=== PATIENT | male | born 1945 | race Caucasian/White ===

== ENCOUNTER → 2020-02-21 08:21 | Outpatient (BNVA) | payer OTHER, SELFPAY | PROVIDERS: Family Provider Internal Medicine; PCP Internal Medicine; Visit Provider Urology | DX: N48.6 Induration penis plastica (principal) | CPT/HCPCS: 81001 ==

== ENCOUNTER → 2021-02-20 08:42 | Outpatient (BNVA) | payer OTHER, SELFPAY | PROVIDERS: Family Provider Internal Medicine; PCP Internal Medicine; Visit Provider Urology | DX: N39.9 Disorder of urinary system, unspecified (principal); N48.6 Induration penis plastica; N52.1 Erectile dysfunction due to diseases classified elsewhere; I25.10 Atherosclerotic heart disease of native coronary artery without angina pectoris | CPT/HCPCS: 81003 ==

== ENCOUNTER → 2022-02-25 12:13 | Outpatient (BNVA) | payer OTHER, SELFPAY | PROVIDERS: Family Provider Internal Medicine; PCP Internal Medicine; Visit Provider Urology | DX: N48.6 Induration penis plastica (principal); N52.1 Erectile dysfunction due to diseases classified elsewhere | CPT/HCPCS: 99213 ==

== ENCOUNTER → 2022-09-24 10:49 | Outpatient (BNVA) | payer OTHER, SELFPAY | PROVIDERS: Family Provider Internal Medicine; PCP Internal Medicine; Referring Provider Family Medicine; Visit Provider Orthopaedic Surgery | DX: M75.102 Unspecified rotator cuff tear or rupture of left shoulder, not specified as traumatic (principal) | CPT/HCPCS: 99204 ==

== ENCOUNTER 2024-07-15 10:16 | Outpatient (CLI) | payer OTHER, SELFPAY ==
--- NOTE | 2024-07-15 10:19 | MR_ITS ---
WS: [id number] MRI BRAIN WITH HIGH-RESOLUTION IMAGING THROUGH THE INTERNAL AUDITORY CANALS WITHOUT AND WITH CONTRAST HISTORY: MIXED CONDUCTIVE AND SENSORINEURAL HEARING LOSS, TINITUS LEDY COMPARISON: None available. TECHNIQUE: Multiplanar, multisequence imaging is performed through the brain. Additional 3 mm imaging performed in multiple planes through the internal auditory canal. Postcontrast imaging with 14 ml's of MultiHance. No acute intracranial hemorrhage, midline shift, edema or mass effect. Mild atrophy with moderate periventricular and subcortical small vessel ischemic changes. Small lacun ar infarct LEFT centrum semiovale. Ventricles and extra-axial spaces are normal. No inferior displacement of cerebellar tonsils. Clivus and pituitary gland are normal. Internal and external auditory canals: Unremarkable. Cranial nerves VII and VIII complexes: Unremarkable. No enhancement or mass. Cerebellopontine angles: Normal. Paranasal sinuses: Normal. Mastoid air cells: Normal. Calvarium and scalp: Normal. Visualized solomon of Pérez and dural venous sinuses demonstrate no abnormality. MR/MR iac's wo/w con* [id number] IMPRESSION: 1. No mass or abnormal enhancement along the internal auditory canals or cereb ellopontine angles. 2. Mild cerebral atrophy with moderate small vessel ischemic disease. 3. Normal sized ventricles.
[2024-07-15] MEDS: gadobenate dimeglumine 20 mL vial 14 ML IV (11:09)
== END 2024-07-15 10:17 | disposition home or self-care (01) ==
LOC: RAD 10:17
PROVIDERS: Family Provider Internal Medicine; PCP Internal Medicine; Visit Provider Specialist
DX: I67.82 Cerebral ischemia (principal); H90.8 Mixed conductive and sensorineural hearing loss, unspecified; H93.13 Tinnitus, bilateral
CPT/HCPCS: 70553

== ENCOUNTER 2024-12-15 08:10 | Outpatient (CLI) | payer OTHER, SELFPAY ==
--- NOTE | 2024-12-15 08:17 | MM_ITS ---
WS: [id number] BILATERAL 3D TOMOSYNTHESIS DIGITAL DIAGNOSTIC MAMMOGRAPHY WITH CAD CLINICAL INFORMATION: LT ENLARGED BREAST HISTORY: LEFT breast heaviness TECHNIQUE: Bilateral CC, MLO, and ML views. FINDINGS: Scattered fibroglandular densities bilaterally. No suspicious abnormalities visualized in the LEFT breast. Ultrasound is pending in the area of concern. ULTRASOUND BREAST LEFT TECHNIQUE: Ultrasound left breast focused area of concern. CLINICAL INFORMATION: LT ENLARGED BREAST FINDINGS: Ultrasound LEFT breast. No suspicious abnormalities in the area of concern LEFT breast. Normal retroareolar tissue. No suspicious cystic or solid lesions. No lesions to target for biopsy. MM/MM diag BI tomosynthesis [id number] IMPRESSION: DENSITY: There are scattered areas of fibroglandular density. BI-RADS: 1 - Negative. FOLLOW UP: 1 Year Follow-up
== END 2024-12-15 08:11 | disposition home or self-care (01) ==
PROVIDERS: PCP Internal Medicine; Visit Provider Family Medicine
DX: D48.62 Neoplasm of uncertain behavior of left breast (principal); R92.323 Mammographic fibroglandular density, bilateral breasts
CPT/HCPCS: 76642; 77062; G0279

== ENCOUNTER 2024-12-19 14:17 | Outpatient (CLI) | payer OTHER, SELFPAY ==
--- NOTE | 2024-12-19 14:26 | MR_ITS ---
WS: [id number] MRI HEAD WITH CONTRAST TECHNIQUE: Sagittal T1, T2 axial, T2 axial FLAIR, axial susceptibility weighted imaging, axial diffusion weighted images, and coronal T2 images were obtained. Pre and post-T1 axial and post T1 coronal images. ADC and FSPGR images. CLINICAL INFORMATION: R EYE DECREASED VISION/HX PITUITARY ADENOMA COMPARISON: 2023 FINDINGS: No evidence of restricted diffusion to suggest acute ischemia. Ventricular system and basilar cisterns are patent. Moderate small vessel changes. Moderate parenchymal volume loss. This appears stable compared to previous. Stable tiny chronic lacunar infarct in the LEFT shukla radiata. Normal posterior fossa. Normal vascular flow voids at the skull base. No extra-axial fluid collections. No evidence of mass or mass effect. Paranasal sinuses and mastoid air cells are well aerated. No hemosiderin on susceptibly weighted images. Normal optic chiasm and pituitary infundibulum. No abnormal gadolinium enhancement. Normal visualized dural venous sinuses. MR/MR head wo/w con [id number] IMPRESSION: 1. No evidence of restricted diffusion to suggest acute ischemia. 2. Moderate small vessel changes with moderate parenchymal volume loss appears stable. 3. No hemosiderin on the susceptibility weighted images. 4. Normal optic chiasm and pituitary infundibulum. 5. No abnormal intracranial enhancement.
[2024-12-19] MEDS: gadobenate dimeglumine 20 mL vial IV (15:47)
== END 2024-12-19 14:18 | disposition home or self-care (01) ==
PROVIDERS: PCP Internal Medicine; Visit Provider Family Medicine
DX: Z01.89 Encounter for other specified special examinations (principal); R93.0 Abnormal findings on diagnostic imaging of skull and head, not elsewhere classified; G31.89 Other specified degenerative diseases of nervous system
CPT/HCPCS: 70553

== ENCOUNTER → 2025-01-16 07:55 | Outpatient (BNVA) | payer OTHER, SELFPAY | PROVIDERS: Family Provider Internal Medicine; PCP Internal Medicine; Referring Provider Family Medicine; Visit Provider Internal Medicine | DX: Z86.018 Personal history of other benign neoplasm (principal); H54.7 Unspecified visual loss | CPT/HCPCS: 99204 ==

== ENCOUNTER → 2025-01-30 12:50 | Outpatient (BNVA) | payer OTHER, SELFPAY | PROVIDERS: Family Provider Internal Medicine; PCP Internal Medicine; Visit Provider Nurse Practitioner Family | DX: L57.8 Other skin changes due to chronic exposure to nonionizing radiation (principal); L81.4 Other melanin hyperpigmentation; D18.01 Hemangioma of skin and subcutaneous tissue; L82.1 Other seborrheic keratosis; L57.0 Actinic keratosis | CPT/HCPCS: 17004; 99203 ==

== ENCOUNTER 2025-03-21 15:05 | Emergency (ER) | payer OTHER, MEDICARE, SELFPAY ==
--- OUTSIDE RECORDS SUMMARY | 2024-04-21 04:45 | XMS_ITS ---
Author Name [facility] [place] Organization [facility] [place] [facility] [place] Address [address] [place] [id number] Care Team Providers Care Sole Polisher Name Role Phone NAJMA HANNAH Primary Care Provider Unavailabl e Insurance Providers: All historical and current Section Date Range: From patient's date of to the date document was created. This section includes the names of all active insurance providers for the patient. Insurance Provider Type of Coverage Plan Name Start of Policy Coverage End of Policy Coverage Group Number Member ID Insurance Provider's Telephone Number Policy Walters's Name Patient's Relationship to Policy Walters MEDICARE (WNR) MEDICARE (M) PART A Jun 21, 2011 PART A [id number] RENEGAR,W AYNE PATIENT MEDICARE (WNR) MEDICARE (M) PART B Jun 21, 2011 PART B [id number] [phone] RENEGAR,W AYNE PATIENT MEDICARE (WNR) MEDICARE (M) PART A Jun 21, 2011 PART A [id number] RENEGAR,W AYNE PATIENT MEDICARE (WNR) MEDICARE (M) PART B Jun 21, 2011 PART B [id number] RENEGAR,W AYNE PATIENT Selected Encounter This section includes the information on record at [place] for the Encounter. Date/Time Encounter Type Encounter Description Reason Provider Source Apr 21, 2024 09:45 AM OFF/OP EST JANUARY X REQ PHY/QHP PRIMARY CARE/MEDICINE ICD-10-CM H61.23 Impacted cerumen, bilateral CUSTRED,MIRYAM J IHE Encounter Template Text not used by [facility] Assessments - Encounter Diagnoses This section includes the primary and secondary diagnoses documented for the Encounter. Date/Time Primary/Secondary Diagnosis Diagnosis Name Provider Source Apr 21, 2024 12:37 PM PRIMARY Impacted cerumen, bilateral CUSTRED,MIRYAM J [facility] Plan of Treatment: Future Appointments (+ 6 months) and Future Tests (+/- 45 days) The Plan of Treatment section includes future care activities for the patient [facility] [place] [facility] This section includes future appointments and future orders which are active, pending or scheduled. Future Appointments This section includes appointments that were scheduled to occur 6 months from the date of the Encounter, up to a maximum of 20 appointments. The data comes from all [place] treatment facilities. Appointment Date/Time Appointment Type Appointme nt Facility Name Apr 25, 2024 12:15 PM AMBULATORY - [facility] [facility] Apr 28, 2024 09:30 AM AMBULATORY - MEDICINE [facility] Apr 28, 2024 09:31 AM AMBULATORY - MEDICINE [facility] Jun 10, 2024 08:30 AM AMBULATORY - MEDICINE [place] [facility] Jun 27, 2024 02:45 PM AMBULATORY - MEDICINE [place] [facility] Jul 21, 2024 11:00 AM AMBULATORY - MEDICINE [place] [facility] Jul 25, 2024 01:45 PM AMBULATORY - MEDICINE [facility] Aug 11, 2024 10:30 AM AMBULATORY - MEDICINE [place] [facility] Sep 01, 2024 01:00 PM AMBULATORY - MEDICINE [facility] Sep 01, 2024 01:01 PM AMBULATORY - MEDICINE [place] Sep 08, 2024 03:00 PM AMBULATORY - MEDICINE [place] [facility] Vital Signs: All taken on the encounter date This section contains inpatient and outpatient Vital Signs collected on the date of the Encounter. Date/Time Temperature Pulse Blood Pressure Respiratory Rate SP02 Pain Height Weight Body Mass Index Source Apr 21, 2024 12:28 PM 98 52 104/65 18 [facility] Social History: Smoking Status (Most current) and Tobacco Use (All prior to encounter date) This section includes the most current, and the historical, smoking and tobacco- related health factors from the [place] facility where the Encounter took place. Current Smoking Status This section includes the most current smoking, or tobacco-related health factor, from the [place] facility where the Encounter took place. Date/Time Current Smoking Status Comment John soliman Nov 30, 2023 10:01 AM VA-TOBACCO NEVER USED [facility] Tobacco Use History This section includes a history of the smoking, or tobacco-related health factors, that were collected on or before the date of the Encounter. The data comes from the [place] facility where the Encounter took place. Date/Time Smoking Status/Tobacco Use Comment F acility Sep 02, 2022 08:30 AM VA-TOBACCO NEVER USED [facility] Jun 28, 2020 08:30 AM VA-TOBACCO NEVER USED [facility] Nov 15, 2019 02:52 PM CURRENT NON-TOBACCO USER-HX OF [facility] January 26, 2019 11:03 AM CURRENT NON-TOBACCO USER-HX OF U [facility] January 26, 2019 11:03 AM VA-TOBACCO NEVER USED [facility] Jul 07, 2008 02:31 PM QUIT TOBACCO >7 YEARS AGO [facility] Mar 27, 2005 10:05 AM LIFETIME NON-TOBACCO USER [facility] Mar 28, 2004 09:44 AM LIFETIME NON-TOBACCO USER [facility] January 19, 2003 03:09 PM LIFETIME NON-TOBACCO USER [facility] Advance Directives: All historical and current Section Date Range: From patient's date of to the date document was created. This section includes ALL of a patient's completed or amended [place] Advance and Rescinded Directives. The entries below indicate that a directive exists for the patient, but an actual copy is not included with this document. The data comes from all [facility]. Date Advance Directives Provider Source May 26, 2013 ADVANCE DIRECTIVE GERARDO FLORES [facility] May 26, 2013 ADVANCE DIRECTIVE DISCUSSION REESE DICKINSON [facility] Jun 06, 2011 ADVANCE DIRECTIVE DISCUSSION REESE DICKINSON [facility] Aug 06, 2010 ADVANCE DIRECTIVE REESE DICKINSON [facility] Encounter Notes: All associated encounter notes This section contains the clinical notes associated to the Encounter. Date/Time Encounter Note(s) Provider Source Apr 21, 2024 12:27 PM NURSING PROGRESS N OTE: LOCAL TITLE: NURSING NOTE PB STANDARD TITLE: NURSING PROGRESS NOTE DATE OF NOTE: APR 21, 2024@12:27 ENTRY DATE: APR 21, 2024@12:27:56 AUTHOR: MIRYAM GOLDSTEIN COSIGNER: URGENCY: STATUS: COMPLETED Blood Pressure: 104/65 Pulse: 52 Respiratory Rate: 18 Temperature: 98 F (36.7 C) Pulse Oximetry: 99% Active Outpatient Medications: Active Outpatient Medications (including Supplies): Active Outpatient Medications Status 1) ASPIRIN 81MG EC TAB TAKE ONE TABLET BY MOUTH ONCE A ACTIVE DAY FOR HEART 2) CHOLECALCIF 50MCG (D3-2,000UNIT) TAB TAKE TWO TABLETS ACTIVE BY MOUTH ONCE A DAY FOR VITAMIN D SUPPLEMENT 3) CLOPIDOGREL BISULFATE 75MG TAB TAKE ONE TABLET BY ACTIVE MOUTH ONCE A DAY FOR ACUTE CORONARY SYNDROME 4) FUROSEMIDE 20MG TAB TAKE ONE TABLET BY MOUTH EVERY ACTIVE DAY NEEDED FOR SWELLING OR WEIGHT GAIN 5) ISOSORBIDE MONONITRATE 60MG SA TAB TAKE ONE AND ACTIVE ONE-HALF TABLETS BY MOUTH ONCE A DAY FOR HEART AND TO PREVENT CHEST PAIN 6) PANTOPRAZOLE NA 20MG EC TAB TAKE ONE TABLET BY MOUTH ACTIVE ONCE A DAY TAKE 30 MINUTES BEFORE MEAL(S) 7) PEG 400 0.4%/PROP GLYCOL 0.3% OPH SOLN INSTILL 2 ACTIVE DROPS IN AFFECTED EYE(S) ONCE A DAY NEEDED FOR DRY EYE(S) 8) RANOLAZINE 1000MG SA TAB TAKE ONE TABLET BY MOUTH ACTIVE EVERY 12 HOURS *SWALLOW WHOLE- DO NOT CRUSH,BREAK OR CHEW* CC: Sledge presents for scheduled nurse visit for ear lavage. Subjective: states he has upcoming audiology appointment and was scheduled to come in for ear lavage. O/A: Otoscope used to visualize both ears. Ear canals clear bilaterally with no impacted cerumen. Tympanic membranes intact with no perforations, pearly white with no redness however bilateral tympanic membranes slightly bulged with fluid appreciated. Sledge denies pain, pressure, or changes in hearing. Some dizziness at times reported especially if turns head quickly. No redness or drainage. Denies nasal congestion, tickling of throat, or cough. No other signs of illness. Plan/ Intervention: Ear lavage not needed. Sledge reports he does suffer at times from allergies. Suspect fluid in ears allergy related. Educated to use OTC allergy remedy of choice either zyrtec or claritin, take 1 tablet daily. Also recommended use flonase nasal spray daily as he has some at home. If symptoms do not improve, or he develops increased pain, fever, or symptoms of illness follow up in clinic. Reports understanding. RTC: As scheduled and as needed. Per [facility] Directive 1605.06, wristband documentation: Patient wristband was removed and destroyed by (staff name) Miryam Goldstein RN and placed in the designated [employer] bin. /es/ MIRYAM TORIBIO RN [facility] Signed: 04/21/2024 12:35 MIRYAM GOLDSTEIN [facility]
--- OUTSIDE RECORDS SUMMARY | 2024-04-28 04:30 | XMS_ITS | Encounter Summary ---
Author Name [facility] [place] [facility] [place] [facility] [place] Address [address] [place] [id number] Care Team Providers Care Dedenter Name Role Phone NAJMA HANNAH Primary Care [...] PART A Jun 21, 2011 PART A [id number] RENEGAR,W AYNE PATIENT MEDICARE (WNR) MEDICARE (M) PART B Jun 21, 2011 PART B [id number] RENEGAR,W AYNE PATIENT MEDICARE (WNR) MEDICARE (M) PART B Jun 21, 2011 PART B [id number] RENEGAR,W AYNE PATIENT MEDICARE (WNR) MEDICARE (M) PART A Jun 21, 2011 PART A [id number] RENEGAR,W AYNE PATIENT Selected Encounter This section includes the information on record at [place] for the Encounter. Date/Time Encounter Type Encounter Description Reason Provider Source Apr 28, 2024 09:30 AM TELEHEALTH FACILITY FEE AUDIOLOGY ICD-10-CM H93.13 Tinnitus, bilateral GRAVES,ALEXAND RA A [facility] Encounter Template Text not used by [place] Assessments - Encounter Diagnoses This section includes the primary and secondary diagnoses documented for the Encounter. Date/Time Primary/Secondary Diagnosis Diagnosis Name Provider Source Apr 28, 2024 10:47 AM PRIMARY Tinnitus, bilateral LIUDMILA,WILLIAM [facility] Apr 28, 2024 10:47 AM SECONDARY Unspecified hearing loss, bilateral LIUDMILA,WILLIAM Kami [facility] Plan of Treatment: Future Appointments (+ 6 months) and Future Tests (+/- 45 days) The Plan of Treatment section includes future care activities for the patient [facility] [place] [facility]. This section includes future appointments and future orders which are active, pending or scheduled. Future Appointments This section includes appointments that were scheduled to occur 6 months from the date of the Encounter, up to a maximum of 20 appointments. The data comes from all [place] treatment facilities. Appointment Date/Time Appointment Type Appointme nt Facility Name Jun 10, 2024 08:30 AM AMBULATORY - [facility]ICINE [facility] Jun 27, 2024 02:45 PM AMBULATORY - MEDICINE [facility] [facility] Jul 21, 2024 11:00 AM AMBULATORY - MEDICINE [facility] [facility] Jul 25, 2024 01:45 PM AMBULATORY - MEDICINE [facility] Aug 11, 2024 10:30 AM AMBULATORY - MEDICINE [facility] [facility] Sep 01, 2024 01:00 PM AMBULATORY - MEDICINE [facility] Sep 01, 2024 01:01 PM AMBULATORY - MEDICINE [facility] Sep 08, 2024 03:00 PM AMBULATORY - MEDICINE [facility] Social History: Smoking Status (Most current) and Tobacco Use (All prior to encounter date) This section includes the most current, and the historical, smoking and tobacco- related health factors from the [place] facility where the Encounter took place. Current Smoking Status This section includes the most current smoking, or tobacco-related health factor, from the [place] facility where the Encounter took place. Date/Time Current Smoking Status Karen soliman Nov 30, 2023 10:01 AM VA-TOBACCO NEVER USED [facility] Tobacco Use History This section includes a history of the smoking, or tobacco-related health factors, that were collected on or before the date of the Encounter. The data comes from the [place] facility where the Encounter took place. Date/Time Smoking Status/Tobacco Use Comment F acility Sep 02, 2022 08:30 AM VA-TOBACCO NEVER USED [facility] Jun 28, 2020 08:30 AM VA-TOBACCO NEVER USED [facility] Nov 15, 2019 02:52 PM CURRENT NON-TOBACCO USER-HX OF U [facility] January 26, 2019 11:03 AM CURRENT NON-TOBACCO USER-HX OF U SE [facility] January 26, 2019 11:03 AM VA-TOBACCO NEVER USED [facility] Jul 07, 2008 02:31 PM QUIT TOBACCO >7 YEARS AGO [facility] Mar 27, 2005 10:05 AM LIFETIME NON-TOBACCO USER [facility] Mar 28, 2004 09:44 AM LIFETIME NON-TOBACCO USER [facility] January 19, 2003 03:09 PM LIFETIME NON-TOBACCO USER [facility] CB Advance Directives: All historical and current Section Date Range: From patient's date of to the date document was created. This section includes ALL of a patient's completed or amended [place] Advance and Rescinded Directives. The entries below indicate that a directive exists for the patient, but an actual copy is not included with this document. The data comes from all [place] facilities. Date Advance Directives Provider Source May 26, 2013 ADVANCE DIRECTIVE GERARDO FLORES [facility] May 26, 2013 ADVANCE DIRECTIVE DISCUSSION REESE DICKINSON [facility] Jun 06, 2011 ADVANCE DIRECTIVE DISCUSSION REESE DICKINSON [facility] Aug 06, 2010 ADVANCE DIRECTIVE REESE DICKINSON [facility] Encounter Notes: All associated encounter notes This section contains the clinical notes associated to the Encounter. Date/Time Encounter Note(s) Provider Source Apr 28, 2024 10:46 AM AUDIOLOGY NOTE: LOCAL TITLE: HEARING CLINIC PB STANDARD TITLE: AUDIOLOGY NOTE DATE OF NOTE: APR 28, 2024@10:46 ENTRY DATE: APR 28, 2024@10:46:06 AUTHOR: WILLIAM NUR COSIGNER: URGENCY: STATUS: COMPLETED [place] is presenting to the clinic today for his/her Telehealth appointment as scheduled. [place] was assured that the Telehealth visit is a private, confidential clinical encounter and will not be recorded. The Telehealth process, procedures and expectations were explained to the patient, allowing [place] time to voice any concerns. voiced understanding and consented to the Clinic visit. The visit proceeded without difficulty. Reported complaints: Patient seen today for an updated hearing evaluation and issue of right hearing aid replaced through loss/damage warranty. Patient reported loss of both 2020 hearing aids but time loss/damage replacement was pursued on the left hearing aid 10/22/2021. - Ear surgery: no - Aural Pain/Pressure/Drainage: intermittent bilateral pressure and long- standing - Tinnitus: bilateral/intermittent - Noise Exposure: yes Otoscopic: Used Total ENT (otoscope) to present inner ears over Tele-Med to Imaging Scheduler. Placed devices per Imaging Scheduler direction /linda/ KARTHIK REYNOSO [facility] Signed: 04/28/2024 10:47 WILLIAM NUR [facility] Apr 28, 2024 09:45 AM GENERAL MEDICINE N OTE: LOCAL TITLE: General Note PB STANDARD TITLE: GENERAL MEDICINE NOTE DATE OF NOTE: APR 28, 2024@09:45 ENTRY DATE: APR 28, 2024@09:45:12 AUTHOR: ARIADNA ROMERO EXP COSIGNER: URGENCY: STATUS: COMPLETED Eye Care At-Risk Screen : Patient identified to be at risk for the following eye condition(s): MACULAR DEGENERATION: Macular Degeneration Risk Factors Information: Reminder Term: VA-AMD RISK FACTORS Encounter Diagnosis: 11/30/2023@10:00 I25.119 (ICD-10-CM) 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 Narr. - Coronary heart disease ([facility] [id number]) Action: No Referral Ordered: Eye exam completed elsewhere by an Glass Cylinder Flanger or Kiln Transfer Operator Exam Information: Date: April 21, 2024 Findings/Comment Normal-per [place] Location: [facility] /linda/ ARIADNA ROMERO Telehealth Clinical Gimp Tacker Signed: 04/28/2024 09:46 ARIADNA ROMERO [facility]
--- OUTSIDE RECORDS SUMMARY | 2024-04-28 04:31 | XMS_ITS ---
Author Name [facility] [place] Address [address] [place] [address] Care Team Providers Care Contracts Specialist Name Role Phone NAJMA HANNAH Primary Care [...] PART A Jun 21, 2011 PART A [id number] RENEGAR,W AYNE PATIENT MEDICARE (WNR) MEDICARE (M) PART B Jun 21, 2011 PART B [id number] RENEGAR,W AYNE PATIENT MEDICARE (WNR) MEDICARE (M) PART A Jun 21, 2011 PART A [id number] RENEGAR,W AYNE PATIENT MEDICARE (WNR) MEDICARE (M) PART B Jun 21, 2011 PART B [id number] RENEGAR,W AYNE PATIENT Selected Encounter This section includes the information on [place] at [place] for the Encounter. Date/Time Encounter Type Encounter Description Reason Provider Source Apr 28, 2024 09:31 AM HEARING AID FITTING/CHECKING AUDIOLOGY ICD-10-CM H93.13 Tinnitus, bilateral GRAVES,ALEXAND RA A IHE Encounter Template Text not used by [place] Assessments - Encounter Diagnoses This section includes the primary and secondary diagnoses documented for the Encounter. Date/Time Primary/Secondary Diagnosis Diagnosis Name Provider Source Apr 28, 2024 10:18 AM PRIMARY Tinnitus, bilateral GRAVES,DARIUS A A [place] [facility] Apr 28, 2024 10:18 AM SECONDARY Unspecified hearing loss, bilateral GRAVES,DARIUS A A [place] [facility] Plan of Treatment: Future Appointments (+ 6 months) and Future Tests (+/- 45 days) The Plan of Treatment section includes future care activities for the [facility] [place] [facility] This section includes future appointments and future orders which are active, pending or scheduled. Future Appointments This section includes appointments that were scheduled to occur 6 months from the date of the Encounter, up to a maximum of 20 appointments. The data comes from all [place] treatment facilities. Appointment Date/Time Appointment Type Appointme nt Facility Name Jun 10, 2024 08:30 AM AMBULATORY - MEDICINE [place] [facility] Jun 27, 2024 02:45 PM AMBULATORY - MEDICINE [place] [facility] Jul 21, 2024 11:00 AM AMBULATORY - MEDICINE [place] [facility] Jul 25, 2024 01:45 PM AMBULATORY - MEDICINE [facility] Aug 11, 2024 10:30 AM AMBULATORY - MEDICINE [place] [facility] Sep 01, 2024 01:00 PM AMBULATORY - MEDICINE [facility] Sep 01, 2024 01:01 PM AMBULATORY - MEDICINE [place] [facility] Sep 08, 2024 03:00 PM AMBULATORY - MEDICINE [place] [facility] Advance Directives: All historical and current Section Date Range: From patient's date of to the date document was created. This section includes ALL of a patient's completed or amended [place] Advance and Rescinded Directives. The entries below indicate that a directive exists for the patient, but an actual copy is not included with this document. The data comes from all [facility]. Date Advance Directives Provider Source May 26, 2013 ADVANCE DIRECTIVE GERARDO FLORES [facility] May 26, 2013 ADVANCE DIRECTIVE DISCUSSION REESE DICKINSON [facility] Jun 06, 2011 ADVANCE DIRECTIVE DISCUSSION REESE DICKINSON [facility] Aug 06, 2010 ADVANCE DIRECTIVE ALOKREESE PHAN FF [facility] Encounter Notes: All associated encounter notes This section contains the clinical notes associated to the Encounter. Date/Time Encounter Note(s) Provider Source Jun 22, 2024 12:26 PM ADDENDUM: LOCAL TITLE: Addendum STANDARD TITLE: ADDENDUM DATE OF NOTE: JUN 22, 2024@12:26:09 ENTRY DATE: JUN 22, 2024@12:26:10 AUTHOR: GASPER HERNANDEZ COSIGNER: URGENCY: STATUS: COMPLETED Patient seen by [facility] and referred for MRI. MRI results pending. Patient may proceed with hearing aid selection as desired. Return to clinic placed for 30 minute visit to select hearing aids. This appointment may be completed via phone or check clinic. /linda/ Rocio Levine [facility] Signed: 06/22/2024 12:28 Receipt Acknowledged By: 06/22/2024 14:33 /linda/ CIERRA Taylor [facility] --- Original Document --- 04/28/24 HEARING CLINIC PB: Diagnosis: Unspecified Hearing Loss, Bilateral and Tinnitus, Bilateral Treatment: Hearing Evaluation Time spent with : 60 minutes Bartlett seen for an audiogram via Audio Telehealth and verbally consented to the Telehealth modality. Multi-factor personally identifiable information of the was obtained verbally (full name and date of ). accompanied by: none Patient site: [facility] AUDIOLOGY HEARING EVALUATION: Patient seen today for an updated hearing evaluation and issue of right hearing aid replaced through loss/damage warranty. Patient reported loss of both 2020 hearing aids but time loss/damage replacement was pursued on the left hearing aid 10/22/2021. - Ear surgery: no - Aural Pain/Pressure/Drainage: intermittent bilateral pressure and long- standing - Tinnitus: bilateral/intermittent - Noise Exposure: yes HEARING DEVICES: 05/21/21 PHONAK AUDEO P90-R AUBRIE R [id number]* 05/21/21 PHONAK AUDEO P90-R AUBRIE L [id number]* (LOST) - P RENTAL CLERK TOOL AND EQUIPMENT 4.0 - SIZE 2 - SMALL VENTED DOME 4.0 - CERUSHIELD DISK AUDIOMETRIC EXAM: Otoscopy was performed by collaboration of telehealth clinical non destructive evaluation technician and provider via telehealth technology/video otoscope which revealed: Right: unremarkable Left: minimal cerumen Tympanograms: Right: could not maintain seal Left: normal ear canal volume and no static acoustic admittance Acoustic Reflex Thresholds: could not test due to lack of hermetic seal Pure-Tone Air and Bone-Conduction Audiometric Testing revealed: Right: moderately-severe to profound hearing loss Left: moderate to profound hearing loss * Could not plateau for right or left masked bone conduction. Speech Fashion Consultant Sales Threshold testing yielded: Right: 70 dBHL Left: 70 dBHL Word Recognition testing could not be completed. TCT and bond underwriter could not adequately score due to poor audibility of patient voice despite requests for repeat. Test Reliability: Good Connected replacement right hearing aid to software to import user settings. PROVIDER COMMENTS/RECOMMENDATIONS: Hearing test results were reviewed with patient. Hearing has declined when compared to 2022 testing and new conductive component identified. Spoke with patient about ear, nose, and throat evaluation prior to hearing aid selection. PLAN: ENT consult for mixed hearing loss. Patient is seeking medical clearance for amplification. Pending medical clearance, patient will be contacted for a hearing aid selection. expressed understanding and is in agreement with the plan. /linda/ Rocio Levine [facility] Signed: 04/28/2024 10:25 GASPER HERNANDEZ [facility] Apr 28, 2024 08:08 AM AUDIOLOGY NOTE: LOCAL TITLE: HEARING CLINIC PB STANDARD TITLE: AUDIOLOGY NOTE DATE OF NOTE: APR 28, 2024@08:08 ENTRY DATE: APR 28, 2024@08:08:23 AUTHOR: GASPER HERNANDEZ EXP COSIGNER: URGENCY: STATUS: COMPLETED HEARING CLINIC PB Has ADDENDA Diagnosis: Unspecified Hearing Loss, Bilateral and Tinnitus, Bilateral Treatment: Hearing Evaluation Time spent with Bartlett: 60 minutes seen for an audiogram via Audio Telehealth and verbally consented to the Telehealth modality. Multi-factor personally identifiable information of the was obtained verbally (full name and date of ). Bartlett accompanied by: none Patient site: [facility] AUDIOLOGY HEARING EVALUATION: Patient seen today for an updated hearing evaluation and issue of right hearing aid replaced through loss/damage warranty. Patient reported loss of both 2020 hearing aids but time loss/damage replacement was pursued on the left hearing aid 10/22/2021. - Ear surgery: no - Aural Pain/Pressure/Drainage: intermittent bilateral pressure and long- standing - Tinnitus: bilateral/intermittent - Noise Exposure: yes HEARING DEVICES: 05/21/21 PHONAK AUDEO P90-R AUBRIE R [id number]* 05/21/21 PHONAK AUDEO P90-R AUBRIE L [id number]* (LOST) - P RENTAL CLERK TOOL AND EQUIPMENT 4.0 - SIZE 2 - SMALL VENTED DOME 4.0 - CERUSHIELD DISK AUDIOMETRIC EXAM: Otoscopy was performed by collaboration of telehealth clinical non destructive evaluation technician and provider via telehealth technology/video otoscope which revealed: Right: unremarkable Left: minimal cerumen Tympanograms: Right: could not maintain seal Left: normal ear canal volume and no static acoustic admittance Acoustic Reflex Thresholds: could not test due to lack of hermetic seal Pure-Tone Air and Bone-Conduction Audiometric Testing revealed: Right: moderately-severe to profound hearing loss Left: moderate to profound hearing loss * Could not plateau for right or left masked bone conduction. Speech Fashion Consultant Sales Threshold testing yielded: Right: 70 dBHL Left: 70 dBHL Word Recognition testing could not be completed. TCT and bond underwriter could not adequately score due to poor audibility of patient voice despite requests for repeat. Test Reliability: Good Connected replacement right hearing aid to software to import user settings. PROVIDER COMMENTS/RECOMMENDATIONS: Hearing test results were reviewed with patient. Hearing has declined when compared to 2022 testing and new conductive component identified. Spoke with patient about ear, nose, and throat evaluation prior to hearing aid selection. PLAN: ENT consult for mixed hearing loss. Patient is seeking medical clearance for amplification. Pending medical clearance, patient will be contacted for a hearing aid selection. expressed understanding and is in agreement with the plan. /Rocio Gleasonhing [facility] Signed: 04/28/2024 10:25 06/22/2024 ADDENDUM STATUS: COMPLETED Patient seen by [facility] and referred for MRI. MRI results pending. Patient may proceed with hearing aid selection as desired. Return to clinic placed for 30 minute visit to select hearing aids. This appointment may be completed via phone or check clinic. /Rocio Gleasonhing [facility] Signed: 06/22/2024 12:28 Receipt Acknowledged By: * AWAITING SIGNATURE * STEFFEN CISNEROS ALEXANDRA A [place] [facility]
--- OUTSIDE RECORDS SUMMARY | 2024-07-25 08:45 | XMS_ITS | Encounter Summary ---
Author Name [facility] [place] [facility] [place] Address [address] [place] [id number] Care Team Providers Care Tea Room Manager Name Role Phone NAJMA HANNAH Primary Care [...] PART A Jun 21, 2011 PART A [id number] RENEGAR,W AYNE PATIENT MEDICARE (WNR) MEDICARE (M) PART B Jun 21, 2011 PART B [id number] RENEGAR,W AYNE PATIENT MEDICARE (WNR) MEDICARE (M) PART A Jun 21, 2011 PART A [id number] RENEGAR,W AYNE PATIENT MEDICARE (WNR) MEDICARE (M) PART B Jun 21, 2011 PART B [id number] RENEGAR,W AYNE PATIENT Selected Encounter This section includes the information on record at [place] for the Encounter. Date/Time Encounter Type Encounter Description Reason Provider Source Jul 25, 2024 01:45 PM OFF/OP EST MAY X REQ PHY/QHP PRIMARY CARE/MEDICINE ICD-10-CM R07.9 Chest pain, unspecified CUSTRED,MIRYAM J IHE Encounter Template Text not used by [place] Assessments - Encounter Diagnoses This section includes the primary and secondary diagnoses documented for the Encounter. Date/Time Primary/Secondary Diagnosis Diagnosis Name Provider Source Jul 25, 2024 03:02 PM PRIMARY Chest pain, unspecified CUSTRED,MIRYAM J [facility] Plan of Treatment: Future Appointments (+ 6 months) and Future Tests (+/- 45 days) The Plan of Treatment section includes future care activities for the patient from all [place] treatmentfacilities. This section includes future appointments and future orders which are active, pending or scheduled. Future Appointments This section includes appointments that were scheduled to occur 6 months from the date of the Encounter, up to a maximum of 20 appointments. The data comes from all [place] treatment facilities. Appointment Date/Time Appointment Type Appointme nt Facility Name Aug 11, 2024 10:30 AM AMBULATORY - MEDICINE [place] [facility] Sep 01, 2024 01:00 PM AMBULATORY - MEDICINE [facility] Sep 01, 2024 01:01 PM AMBULATORY - MEDICINE [place] [facility] Sep 08, 2024 03:00 PM AMBULATORY - MEDICINE [place] [facility] Nov 23, 2024 09:20 AM AMBULATORY - MEDICINE [facility] Nov 29, 2024 09:15 AM AMBULATORY - MEDICINE [facility] Nov 29, 2024 09:16 AM AMBULATORY - MEDICINE [facility] Dec 15, 2024 09:45 AM AMBULATORY - NONE [place] [facility] Dec 19, 2024 02:30 PM AMBULATORY - MEDICINE [place] [facility] Jan 03, 2025 09:30 AM AMBULATORY - MEDICINE [place] [facility] Jan 05, 2025 12:15 PM [facility] [place] [facility] Jan 11, 2025 03:20 PM AMBULATORY - MEDICINE [place] [facility] Jan 16, 2025 08:15 AM AMBULATORY - MEDICINE [place] [facility] Lab Results: +/- 30 days of the encounter This section includes the Chemistry and Hematology Lab Results on record with [place] for the patient. Radiology Reports and Pathology Reports are provided separately, in subsequent sections. Lab Results This section contains the Chemistry/Hematology Results that were resulted 30 days before or 30 daysafter the date of the Encounter. Date/Time Source Result Type Result - Unit Interpretation Reference Range Specimen Type Comment 2024 08:00 AM [facility] OCCULT BLOOD FIT X1 SCREEN FECES Specimen Typ e: FECES No comment entered. Ordering Provider: NAJMA HANNAH Report Released Date/Time: Jun 03, 2024 08:57 AM Reporting Lab: [place] [facility] [address] [place] [address] Performing Lab: [place] [facility] [address] [place] [address] OCCULT BLOOD (FIT) #1 OF 1 Negative Vital Signs: All taken on the encounter date This section contains inpatient and outpatient Vital Signs collected on the date of the Encounter. Date/Time Temperature Pulse Blood Pressure Respiratory Rate SP02 Pain Height Weight Body Mass Index Source Jul 25, 2024 02:48 PM 97.8 56 134/70 [facility] Social History: Smoking Status (Most current) and Tobacco Use (All prior to encounter date) This section includes the most current, and the historical, smoking and tobacco- related health factors from the [place] facility where the Encounter took place. Current Smoking Status This section includes the most current smoking, or tobacco-related health factor, from the [place] facility where the Encounter took place. Date/Time Current Smoking Status Comment John ity Nov 30, 2023 10:01 AM VA-TOBACCO NEVER USED [facility] Tobacco Use History This section includes a history of the smoking, or tobacco-related health factors, that were collected on or before the date of the Encounter. The data comes from the [place] facility where the Encounter took place. Date/Time Smoking Status/Tobacco Use Comment F acility Sep 02, 2022 08:30 AM VA-TOBACCO NEVER USED [facility] Jun 28, 2020 08:30 AM VA-TOBACCO NEVER USED [facility] Nov 15, 2019 02:52 PM CURRENT NON-TOBACCO USER-HX OF U [facility] January 26, 2019 11:03 AM CURRENT NON-TOBACCO USER-HX OF [facility] January 26, 2019 11:03 AM VA-TOBACCO NEVER USED [facility] Jul 07, 2008 02:31 PM QUIT TOBACCO >7 YEARS AGO [facility] Mar 27, 2005 10:05 AM LIFETIME NON-TOBACCO USER [facility] Mar 28, 2004 09:44 AM LIFETIME NON-TOBACCO USER [facility] January 19, 2003 03:09 PM LIFETIME NON-TOBACCO USER [facility] Advance Directives: All historical and current Section Date Range: From patient's date of to the date document was created. This section includes ALL of a patient's completed or amended [place] Advance and Rescinded Directives. The entries below indicate that a directive exists for the patient, but an actual copy is not included with this document. The data comes from all [facility]. Date Advance Directives Provider Source May 26, 2013 ADVANCE DIRECTIVE GERARDO FLORES [facility] May 26, 2013 ADVANCE DIRECTIVE DISCUSSION REESE DICKINSON [facility] Jun 06, 2011 ADVANCE DIRECTIVE DISCUSSION REESE DICKINSON [facility] Aug 06, 2010 ADVANCE DIRECTIVE REESE DICKINSON [facility] Radiology Reports: +/- 30 days of the encounter Radiology Reports For cases when an order for radiology services may have been completed prior to the date of the Encounter, the report list includes the Radiology Reports that were completed up to 30 days before dateof the Encounter. For cases when an order for radiology services may have been completed after the date of the Encounter, the report list also includes the Radiology Reports that were completed up to30 days after date of the Encounter. The data comes from all [place] treatment facilities. Date/Time Radiology Report Provider Source Jul 25, 2024 02:15 PM CHEST X-RAY, 2 VIE WS: LOUANN GERBER [id number] M Ex Date: JUL 25, 2024@14:15 Req Phys: NAJMA HANNAH Pat Loc: PB-[facility] PACT [facility] (Req'g L Img Loc: PB-XRAY [facility] Service: [place] [address] (Case [id number] COMPLETE) CHEST X-RAY, 2 VIEWS (RAD Detailed) CPT:95880 Reason for Study: chest discomfort Clinical History: r/o pneumonia Report Status: Verified Date Reported: JUL 25, 2024 Date Verified: JUL 25, 2024 Automatic Seamer E-Sig: Report: Chest 2 views. No infiltrates or effusions seen. Heart normal size. Mild scarring left lung base similar previous studies name back to 06/26/2020. Plaque thoracic aorta. Postop changes. Degenerative changes thoracic spine. Impression: No acute cardiopulmonary change since previous studies Primary Interpreting Staff: DERRICK REDMOND, RADIOLOGIST (Automatic Seamer, no e-sig) /DERRICK Michael [facility] Encounter Notes: All associated encounter notes This section contains the clinical notes associated to the Encounter. Date/Time Encounter Note(s) Provider Source Jul 25, 2024 02:47 PM NURSING PROGRESS N OTE: LOCAL TITLE: NURSING NOTE PB STANDARD TITLE: NURSING PROGRESS NOTE DATE OF NOTE: JUL 25, 2024@14:47 ENTRY DATE: JUL 25, 2024@14:47:21 AUTHOR: MIRYAM GOLDSTEIN COSIGNER: URGENCY: STATUS: COMPLETED NURSING NOTE PB Has ADDENDA Blood Pressure: 134/70 Pulse: 56 Temperature: 97.8 F (36.6 C) Pulse Oximetry: 96% Active Outpatient Medications: Active Outpatient Medications (including Supplies): Active Outpatient Medications Status 1) ASPIRIN 81MG EC TAB TAKE ONE TABLET BY MOUTH ONCE A ACTIVE DAY FOR HEART 2) CHOLECALCIF 50MCG (D3-2,000UNIT) TAB TAKE TWO TABLETS ACTIVE BY MOUTH ONCE A DAY FOR VITAMIN D SUPPLEMENT 3) ISOSORBIDE MONONITRATE 60MG SA TAB TAKE ONE AND ACTIVE ONE-HALF TABLETS BY MOUTH ONCE A DAY FOR HEART AND TO PREVENT CHEST PAIN 4) PEG 400 0.4%/PROP GLYCOL 0.3% OPH SOLN INSTILL 2 ACTIVE DROPS IN AFFECTED EYE(S) ONCE A DAY NEEDED FOR DRY EYE(S) 5) RANOLAZINE 1000MG SA TAB TAKE ONE TABLET BY MOUTH ACTIVE EVERY 12 HOURS *SWALLOW WHOLE- DO NOT CRUSH,BREAK OR CHEW* 6) SACUBITRIL 49MG/VALSARTAN 51MG TAB TAKE ONE-HALF ACTIVE TABLET BY MOUTH TWICE A DAY CC: [place] presents to clinic with stated possible pneumonia. Subjective: [place] reports he has had chest congestion and cough for a couple of weeks. Now he is having pain that comes and goes under left breast. States when he moves breast tissue or presses on chest he notices soreness. Denies fever, chills, dizziness, palpitations, or difficulty breathing. O/A: [place] is alert and oriented. Respirations easy with no dypsnea noted. Lung sounds auscultated and are mostly clear with some decreased breath sounds over left lung field. Heart rate regular apically with no peripheral edema. Plan/ Intervention: Discussed with PACT PCP. Chest xray ordered and obtained with results pending. educated that if he develops chest pains, shortness of breath, fevers, chills, or any other symptoms report to ER for evaluation. will be called when CXR read and Dr. Hannah has reviewed. Telephone number confirmed. RTC: As scheduled and as needed. Per [facility] Directive 1605.06, wristband documentation: Patient wristband was removed and destroyed by (staff name) Miryam Goldstein RN and placed in the designated [employer] bin. CHEST X-RAY, 2 VIEWS Exm Date: JUL 25, 2024@14:15 Req Phys: NAJMA HANNAH Pat Loc: [facility] [place] (Req'g L Img Loc: PB-XRAY [facility] Service: [place] [address] (Case [id number] COMPLETE) CHEST X-RAY, 2 VIEWS (RAD Detailed) CPT:97173 Reason for Study: chest discomfort Clinical History: r/o pneumonia Report Status: Verified Date Reported: JUL 25, 2024 Date Verified: JUL 25, 2024 Automatic Seamer E-Sig: Report: Chest 2 views. No infiltrates or effusions seen. Heart normal size. Mild scarring left lung base similar previous studies name back to 06/26/2020. Plaque thoracic aorta. Postop changes. Degenerative changes thoracic spine. Impression: No acute cardiopulmonary change since previous studies Primary Interpreting Staff: DERRICK REDMOND, RADIOLOGIST (Automatic Seamer, no e-sig) /kbm Select an imaging exam... /es/ MIRYAM TORIBIO, RN [facility] Signed: 07/25/2024 14:59 Receipt Acknowledged By: 07/25/2024 16:06 /linda/ NAJMA HANNAH MD 07/25/2024 ADDENDUM STATUS: COMPLETED Exam Date/Time 07/25/2024 14:15 Procedure Name CHEST X-RAY, 2 VIEWS Reason for Study chest discomfort Clinical History r/o pneumonia Impression No acute cardiopulmonary change since previous studies Report Chest 2 views. No infiltrates or effusions seen. Heart normal size. Mild scarring left lung base similar previous studies name back to 06/26/2020. Plaque thoracic aorta. Postop changes. Degenerative changes thoracic spine. Primary Diagnostic Code: NO ALERT REQUIRED Secondary Diagnostic Codes: NONE Facility: [facility] = Team: Please call the patient and let him know that his cough sounds like it is not secondary to pneumonia. Which is excellent x-ray did not reveal any pneumonia this is great. I would like to treat him with conservative treatment for his cough. I will mail him some medication for it. /linda/ NAJMA HANNAH MD Signed: 07/25/2024 16:07 MIRYAM GOLDSTEIN [facility]
--- OUTSIDE RECORDS SUMMARY | 2024-07-28 08:32 | XMS_ITS ---
Author Name [facility] [place] Organization [facility] [place] Address [address] [place] [address] Care Team Providers Care Electric Dolly Operator Name Role Phone NAJMA HANNAH Primary Care [...] Policy [place] MEDICARE (WNR) MEDICARE (M) PART B Jun 21, 2011 PART B [id number] RENEGAR,W AYNE PATIENT MEDICARE (WNR) MEDICARE (M) PART A Jun 21, 2011 PART A [id number] [phone] RENEGAR,W AYNE PATIENT MEDICARE (WNR) MEDICARE (M) PART A Jun 21, 2011 PART A [id number] RENEGAR,W AYNE PATIENT MEDICARE (WNR) MEDICARE (M) PART B Jun 21, 2011 PART B [id number] RENEGAR,W AYNE PATIENT Selected Encounter This section includes the information on record at [place] for the Encounter. Date/Time Encounter Type Encounter Description Reason Pro vider Source Jul 28, 2024 01:32 PM Outpatient Encounter ADMIN PAT ACTIVTIES (MASNONCT) IHE Encounter Template Text not used by PA Plan of Treatment: Future Appointments (+ 6 months) and Future Tests (+/- 45 days) The Plan of Treatment section includes future care activities for the patient from all [place] [facility] This section includes future appointments and future orders which are active, pending or scheduled. Future Appointments This section includes appointments that were scheduled to occur 6 months from the date of the Encounter, up to a maximum of 20 appointments. The data comes from all [place] treatment facilities. Appointment Date/Time Appointment Type Appointme nt Facility Name Aug 11, 2024 10:30 AM AMBULATORY [place] [facility] Sep 01, 2024 01:00 PM AMBULATORY - MEDICINE [facility] Sep 01, 2024 01:01 PM [place] [facility] Sep 08, 2024 03:00 PM AMBULATORY [place]IC[place] [facility] Nov 23, 2024 09:20 AM AMBULATORY - MEDICINE [facility] Nov 29, 2024 09:15 AM AMBULATORY - MEDICINE [facility] Nov 29, 2024 09:16 AM AMBULATORY - MEDICINE [facility] Dec 15, 2024 09:45 AM AMBULATORY - NONE [place] [facility] Dec 19, 2024 02:30 PM AM[place]ORY [place] [facility] Jan 03, 2025 09:30 AM AM[place]ORY [place] [facility] Jan 05, 2025 12:15 PM AM[place]ORY [place]IC[place] [facility] Jan 11, 2025 03:20 PM AM[place]ORY - [place]IC[place] [facility] Jan 16, 2025 08:15 AM AM[place]ORY - [place] [facility] Lab Results: +/- 30 days of the encounter This section includes the Chemistry and Hematology Lab Results on record with PA for the patient. Radiology Reports and Pathology Reports are provided separately, in subsequent sections. Lab Results This section contains the Chemistry/Hematology Results that were resulted 30 days before or 30 daysafter the date of the Encounter. Date/Time Source Result Type Result - Unit Interpretation Reference Range Specimen Type Comment 2024 08:00 AM [facility] OCCULT BLOOD FIT X1 SCREEN FECES Specimen Typ e: FECES No comment entered. Ordering Provider: NAJMA HANNAH Report Released Date/Time: Jun 03, 2024 08:57 AM Reporting Lab: [place] [facility] [address] [place] [address] Performing Lab: [place] [facility] [address] [place] [address] OCCULT BLOOD (FIT) #1 OF 1 Negative Social History: Smoking Status (Most current) and Tobacco Use (All prior to encounter date) This section includes the most current, and the historical, smoking and tobacco- related health factors from the PA facility where the Encounter took place. Current Smoking Status This section includes the most current smoking, or tobacco-related health factor, from the [place] facility where the Encounter took place. Date/Time Current Smoking Status Comment Facil ity Nov 30, 2023 10:01 AM VA-TOBACCO NEVER USED [facility] [place] [facility] Tobacco Use History This section includes a history of the smoking, or tobacco-related health factors, that were collected on or before the date of the Encounter. The data comes from the [place] facility where the Encounter took place. Date/Time Smoking Status/Tobacco Use Comment F acility Sep 02, 2022 08:30 AM VA-TOBACCO NEVER USED [facility] Jun 28, 2020 08:30 AM VA-TOBACCO NEVER USED [facility] Nov 15, 2019 02:52 PM CURRENT NON-TOBACCO [facility] January 26, 2019 11:03 AM CURRENT NON-TOBACCO USER-HX OF [facility] January 26, 2019 11:03 AM VA-TOBACCO NEVER USED [facility] Jul 07, 2008 02:31 PM QUIT TOBACCO >7 YEARS AGO [facility] Mar 27, 2005 10:05 AM LIFETIME NON-TOBACCO USER [facility] Mar 28, 2004 09:44 AM LIFETIME NON-TOBACCO USER [facility] January 19, 2003 03:09 PM LIFETIME NON-TOBACCO USER [facility] Advance Directives: All historical and current Section Date Range: From patient's date of to the date document was created. This section includes ALL of a patient's completed or amended VA Advance and Rescinded Directives. The entries below indicate that a directive exists for the patient, but an actual copy is not included with this document. The data comes from all [place] facilities. Date Advance Directives Provider Source May 26, 2013 ADVANCE DIRECTIVE GERARDO FLORES [place] [facility] May 26, 2013 ADVANCE DIRECTIVE DISCUSSION REESE DICKINSON [facility] Jun 06, 2011 ADVANCE DIRECTIVE DISCUSSION REESE DICKINSON [facility] Aug 06, 2010 ADVANCE DIRECTIVE REESE DICKINSON EMILIE YE [facility] Radiology Reports: +/- 30 days [...] the Encounter. The data comes from all [place] treatment facilities. Date/Time Radiology Report Provider Source Jul 25, 2024 02:15 PM CHEST X-RAY, 2 VIE WS: LOUANN GERBER [id number] -[id number] M Ex Date: JUL 25, 2024@14:15 Req Phys: NAJMA HANNAH Pat Loc: [facility] PACT [place] [facility] (Req'g L Img Loc: PB-XRAY [place] Service: [place] [address] (Case [id number] COMPLETE) CHEST X-RAY, 2 VIEWS (RAD Detailed) CPT:34728 Reason for Study: chest discomfort Clinical History: r/o pneumonia Report Status: Verified Date Reported: JUL 25, 2024 Date Verified: JUL 25, 2024 Central Office Repairer E-Sig: Report: Chest 2 views. No infiltrates or effusions seen. Heart normal size. Mild scarring left lung base similar previous studies name back to 06/26/2020. Plaque thoracic aorta. Postop changes. Degenerative changes thoracic spine. Impression: No acute cardiopulmonary change since previous studies Primary Interpreting Staff: DERRICK REDMOND, RADIOLOGIST (Central Office Repairer, no e-sig) /DERRICK Michael [facility] Encounter Notes: All associated encounter notes This section contains the clinical notes associated to the Encounter. Date/Time Encounter Note(s) Provider Source Jul 28, 2024 01:32 PM GENERAL MEDICINE N OTE: LOCAL TITLE: General Note PB STANDARD TITLE: GENERAL MEDICINE NOTE DATE OF NOTE: JUL 28, 2024@13:32 ENTRY DATE: JUL 28, 2024@13:32:49 AUTHOR: ARIADNA ROMERO EXP COSIGNER: URGENCY: STATUS: COMPLETED Received hearing aid devices, certified in [place]. has pending appt for fitting /es/ ARIADNA ROMERO [facility] Licensed Practical Nurse Signed: 07/28/2024 13:33 [facility]
--- OUTSIDE RECORDS SUMMARY | 2024-09-01 08:01 | XMS_ITS | Encounter Summary ---
Author Name [facility] [place] [place] Organization [place] Address [address] [place] [address] Care Team Providers Care Fiction And Nonfiction Writer Prose Name Role Phone NAJMA HANNAH Primary Care [...] PART A Jun 21, 2011 PART A [id number] RENEGAR,W AYNE PATIENT MEDICARE (WNR) MEDICARE (M) PART B Jun 21, 2011 PART B [id number] RENEGAR,W AYNE PATIENT MEDICARE (WNR) MEDICARE (M) PART A Jun 21, 2011 PART A [id number] [phone] RENEGAR,W AYNE PATIENT MEDICARE (WNR) MEDICARE (M) PART B Jun 21, 2011 PART B [id number] RENEGAR,W AYNE PATIENT Selected Encounter This section includes the information on record at OR for the Encounter. Date/Time Encounter Type Encounter Description Reason Provider Source Sep 01, 2024 01:01 PM CONFORMITY EVALUATION AUDIOLOGY ICD-10-CM Z46.1 Encounter for fitting and adjustment of hearing aid FÉLIX HERNANDEZ RA [facility] Encounter Template Text not used by OR Assessments - Encounter Diagnoses This section includes the primary and secondary diagnoses documented for the Encounter. Date/Time Primary/Secondary Diagnosis Diagnosis Name Provider Source Sep 01, 2024 12:48 PM PRIMARY Encounter for fitting and adjustment of hearing aid DARIUS HERNANDEZ [place] [facility] Sep 01, 2024 12:48 PM SECONDARY Tinnitus, bilateral DARIUS HERNANDEZ [place] [facility] Sep 01, 2024 12:48 PM SECONDARY Unspecified hearing loss, bilateral FÉLIX HERNANDEZR A A [place] [facility] Plan of Treatment: Future Appointments (+ 6 months) and Future Tests (+/- 45 days) The Plan of Treatment section includes future care activities for the patient from all [place] [facility]. This section includes future appointments and future orders which are active, pending or scheduled. Future Appointments This section includes appointments that were scheduled to occur 6 months from the date of the Encounter, up to a maximum of 20 appointments. The data comes from all [place] treatment facilities. Appointment Date/Time Appointment Type Appointme nt Facility Name Sep 08, 2024 03:00 PM AMBULATORY - MEDICINE [place] [facility] Nov 23, 2024 09:20 AM AMBULATORY - MEDICINE [facility] Nov 29, 2024 09:15 AM AMBULATORY - MEDICINE [facility] Nov 29, 2024 09:16 AM AMBULATORY - MEDICINE [facility] Dec 15, 2024 09:45 AM AMBULATORY - NONE [place] [facility] Dec 19, 2024 02:30 PM AMBULATORY - [place]ICINE [place] [facility] Jan 03, 2025 09:30 AM AMBULATORY - MEDICINE [place] [facility] Jan 05, 2025 12:15 PM AMBULATORY - MEDICINE [place] [facility] Jan 11, 2025 03:20 PM AMBULATORY - [place]ICINE [place] [facility] Jan 16, 2025 08:15 AM AMBULATORY - MEDICINE [place] [facility] January 30, 2025 01:00 PM AMBULATORY - MEDICINE [place] [facility] Advance Directives: All historical and current Section Date Range: From patient's date of to the date document was created. This section includes ALL of a patient's completed or amended [place] Advance and Rescinded Directives. The entries below indicate that a directive exists for the patient, but an actual copy is not included with this document. The data comes from all [place] facilities. Date Advance Directives Provider Source May 26, 2013 ADVANCE DIRECTIVE GERARDO FLORES [facility] May 26, 2013 ADVANCE DIRECTIVE DISCUSSION REESE DICKINSON [facility] Jun 06, 2011 ADVANCE DIRECTIVE DISCUSSION REESE DICKINSON [facility] Aug 06, 2010 ADVANCE DIRECTIVE REESE DICKINSON [facility] Encounter Notes: All associated encounter notes This section contains the clinical notes associated to the Encounter. Date/Time Encounter Note(s) Provider Source Sep 01, 2024 08:02 AM AUDIOLOGY NOTE: LOCAL TITLE: HEARING CLINIC PB STANDARD TITLE: AUDIOLOGY NOTE DATE OF NOTE: SEP 01, 2024@08:02 ENTRY DATE: SEP 01, 2024@08:02:13 AUTHOR: GASPER HERNANDEZ COSIGNER: URGENCY: STATUS: COMPLETED Diagnosis: Unspecified Hearing Loss, Bilateral and Tinnitus, Bilateral Treatment: Hearing Aid Fitting Time spent with : 60 minutes [place] seen for a hearing aid fitting via Audio Telehealth and verbally consented to the Telehealth modality. Multi-factor personally identifiable information of the was obtained verbally (full name and date of ). accompanied by: none Patient site: [facility] SUBJECTIVE: Patient is here for the issue of new hearing aids. HEARING DEVICES: was fit with the following hearing devices and accessories today: 08/2024 PHONAK AUDEO L90-R AUBRIE R [id number] 08/21/27 01/18/2508/2024 PHONAK AUDEO L90-R AUBRIE L [id number] 08/21/27 01/18/25 - P VENEER STAPLER 5.0 - SIZE 2 - VENTED DOME 4.0 - SMALL - CERUSTOP - NO RETENTION TAILS Accessories: REMOTECONTROL Phone Connectivity: streaming BACK-UP HEARING DEVICES: 05/21/21 PHONAK AUDEO P90-R AUBRIE R [id number] 05/21/21 PHONAK AUDEO P90-R AUBRIE L [id number]* (LOST) - P VENEER STAPLER 4.0 - SIZE 2 - SMALL VENTED DOME 4.0 - CERUSHIELD DISK OBJECTIVE/ASSESSMENT: Otoscopy was performed by collaboration of telehealth clinical it service technician and provider via telehealth technology/video otoscope which revealed: Right: unremarkable Left: minimal cerumen Probe-Microphone Measures: Conformity evaluation was performed using real ear measures with NAL-NL2 ([employer]) targets. Maximum output was within the predicted upper limit of comfort. Hearing aids set to 95% target gain per patient subjective listening preference. Feedback warehouse delivery manager completed. Familiarized patient with sound indicators (low battery signal, volume control, etc.). Device(s) issued in Remote Inventory Control Manager System. Physical Fit/Comfort: Good per patient. Sound Quality: Good per patient. Settings: - Programs: Automatic - Push button: enabled - Volume control: short press - Program change: medium press - On/Off device: long press Phone Connectivity: - streaming. A test call confirmed proper connectivity. DIRECT PATIENT EDUCATION-30 minutes [place] educated on: - Use of batteries/councilor - Hearing aid care and maintenance - Adjustment period/ importance of daily consistent use (8- 12hrs/day) - Realistic expectations - Effective communication strategies - Pet/child warning - Patient instructed not to wear devices in excessive noise - Installation and use of additional accessories - Ordering supplies through [facility] - Repair process - Trial period [place] demonstrated how to: - Insert/remove hearing aid(s) - Adjust volume control/program switch - Change batteries/charge hearing aid(s) was provided: - Hearing aid manual - [place] form 2477b [place] was counseled/educated on services provided today and is in agreement with the plan. Patient was given clinic phone number and encouraged to contact the clinic as needs arise. PLAN: Patient is an experienced hearing aid user and did not wish to schedule a follow-up appointment at this time. IOI-OREILLY provided to patient for completion in one month. /linda/ Rocio Levine [facility] Signed: 09/01/2024 13:10 GASPER HERNANDEZ [facility]
--- OUTSIDE RECORDS SUMMARY | 2024-11-29 04:15 | XMS_ITS | Encounter Summary ---
Author Name [facility] Organization [facility] Address [address] [place] [id number] Care Team Providers Care Manager Audit Name Role Phone NAJMA HANNAH Primary Care [...] PART A Jun 21, 2011 PART A [id number] RENEGAR,W AYNE PATIENT MEDICARE (WNR) MEDICARE (M) PART B Jun 21, 2011 PART B [id number] RENEGAR,W AYNE PATIENT MEDICARE (WNR) MEDICARE (M) PART A Jun 21, 2011 PART A [id number] RENEGAR,W AYNE PATIENT MEDICARE (WNR) MEDICARE (M) PART B Jun 21, 2011 PART B [id number] [phone] RENEGAR,W AYNE PATIENT Selected Encounter This section includes the information on record at NH for the Encounter. Date/Time Encounter Type Encounter Description Reason Provider Source Nov 29, 2024 09:15 AM TELEHEALTH FACILITY FEE PRIMARY CARE/MEDICINE ICD-10-CM Z00.01 Encounter for general adult medical exam w abnormal findings NAJMA HANNAH [place] Encounter Template Text not used by NH Assessments - Encounter Diagnoses This section includes the primary and secondary diagnoses documented for the Encounter. Date/Time Primary/Secondary Diagnosis Diagnosis Name Provider Source Nov 30, 2024 03:36 PM PRIMARY Encounter for general adult medical exam w abnormal findings LELE HERNADEZ [facility] Plan of Treatment: Future Appointments (+ 6 months) and Future Tests (+/- 45 days) The Plan of Treatment section includes future care activities for the patient [facility] This section includes future appointments and future orders which are active, pending or scheduled. Future Appointments This section includes appointments that were scheduled to occur 6 months from the date of the Encounter, up to a maximum of 20 appointments. The data comes from all [facility]. Appointment Date/Time Appointment Type Appointme nt Facility Name Dec 15, 2024 09:45 AM AMBULATORY - NONE [facility] Dec 19, 2024 02:30 PM AMBULATORY - MEDICINE [facility] Jan 03, 2025 09:30 AM AMBULATORY - MEDICINE [facility] Jan 05, 2025 12:15 PM AMBULATORY - MEDICINE [facility] Jan 11, 2025 03:20 PM AMBULATORY - MEDICINE [facility] Jan 16, 2025 08:15 AM AMBULATORY - MEDICINE [facility] January 30, 2025 01:00 PM AMBULATORY - MEDICINE [facility] Mar 21, 2025 02:00 PM AMBULATORY - MEDICINE [facility] Mar 28, 2025 10:00 AM AMBULATORY - MEDICINE [facility] Active, Pending, and Scheduled Orders This section includes a listing of several types of active, pending, and scheduled orders, including clinic medications orders, diagnostic test orders, procedure orders and consult orders; where the start date of the order is 45 days before the date of the Encounter or 45 days after the date of theEncounter. The data comes from all [facility]. Test Date/Time Test Type Test Details Facility Name Nov 29, 2024 12:00 AM Laboratory - Chemi stry Order CORTISOL (PB-MA) GOLD/RED SST SERUM SP [facility] Nov 29, 2024 12:00 AM Laboratory - Chemi stry Order ACTH LAVENDER BLOOD PLASMA [facility] Nov 29, 2024 12:00 AM Laboratory - Chemi stry Order TSH (MA-PB) GOLD/RED SST SERUM [facility] Nov 29, 2024 12:00 AM Laboratory - Chemi stry Order FREE T4 (MA-PB) GOLD/RED SST SERUM [facility] Nov 29, 2024 12:00 AM Laboratory - Chemi stry Order TOTAL T3 (STL-PB) GREEN LI-HEP PLASMA [facility] Nov 29, 2024 12:00 AM Laboratory - Chemi stry Order LUTEINIZING HORMONE GOLD/RED SST SERUM [facility] Nov 29, 2024 12:00 AM Laboratory - Chemi stry Order FSH (PB) GOLD/RED SST SERUM [facility] Nov 29, 2024 12:00 AM Laboratory - Chemi stry Order TESTOSTERONE, TOTAL (PB-MA) GOLD/RED SST SERUM [facility] Nov 29, 2024 12:00 AM Laboratory - Chemi stry Order UREA NITROGEN GREEN LI/HEP BLD/PLAS PL[facility] Nov 29, 2024 12:00 AM Laboratory - Chemi stry Order CREATININE(EGFR) GREEN LI/HEP BLD/PLAS PLAS[facility] Nov 29, 2024 12:00 AM Laboratory - Chemi stry Order PROLACTIN (MA-PB-EV) GOLD/RED SST SERUM [facility] Nov 29, 2024 12:49 PM Consult Order [facility]-ENDOCRINOLOGY [id number] Cons Manager [employer]'s Choice [facility] Dec 09, 2024 05:31 PM Consult Order [facility]-DERMATOLOGY [id number] Cons Manager Market [employer]'s Choice [facility] Lab Results: +/- 30 days of the encounter This section includes the Chemistry and Hematology Lab Results on record with NH for the patient. Radiology Reports and Pathology Reports are provided separately, in subsequent sections. Lab Results This section contains the Chemistry/Hematology Results that were resulted 30 days before or 30 daysafter the date of the Encounter. Date/Time Source Result Type Result - Unit Interpretation Reference Range Specimen Type Comment Nov 23, 2024 09:47 AM [facility] B12 SERUM Specimen Type: SERUM No comment entered. Ordering Provider: NAJMA HANNAH Report Released Date/Time: Nov 23, 2024 09:47 AM Reporting Lab: [place] [facility] [address] [place] [address] Performing Lab: [place] [facility] [address] [place] [address] B12 297 pg/mL 213-816 Nov 23, 2024 09:47 AM [place] [facility] FOLATE (PB) SERUM Specimen Ty pe: SERUM No comment entered. Ordering Provider: NAJMA HANNAH Report Released Date/Time: Nov 23, 2024 09:47 AM Reporting Lab: [place] [facility] [address] [place] [address] Performing Lab: [place] [facility] [address] [place] [address] FOLATE (PB) 6.8 ng/mL L 7-20 Nov 23, 2024 09:47 AM [place] [facility] HGA1C BLOO D Specimen Type: BLOOD No comment entered. Ordering Provider: NAJMA HANNAH Report Released Date/Time: Nov 23, 2024 09:47 AM Reporting Lab: [place] [facility] [address] [place] [address] Performing Lab: [place] [facility] [address] [place] [address] HGA1C 5.4 4.0-6.0 Nov 23, 2024 09:47 AM [facility] [facility] CHOLESTEROL PANEL (PB) PLASMA Specimen Type: P LASMA No comment entered. Ordering Provider: NAJMA HANNAH Report Released Date/Time: Nov 23, 2024 09:47 AM Reporting Lab: [place] [facility] [address] [place] [address] Performing Lab: [place] [facility] [address] [place] [address] CHOLESTEROL 185 mg/dL 0-200 TRIGLYCERIDE 76 mg/dL 0-150 CALCULATED LDL 108.4 mg/dL HDL(New) 61.4 mg/dL H >40 HDL % OF TOTAL CHOLESTEROL (PB) 33.2 >25 Nov 23, 2024 09:47 AM [place] [facility] TSH (MA-PB) SERUM Specimen Ty pe: SERUM No comment entered. Ordering Provider: NAJMA HANNAH Report Released Date/Time: Nov 23, 2024 09:47 AM Reporting Lab: [place] [facility] [address] [place] [address] Performing Lab: [place] [facility] [address] [place] [address] TSH 1.592 u[IU]/mL Nov 23, 2024 09:47 AM [facility] VITAMIN D, 25-HYDROXY SERUM Specimen Type: SE RUM No comment entered. Ordering Provider: NAJMA HANNAH Report Released Date/Time: Nov 23, 2024 09:47 AM Reporting Lab: [place] [facility] [address] [place] [address] Performing Lab: [place] [facility] [address] [place] [address] VITAMIN D, 25-HYDROXY 44.7 ng/mL 30-96 Nov 23, 2024 09:47 AM [facility] COMPREHENSIVE METABOLIC PANEL PLASMA Specimen Type: PLASMA No comment entered. Ordering Provider: NAJMA HANNAH Report Released Date/Time: Nov 23, 2024 09:47 AM Reporting Lab: [place] [facility] [address] [place] [address] Performing Lab: [place] [facility] [address] [place] [address] CREATININE 1.08 mg/dL 0.7-1.3 UREA NITROGEN 17 mg/dL 9-25 GLUCOSE 90 mg/dL 72-99 SODIUM 140 meq/L 136-145 POTASSIUM 4.8 meq/L 3.5-5 CHLORIDE 108 meq/L H 98-107 CARBON DIOXIDE 27 meq/L 22-31 CALCIUM 9.2 mg/dL 8.4-10.4 PROTEIN 6.8 g/dL 6-8.6 ALBUMIN 4.1 g/dL 3.4-5 TOTAL BILIRUBIN 0.9 mg/dL 0.2-1.2 ALKALINE PHOSPHATASE 47 U/L 40-150 AST/SGOT 17 U/L 5-34 ALT/SGPT 12 U/L 8-40 EGFR (CKD-EPI 2020) 70 Nov 23, 2024 09:47 AM [place] [facility] CBC BLOO D Specimen Type: BLOOD No comment entered. Ordering Provider: NAJMA HANNAH Report Released Date/Time: Nov 23, 2024 09:47 AM Reporting Lab: [facility] [address] [place] [place] [address] Performing Lab: [facility] [place] [facility] [address] [place] [place] [address] WBC 6.8 10*3/uL 3.6-11.2 RBC 5.13 10*6/uL 4.10-5.70 HGB 15.4 g/dL 13.1-16.8 HCT 46.1 38.2-48.4 MCV 89.9 fL 80.0-100.0 MCH 30.0 pg 27.0-34.0 MCHC 33.4 g/dL 33.0-36.0 PLT 203 10*3/uL 150-400 MPV 10.3 fL 7.5-11.2 RDW 13.5 11.8-15.1 LYMPHOCYTES, AUTO % 26.8 MONOCYTES, AUTO % 9.6 NEUTROPHILS, AUTO % 61.3 EOSINOPHILS, AUTO % 1.6 BASOPHILS, AUTO % 0.4 LYMPHOCYTES, ABSOLUTE 1.81 10*3/uL 0.77- 4.50 MONOCYTES, ABSOLUTE 0.65 10*3/uL 0.19-0. 8 NEUTROPHILS, ABSOLUTE 4.14 10*3/uL 2.10- 8.00 EOSINOPHILS, ABSOLUTE 0.11 10*3/uL 0.00- 0.60 BASOPHILS, ABSOLUTE 0.03 10*3/uL 0.00-0. 20 IMMATURE GRANS, AUTO % 0.3 IMMATURE GRANS, AUTO ABS 0.02 10*3/uL 0. 00-0.05 Vital Signs: All taken on the encounter date This section contains inpatient and outpatient Vital Signs collected on the date of the Encounter. Date/Time Temperature Pulse Blood Pressure Respiratory Rate SP02 Pain Height Weight Body Mass Index Source Nov 29, 2024 09:38 AM 97.8 64 110/62 20 95 0 144 24 [facility] Social History: Smoking Status (Most current) and Tobacco Use (All prior to encounter date) This section includes the most current, and the historical, smoking and tobacco- related health factors from the NH facility where the Encounter took place. Current Smoking Status This section includes the most current smoking, or tobacco-related health factor, from the NH facility where the Encounter took place. Date/Time Current Smoking Status Comment John ity Nov 30, 2023 10:01 AM VA-TOBACCO NEVER USED [facility] [place] [facility] Tobacco Use History This section includes a history of the smoking, or tobacco-related health factors, that were collected on or before the date of the Encounter. The data comes from the NH facility where the Encounter took place. Date/Time Smoking Status/Tobacco Use Comment F acility Sep 02, 2022 08:30 AM VA-TOBACCO NEVER USED [facility] Jun 28, 2020 08:30 AM VA-TOBACCO NEVER USED [facility] Nov 15, 2019 02:52 PM CURRENT NON-TOBACCO USER-HX OF [facility] January 26, 2019 11:03 AM CURRENT NON-TOBACCO USER-HX OF [facility] January 26, 2019 11:03 AM VA-TOBACCO NEVER USED [facility] Jul 07, 2008 02:31 PM QUIT TOBACCO >7 YEARS AGO [facility] Mar 27, 2005 10:05 AM LIFETIME NON-TOBACCO USER [facility] Mar 28, 2004 09:44 AM LIFETIME NON-TOBACCO USER [facility] January 19, 2003 03:09 PM LIFETIME NON-TOBACCO USER [facility] Advance Directives: All historical and current Section Date Range: From patient's date of to the date document was created. This section includes ALL of a patient's completed or amended NH Advance and Rescinded Directives. The entries below indicate that a directive exists for the patient, but an actual copy is not included with this document. The data comes from all [facility]. Date Advance Directives Provider Source May 26, 2013 ADVANCE DIRECTIVE [facility] May 26, 2013 ADVANCE DIRECTIVE DISCUSSION [facility] Jun 06, 2011 ADVANCE DIRECTIVE DISCUSSION [facility] Aug 06, 2010 ADVANCE DIRECTIVE [facility] Radiology Reports: +/- 30 days of the [...] the Encounter. The data comes from all [place] treatment facilities. Date/Time Radiology Report Provider Source Dec 15, 2024 08:00 AM FEE BASE OUTSIDE S CREENING MAMMOGRAM: LOUANN GERBER S [id number] -[id number] M Exm Date: DEC 15, 2024@08:00 Req Phys: NAJMA HANNAH Loc: PB-MILADYS CVT PACT DELTA(PRO) (Re Img Loc: PB-MAMMOGRAM Service: Unknown (Case [id number] COMPLETE) FEE BASE OUTSIDE SCREENING MAMMOG(MINO Detailed) CPT:42792 Reason for Study: Mammogram Clinical History: Report Status: Electronically Filed Date Reported: DEC 23, 2024 Report: see impression text Impression: Impression: Exam was performed at an outside facility. Images and report have not been reviewed or read by NH staff. To review report, you will need to log into [facility] and select the correct patient to see the canned in document. Consult dated:[id number] BIRADS:1 [facility] VERIFIED BY: / *ELECTRONICALLY FILED* [facility] [place] Encounter Notes: All associated encounter notes This section contains the clinical notes associated to the Encounter. Date/Time Encounter Note(s) Provider Source Nov 29, 2024 09:42 AM PRIMARY CARE NURSI NG NOTE: LOCAL TITLE: PRIMARY CARE NURSING PROGRESS NOTE (TEXT) NURSING P STANDARD TITLE: PRIMARY CARE NURSING NOTE DATE OF NOTE: NOV 29, 2024@09:42 ENTRY DATE: NOV 29, 2024@09:42:23 AUTHOR: LELE HERNADEZ COSIGNER: URGENCY: STATUS: COMPLETED PRIMARY CARE NURSING PROGRESS NOTE (TEXT) NURSING PB Has ADDENDA Established Patient LOUANN GERBER SR IS A 79 YEAR OLD MALE BEING SEEN IN CLINIC NOV 29, 2024. = = REASON FOR VISIT: Here for annual follow up on chronic health conditions and to review lab. reports that for about the past year he has had intermittent swelling to his left breast. States it looks like a young woman . It may last days then go away for days to weeks then come back. He also would like to see an opthamologist in [place] for his eyes. Had cataract surgery about 3yrs ago and has not been able to see well since, states right eye miranda every time the wind blows and it feels like something in his eye. Surgeon that did cataracts told him nothing wrong and vision good. Are you receiving care any where other than the [facility]? Yes, Dr Diamond. [facility] HEALTH AND SURGICAL HISTORY: Does patient report using home oxygen? CURRENT ACTIVE MEDICATIONS FOR REVIEW: Allergies/ADRs (Tool #5) FACILITY ALLERGY/ADR -------- No Remote Allergy/ADR Data available for this patient [facility] RANOLAZINE Med. Reconciliation (Tool #1) INCLUDED IN THIS LIST: Alphabetical list of active outpatient prescriptions dispensed from this VA (local) and dispensed from another VA or DoD facility (remote) as well as inpatient orders (local pending and active), local clinic medications, locally documented non-VA medications, and local prescriptions that have or been discontinued in the past 90 days. Non-VA Meds Last Documented On: Data not found NOTE The display of VA prescriptions dispensed from another VA or DoD facility (remote) is limited to active outpatient prescription entries matched to National Drug File at the originating site and may not include some items such as investigational drugs, compounds, etc. NOT INCLUDED IN THIS LIST: Medications self-entered by the patient into personal health records (i.e. [facility] [employer]) are NOT included in this list. Non-VA medications documented outside this NH, remote inpatient orders (regardless of status) and remote clinic medications are NOT included in this list. The patient and provider must always discuss medications the patient is taking, regardless of where the medication was dispensed or obtained. OUTPT ASPIRIN 81MG EC TAB (Status = ) TAKE ONE TABLET BY MOUTH ONCE A DAY FOR HEART Rx# [id number] Last Released: 02/01/24 Qty/Days Supply: 120/90 Rx Expiration Date: 09/25/24 Refills Remainin OUTPT CHOLECALCIF 50MCG (D3-2,000UNIT) TAB (Status = Active) TAKE TWO TABLETS BY MOUTH ONCE A DAY FOR VITAMIN D SUPPLEMENT Rx# [id number] Last Released: 09/09/24 Qty/Days Supply: 200/90 Rx Expiration Date: 11/30/24 Refills Remainin Indication: FOR VITAMIN D DEFICIENCY OUTPT CLOPIDOGREL BISULFATE 75MG TAB (Status = Active) TAKE ONE TABLET BY MOUTH ONCE A DAY FOR ACUTE CORONARY SYNDROME Rx# [id number] Last Released: 10/10/24 Qty/Days Supply: 90/90 Rx Expiration Date: 08/03/25 Refills Remainin Indication: FOR ACUTE CORONARY SYNDROME OUTPT DM 10/GUAIFENESIN 100MG/5ML (ALC-F) LIQ (Status = ) TAKE 10 ML BY MOUTH THREE TIMES A DAY NEEDED FOR COUGH/CONGESTION (TAKE WITH 8 OUNCE GLASS OF WATER) Rx# [id number] Last Released: 08/02/24 Qty/Days Supply: 480/15 Rx Expiration Date: 09/01/24 Refills Remainin Indication: FOR COUGH/CONGESTION OUTPT ERYTHROMYCIN 0.5% OPH OINT (Status = Active) APPLY ONE-FOURTH INCH RIBBON TO AFFECTED EYE(S) EVERY EVENING FOR BACTERIAL INFECTION Rx# [id number] Last Released: 09/16/24 Qty/Days Supply: 10/20 Rx Expiration Date: 09/09/25 Refills Remainin Indication: FOR BACTERIAL INFECTION OUTPT ISOSORBIDE MONONITRATE 60MG SA TAB (Status = Active) TAKE ONE AND ONE-HALF TABLETS BY MOUTH ONCE A DAY FOR HEART AND TO PREVENT CHEST PAIN Rx# [id number] Last Released: 09/10/24 Qty/Days Supply: 135/90 Rx Expiration Date: 01/21/25 Refills Remainin OUTPT PANTOPRAZOLE NA 20MG EC TAB (Status = Discontinued) TAKE ONE TABLET BY MOUTH ONCE A DAY TAKE 30 MINUTES BEFORE MEAL(S) Rx# [id number] Last Released: 08/05/24 Qty/Days Supply: 6060 Rx Expiration Date: 10/01/24 Refills Remainin OUTPT PANTOPRAZOLE NA 20MG EC TAB (Status = ) TAKE ONE TABLET BY MOUTH ONCE A DAY TAKE 30 MINUTES BEFORE MEAL(S) Rx# [id number] Last Released: 09/15/24 Qty/Days Supply: 60/60 Rx Expiration Date: 11/06/24 Refills Remainin OUTPT PEG 400 0.4%/PROP GLYCOL 0.3% OPH SOLN (Status = Active) INSTILL 2 DROPS IN AFFECTED EYE(S) ONCE A DAY NEEDED FOR DRY EYE(S) Rx# [id number] Last Released: 12/25/23 Qty/Days Supply: 90 Rx Expiration Date: 12/21/24 Refills Remainin Indication: FOR DRY EYE(S) OUTPT PREDNISOLONE ACETATE 1% OPH SUSP (Status = Active) INSTILL 1 DROP IN RIGHT EYE TWICE A DAY FOR EYE INFLAMMATION Rx# [id number] Last Released: 09/16/24 Qty/Days Supply: 02/17 Rx Expiration Date: 09/09/25 Refills Remainin Indication: FOR EYE INFLAMMATION OUTPT RANOLAZINE 1000MG SA TAB (Status = Discontinued) TAKE ONE TABLET BY MOUTH EVERY 12 HOURS *SWALLOW WHOLE- DO NOT CRUSH,BREAK OR CHEW* Rx# [id number] Last Released: 09/10/24 Qty/Days Supply: 30 Rx Expiration Date: 04/12/25 Refills Remainin OUTPT RANOLAZINE 1000MG SA TAB (Status = Active) TAKE ONE TABLET BY MOUTH EVERY 12 HOURS . *SWALLOW WHOLE- DO NOT CRUSH,BREAK OR CHEW* Rx# [id number] Last Released: 09/22/24 Qty/Days Supply: 180/ Rx Expiration Date: 09/16/25 Refills Remainin OUTPT SACUBITRIL 49MG/VALSARTAN 51MG TAB (Status = Active) TAKE ONE-HALF TABLET BY MOUTH TWICE A DAY Rx# [id number] Last Released: 09/16/24 Qty/Days Supply: 90 Rx Expiration Date: 12/08/24 Refills Remainin OUTPT TRETINOIN 0.025% CREAM (Status = Active) APPLY A PEA SIZE AMOUNT TO FACE TO AFFECTED AREA(S) AT BEDTIME NEEDED FOR FLARES. CLEANSE SKIN IN THE MORNING FOLLOWING TREATMENT. Rx# [id number] Last Released: 08/19/24 Qty/Days Supply: 45/30 Rx Expiration Date: 08/12/25 Refills Remainin SUPPLIES PHARMACY TERMS AND POSSIBLE PATIENT ACTIONS INPT = NH inpatient order IV = NH intravenous medication OUTPT = NH outpatient prescription PHARMACY POSSIBLE PATIENT TERMS EXPLANATION ACTIONS -------- ---- ACTIVE A prescription that can be If you have refills, filled at the local NH pharmacy. you may request a refill of this prescription from your NH pharmacy. CLINIC A medication you received during If you have questions a visit to a VA clinic or about this medication emergency department. contact your VA healthcare team. DISCONTINUED A prescription your provider has Contact your VA stopped. It is no longer healthcare team if you available to be sent to you or need more of this picked up at the NH pharmacy medication. window. A prescription which is too old Contact your VA to fill. This does not refer to healthcare team if you the expiration date of the need more of this medication in the container. medication. NON-VA A medication that came from If this medication someplace other than a VA information is pharmacy. This may be a incorrect or out of prescription from either the VA date, please tell your or non VA providers that was VA healthcare team. filled outside the VA. Or, it may be an ohsc-wzv-mzhmgya (OTC), herbal, dietary supplements or sample medication. ON HOLD An active prescription that will Contact your VA not be filled until pharmacy pharmacy when you need resolves the issue. more of this medication. PARKED An active prescription that will Contact your VA not be filled until the patient pharmacy when you need requests it. this medication. PENDING This prescription order has been If you have been sent to the pharmacy for review instructed to start and is not ready yet. this medication now, contact your VA pharmacy. SUSPENDED An active prescription that is Contact your VA not scheduled to be filled yet. pharmacy if you need You should receive it before this medication now. you run out. Medication list reviewed with Patient IS PATIENT TAKING ANY OVER THE COUNTER MEDICATIONS, SUCH VITAMINS OR HERBAL SUPPLEMENTS, INCLUDING ANY MEDICATIONS PRESCRIBED BY ANOTHER PHYSICIAN? Yes Valium daily Does patient have any new allergies to report since last visit? VITALS: TEMPERATURE: 97.8 F [36.6 C] (11/29/2024 09:38) BP: 110/62 (11/29/2024 09:38) RESP: 20 (11/29/2024 09:38) PULSE: 64 (11/29/2024 09:38) HT: 65 in [165.1 cm] (11/30/2023 10:23) WT: 144 lb [65.32 kg] (11/29/2024 09:38) BMI: 24.0 PAIN ASSESSMENT: (Most Recent Pain Score in Vitals Package: 0 (11/29/2024 09:38) ) The patient indicated that they and their close contacts have not traveled outside of the [place] in the past 21 days. The patient reports the following symptoms: No symptoms present The patient is not immunocompromised. The patient does not report having a history of Multi Drug Resistant Organism (MDRO) within the last five years. The patient does not report having been exposed to measles, chickenpox, or zoster in last 30 days. STRESS: Thank you for your service. Now let us serve you. At the [facility], we strive to provide you with exceptional health care that improves your health and well-being. Are you feeling sad, empty, or depressed? No Do you need to talk about things in your life that worry you or cause you stress? No Do you need to talk about personal problems, family problems, alcohol use, drug use, or mental or emotional illness? No SUICIDE SCREENING: The patient was asked, Over the past two weeks, how often have you been bothered by thoughts that you would be better off or of hurting yourself in some way? Not At All SPIRITUAL ASSESSMENT: Are there congregation practices or spiritual concerns you want the community association manager, your physician, and other health care team members to immediately know about? Patient advised to call the clinic for any concerns, questions, or symptoms. Patient and/or caregiver verbalized understanding of plan of care. /linda/ LELE HERNADEZ LPN Signed: 11/29/2024 09:57 11/29/2024 ADDENDUM STATUS: COMPLETED Frail/Elderly Screen: ADL Screen - Guy Index of [place] in Activities of Daily Living Bathing: (3 Points) Receives no assistance (gets in and out of tub by self, if tub is usual means of bathing) Dressing: (3 Points) Gets clothes and gets completely dressed without assistance. Toileting: (3 Points) Goes to toilet room , cleans self, and arranges clothes without assistance (may use object for support such as cane, walker, or wheelchair, and may manage own night bedpan or commode, emptying same next morning) Transferring: (3 Points) Moves in and out of bed and in and out of chair without assistance (may be using object for support, such as cane or walker) Continence: (3 Points) Controls urination and bowel movement completely by self Feeding: (3 Points) Feeds self without assistance Total Score: 18 Points 18 = High (patient independent) 6 = Low (patient very dependent) IADL Screen - [place] Instrumental Activities of Daily Living Scale Ability to use telephone: (1 point) Operates Telephone on own initiative; looks up and dials numbers. Shopping: (1 point) Takes care of all shopping needs independently. Food preparation: (1 point) Plans, prepares, and serves adequate meals independently. Housekeeping: (1 point) Maintains house alone with occasional assistance (heavy work). Laundry: (1 point) Does personal laundry completely. Mode of transportation: (1 point) Travels independently on public transportation or drives own car. Responsibility for own medications: (1 point) Is responsible for taking medications in correct dosages at correct times. Ability to handle finances: (1 point) Manages financial matters independently (budgets, writes checks, pays rent and bills, goes to bank); collects and keeps track of income. Total score: 8 points 8 = High function, independent 0 = Low function, dependent Falls Screen: No falls within the past 12 months. Incontinence Screen: No incontinence. Suicide Screen - V: C-SSRS Screening [place] Suicide Severity Rating Scale (C-SSRS) screener 1. Over the past month, have you wished you were or wished you could go to sleep and not wake up? No 2. Over the past month, have you had any actual thoughts of killing yourself? No 3. Over the past month, have you been thinking about how you might do this? Response not required due to responses to other questions. 4. Over the past month, have you had these thoughts and had some intention of acting on them? Response not required due to responses to other questions. 5. Over the past month, have you started to work out or worked out the details of how to kill yourself? Response not required due to responses to other questions. 6. If yes, at any time in the past month did you intend to carry out this plan? Response not required due to responses to other questions. 7. In your lifetime, have you ever done anything, started to do anything, or prepared to do anything to end your life (for example, collected pills, obtained a gun, gave away valuables, went to the roof but didn't jump)? No 8. If YES, was this within the past 3 months? Response not required due to responses to other questions. FALL RISK OP PB: MECHE FALL RISK ASSESSMENT Have you experienced any falls within the last 12 months: 0 = No Secondary Dx: 0 = No Ambulatory Aid: 0 = No Gait/Transferrin = Normal/Bedrest/Immobile Mental status: 0 = Oriented to own ability Medications: 5 = High risk meds TOTAL SCORE: 5 Score <30 - patient IS NOT at risk for falls. No action at this time. Reassess annually or if needed. Fall Documentation No - Patient did not experience a fall within the last year Sexual Orientation - CP,L,N,P,PH,PS,S,U: The patient thinks of their sexual orientation as: Straight or Heterosexual COVID-19 Immunization - L,N,P,PH,U: Refused Moderna Monovalent COVID-19 vaccine Immunization: COVID-19 (MODERNA), MRNA, LNP-S, PF, 50 MCG/0.5 ML (AGES 12+ YEARS) Refusal Reason: PATIENT DECISION Patient refuses all immunization(s) in the COVID-19 group Date Documented: 11/29/24 09:59 Alcohol Use Screen (AUDIT-C) - V: Alcohol Screen: SCREEN FOR ALCOHOL (AUDIT-C) An alcohol screening test (AUDIT-C) was negative (score=0). 1. How often did you have a drink containing alcohol in the past year? Consider a drink to be a 12 ounce can or bottle of regular beer, 8 ounces of malt liquor, a 5 ounce glass of table wine, or a 1.5 ounce shot of liquor (like scotch, gin, or vodka). Never 2. How many drinks containing alcohol did you have on a typical day when you were drinking in the past year? Response not required due to responses to other questions. 3. How often did you have six or more drinks on one occasion in the past year? Response not required due to responses to other questions. Depression Screening - V: Perform PHQ-2 A PHQ-2 screen was performed. The score was 0 which is a negative screen for depression. Over the past two weeks, how often have you been bothered by the following problems? 1. Little interest or pleasure in doing things Not at all 2. Feeling down, depressed, or hopeless Not at all Influenza Immunization - L,N,P,PH,U: Deferral / Refusal The patient declines to receive the recommended dose of seasonal influenza vaccine. Immunization: INFLUENZA, UNSPECIFIED FORMULATION Refusal Reason: PATIENT DECISION Patient refuses all immunization(s) in the FLU group Date Documented: 11/29/24 10:00 Pain Assessment: - PAIN ASSESSMENT: .. Patient reports no pain at this visit. Pain Score = 0. Patient's self identified pain goal: 0 Weight Control/Nutrition Counseling: * The patient received the following counseling at this encounter: Patient was encouraged to restrict fat, especially saturated fats, in a normal diet. Benefit of a diet high in fiber was discussed. Patient was advised to include 5 or more servings of fruit and vegetables and six or more servings of grains as a well balanced diet. Herpes Zoster (Shingles) Vaccine - L,N,P,PH,U: The patient declines to receive the recommended dose of zoster (shingles) vaccine. Immunization: ZOSTER RECOMBINANT Refusal Reason: PATIENT DECISION Patient refuses all immunization(s) in the ZOSTER group Date Documented: 11/29/24 10:00 Patient/Nurse Interview: * * Patient states that questions were answered in a way that was easily understood. /linda/ LELE HERNADEZ LPN Signed: 11/29/2024 10:01 LELE HERNADEZ [facility]
--- OUTSIDE RECORDS SUMMARY | 2024-11-29 04:16 | XMS_ITS | Encounter Summary ---
Author Name [facility] [place] Organization [facility] [place] Address [address] [place] [address] Care Team Providers Care Nursing Home Admissions Director Name Role Phone NAJMA HANNAH Primary Care [...] PART B Jun 21, 2011 PART B [id number] RENEGAR,W AYNE PATIENT MEDICARE (WNR) MEDICARE (M) PART A Jun 21, 2011 PART A [id number] RENEGAR,W AYNE PATIENT MEDICARE (WNR) MEDICARE (M) PART A Jun 21, 2011 PART A [id number] RENEGAR,W AYNE PATIENT MEDICARE (WNR) MEDICARE (M) PART B Jun 21, 2011 PART B [id number] RENEGAR,W AYNE PATIENT Selected Encounter This section includes the information on record at [place] for the Encounter. Date/Time Encounter Type Encounter Description Reason Provider Source Nov 29, 2024 09:16 AM SYNCH AUDIO-VIDEO EST HI 40 PRIMARY CARE/MEDICINE ICD-10-CM Z00.01 Encounter for general adult medical exam w abnormal findings NAJMA HANNAH Encounter Template Text not used by [place] Assessments - Encounter Diagnoses This section includes the primary and secondary diagnoses documented for the Encounter. 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 This section includes future appointments and future orders which are active, pending or scheduled. Future Appointments This section includes appointments that were scheduled to occur 6 months from the date of the Encounter, up to a maximum of 20 appointments. The data comes from all [place] treatment facilities. Appointment Date/Time Appointment Type Appointme nt Facility Name Dec 15, 2024 09:45 AM AMBULATORY - NONE [place] [facility] Dec 19, 2024 02:30 PM AMBULATORY - MEDICINE [place] [facility] Jan 03, 2025 09:30 AM AMBULATORY - MEDICINE [place] [facility] Jan 05, 2025 12:15 PM AMBULATORY - MEDICINE [place] [facility] Jan 11, 2025 03:20 PM AMBULATORY - MEDICINE [place] [facility] Jan 16, 2025 08:15 AM AMBULATORY - MEDICINE [place] [facility] January 30, 2025 01:00 PM AMBULATORY - MEDICINE [place] [facility] Mar 21, 2025 02:00 PM AMBULATORY - MEDICINE [facility] Mar 28, 2025 10:00 AM AMBULATORY - MEDICINE [place] [facility] Active, Pending, and Scheduled Orders This section includes a listing of several types of active, pending, and scheduled orders, including clinic medications orders, diagnostic test orders, procedure orders and consult orders; where the start date of the order is 45 days before the date of the Encounter or 45 days after the date of theEncounter. The data comes from all [facility] facilities. Test Date/Time Test Type Test Details Facility Name Nov 29, 2024 12:00 AM Laboratory - Chemi stry Order CORTISOL (PB-MA) GOLD/RED SST SERUM [facility] Nov 29, 2024 12:00 AM Laboratory - Chemi stry Order ACTH LAVENDER BLOOD PLASMA [facility] Nov 29, 2024 12:00 AM Laboratory - Chemi stry Order TSH (MA-PB) GOLD/RED SST SERUM [facility] Nov 29, 2024 12:00 AM Laboratory - Chemi stry Order FREE T4 (MA-PB) GOLD/RED SST SERUM [facility] Nov 29, 2024 12:00 AM Laboratory - Chemi stry Order TOTAL T3 (STL-PB) GREEN LI-HEP PLASMA [facility] Nov 29, 2024 12:00 AM Laboratory - Chemi stry Order FSH (PB) GOLD/RED SST SERUM [facility] Nov 29, 2024 12:00 AM Laboratory - Chemi stry Order LUTEINIZING HORMONE GOLD/RED SST SERUM [facility] Nov 29, 2024 12:00 AM Laboratory - Chemi stry Order TESTOSTERONE, TOTAL (PB-MA) GOLD/RED SST SERUM [facility] Nov 29, 2024 12:00 AM Laboratory - Chemi stry Order PROLACTIN (MA-PB-EV) GOLD/RED SST SERUM [facility] Nov 29, 2024 12:00 AM Laboratory - Chemi stry Order UREA NITROGEN GREEN LI/HEP BLD/PLAS PLASMA [facility] Nov 29, 2024 12:00 AM Laboratory - Chemi stry Order CREATININE(EGFR) GREEN LI/HEP BLD/PLAS PLASMA [facility] Nov 29, 2024 12:49 PM Consult Order COMMUNITY CARE-ENDOCRINOLOGY 657A4 Cons [employer] [facility] Dec 09, 2024 05:31 PM Consult Order COMMUNITY CARE-DERMATOLOGY 657A4 Cons [employer] [place] [facility] Lab Results: +/- 30 days of the encounter This section includes the Chemistry and Hematology Lab Results on record with [facility] for the patient. Radiology Reports and Pathology Reports are provided separately, in subsequent sections. Lab Results This section contains the Chemistry/Hematology Results that were resulted 30 days before or 30 daysafter the date of the Encounter. Date/Time Source Result Type Result - Unit Interpretation Reference Range Specimen Type Comment Nov 23, 2024 09:47 AM [place] [facility] B12 SERUM Specimen Type: SERUM No comment entered. Ordering Provider: NAJMA HANNAH Report Released Date/Time: Nov 23, 2024 09:47 AM Reporting Lab: [place] [facility] [address] [place] [address] Performing Lab: [place] [facility] [address] [place] [address] B12 297 pg/mL [id number] Nov 23, 2024 09:47 AM [place] [facility] HGA1C BLOO D Specimen Type: BLOOD No comment entered. Ordering Provider: NAJMA HANNAH Report Released Date/Time: Nov 23, 2024 09:47 AM Reporting Lab: [place] [facility] [address] [place] [address] Performing Lab: [place] [facility] [address] [place] [address] HGA1C 5.4 4.0-6.0 Nov 23, 2024 09:47 AM [place] [facility] FOLATE (PB) SERUM Specimen Ty pe: SERUM No comment entered. Ordering Provider: NAJMA HANNAH Report Released Date/Time: Nov 23, 2024 09:47 AM Reporting Lab: [place] [facility] [address] [place] [address] Performing Lab: [place] [facility] [address] [place] [address] FOLATE (PB) 6.8 ng/mL L 7-20 Nov 23, 2024 09:47 AM [place] [facility] CHOLESTEROL PANEL (PB) PLASMA Specimen Type: P LASMA No comment entered. Ordering Provider: NAJMA HANNAH Report Released Date/Time: Nov 23, 2024 09:47 AM Reporting Lab: [place] [facility] [address] [place] [address] Performing Lab: [place] [facility] [address] [place] [facility] CHOLESTEROL 185 mg/dL 0-200 TRIGLYCERIDE 76 mg/dL 0-150 CALCULATED LDL 108.4 mg/dL HDL(New) 61.4 mg/dL H >40 HDL % OF TOTAL CHOLESTEROL (PB) 33.2 >25 Nov 23, 2024 09:47 AM [place] [facility] VITAMIN D, 25-HYDROXY SERUM Specimen Type: SE RUM No comment entered. Ordering Provider: NAJMA HANNAH Report Released Date/Time: Nov 23, 2024 09:47 AM Reporting Lab: [place] [facility] [address] [place] [facility] Performing Lab: [place] [facility] [address] [place] [address] VITAMIN D, 25-HYDROXY 44.7 ng/mL 30-96 Nov 23, 2024 09:47 AM [facility] TSH (MA-PB) SERUM Specimen Ty pe: SERUM No comment entered. Ordering Provider: NAJMA HANNAH Report Released Date/Time: Nov 23, 2024 09:47 AM Reporting Lab: [place] [facility] [address] [place] [facility] Performing Lab: [place] [facility] [address] [place] [facility] TSH 1.592 u[IU]/mL Nov 23, 2024 09:47 AM [facility] COMPREHENSIVE METABOLIC PANEL PLASMA Specimen Type: PLASMA No comment entered. Ordering Provider: NAJMA HANNAH Report Released Date/Time: Nov 23, 2024 09:47 AM Reporting Lab: [place] [facility] [address] [place] [facility] Performing Lab: [place] [facility] [address] [place] [id number] CREATININE 1.08 mg/dL 0.7-1.3 UREA NITROGEN 17 [...] 2020) 70 Nov 23, 2024 09:47 AM [facility] CBC BLOO D Specimen Type: BLOOD No comment entered. Ordering Provider: NAJMA HANNAH Report Released Date/Time: Nov 23, 2024 09:47 AM Reporting Lab: [facility] [address] [facility] [address] Performing Lab: [facility] [address] [facility] [address] WBC 6.8 10*3/uL 3.6-11.2 RBC 5.13 10*6/uL [...] 64 110/62 20 95 0 144 24 [facility] Social History: Smoking Status (Most current) and Tobacco Use (All prior to encounter date) This section includes the most current, and the historical, smoking and tobacco- related health factors from the [place] facility where the Encounter took place. Current Smoking Status This section includes the most current smoking, or tobacco-related health factor, from the [place] facility where the Encounter took place. Date/Time Current Smoking Status Comment Facil ity Nov 30, 2023 10:01 AM VA-TOBACCO NEVER USED [facility] Tobacco Use History This section includes a history of the smoking, or tobacco-related health factors, that were collected on or before the date of the Encounter. The data comes from the [place] facility where the Encounter took place. Date/Time Smoking Status/Tobacco Use Comment F acility Sep 02, 2022 08:30 AM VA-TOBACCO NEVER USED [facility] Jun 28, 2020 08:30 AM VA-TOBACCO NEVER USED [facility] Nov 15, 2019 02:52 PM CURRENT NON-TOBACCO USER-HX OF U [facility] January 26, 2019 11:03 AM CURRENT NON-TOBACCO USER-HX OF [facility] January 26, 2019 11:03 AM VA-TOBACCO NEVER USED [facility] Jul 07, 2008 02:31 PM QUIT TOBACCO >7 YEARS AGO [facility] Mar 27, 2005 10:05 AM LIFETIME NON-TOBACCO USER [facility] Mar 28, 2004 09:44 AM LIFETIME NON-TOBACCO USER [facility] January 19, 2003 03:09 PM LIFETIME NON-TOBACCO USER [facility] Advance Directives: All historical and current Section Date Range: From patient's date of to the date document was created. This section includes ALL of a patient's completed or amended [place] Advance and Rescinded Directives. The entries below indicate that a directive exists for the patient, but an actual copy is not included with this document. The data comes from all [place] facilities. Date Advance Directives Provider Source May 26, 2013 ADVANCE DIRECTIVE GERARDO FLORES NICOLE JACOBS [facility] May 26, 2013 ADVANCE DIRECTIVE DISCUSSION REESE DICKINSON ACADEN MAHNAZNATA [facility] Jun 06, 2011 ADVANCE DIRECTIVE DISCUSSION REESE DICKINSON NICOLE JOYANATA [facility] Aug 06, 2010 ADVANCE DIRECTIVE REESE DICKINSON EMILIE YE [facility] Radiology Reports: +/- 30 days of the [...] the Encounter. The data comes from all [place] treatment facilities. Date/Time Radiology Report Provider Source Dec 15, 2024 08:00 AM FEE BASE OUTSIDE S CREENING MAMMOGRAM: LOUANN GERBER [id number] -[id number] M Exm Date: DEC 15, 2024@08:00 Req Phys: NAJMA HANNAH Pat Loc: PB-MILADYS CVT PACT DELTA(PRO) (Re Img Loc: PB-MAMMOGRAM Service: Unknown (Case [id number] COMPLETE) FEE BASE OUTSIDE SCREENING MAMMOG(MINO Detailed) CPT:76020 Reason for Study: Mammogram Clinical History: Report Status: Electronically Filed Date Reported: DEC 23, 2024 Report: see impression text Impression: Impression: Exam was performed at an outside facility. Images and report have not been reviewed or read by [place] staff. To review report, you will need to log into [facility] and select the correct patient to see the canned in document. Consult dated:[id number] BIRADS:1 [facility] VERIFIED BY: / *ELECTRONICALLY FILED* NICOLE PALOMINO [facility] Encounter Notes: All associated encounter notes This section contains the clinical notes associated to the Encounter. Date/Time Encounter Note(s) Provider Source Dec 27, 2024 02:37 PM ADDENDUM: LOCAL TITLE: Addendum STANDARD TITLE: ADDENDUM DATE OF NOTE: DEC 27, 2024@14:37:19 ENTRY DATE: DEC 27, 2024@14:37:19 AUTHOR: LELE HERNADEZ COSIGNER: URGENCY: STATUS: COMPLETED Received copy of stress test performed at [facility] on 11/17/2024 Indcication and History: Chest pain. 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 2) Normal left ventricular systolic function, with LVEF 65% 3) Previous study from 2021 reported similar findings. Copy of report sent to scanning. /linda/ LELE HERNADEZ LPN Signed: 12/27/2024 14:41 Receipt Acknowledged By: 12/30/2024 11:06 /es/ NAJMA HANNAH MD --- Original Document --- 11/29/24 PRIMARY CARE CLINIC PROGRESS NOTE PB: [place] is presenting to the clinic today for his/her Telehealth appointment as scheduled. [place] was assured that the Telehealth visit is a private, confidential clinical encounter and will not be recorded. The Telehealth process, procedures and expectations were explained to the patient, allowing time to voice any concerns. [place] voiced understanding and consented to the Clinic visit. The visit proceeded without difficulty. DATE & TIME:Nov@09:47 CHIEF COMPLAINT: annual exam, review labs HISTORY OF PRESENT ILLNESS: needs [facility] , had cataracts right surgery left breast enlarged on and off 1 to 2 weeks, and resolves, and comes back again, not now no alcohol no tobacco Dr Diamond give patient valium one a day PAST MEDICAL HISTORY: 1) Hypertension (SNOMED CT 97922479) 2) HLD - Hyperlipidemia (SNOMED CT 50474388) 3) Postsurgical Aortocoronary Bypass Status (ICD-9-CM V45.81) 4) Coronary heart disease (SNOMED CT 41390706) 5) Coronary sclerosis (SNOMED CT 72745329) 6) Erectile dysfunction (SNOMED CT 853466457) 7) Adenoma of pituitary 8) Chronic post-traumatic stress disorder 9) Actinic Keratosis ([facility] 403260582) 10) Aortocoronary Bypass Graft Present (SCT 868094341) 11) Degeneration of Cervical Intervertebral Disc (SCT 46274597) 12) Degenerative Joint Disease of Shoulder Region (SCT 06626455) 13) Colonoscopy normal 14) Exposure to Agent Wood 15) Exposure to potentially hazardous substance 16) History of cataract surgery 17) Carotid artery disease 18) Pneumonia 19) Posttraumatic stress disorder 20) Cataract (SCT 76493506) 21) Upper abdominal pain 22) Early satiety 23) Obstructive Sleep Apnea of Adult ([facility] [id number]) 24) Bradycardia 25) Bilateral tinnitus SOCIAL HISTORY: lives with Tobacco: none Alcohol: none never smoked marijuna a Allergies: RANOLAZINE MEDIACTIONS: Active Outpatient Medications (including Supplies): Active Outpatient Medications Status 1) CHOLECALCIF 50MCG (D3-2,000UNIT) TAB TAKE TWO TABLETS BY ACTIVE MOUTH ONCE A DAY FOR VITAMIN D SUPPLEMENT Indication: FOR VITAMIN D DEFICIENCY 2) CLOPIDOGREL BISULFATE 75MG TAB TAKE ONE TABLET BY MOUTH ONCE ACTIVE A DAY Indication: FOR ACUTE CORONARY SYNDROME 3) ERYTHROMYCIN 0.5% OPH OINT APPLY ONE-FOURTH INCH RIBBON TO ACTIVE AFFECTED EYE(S) EVERY EVENING Indication: FOR BACTERIAL INFECTION 4) ISOSORBIDE MONONITRATE 60MG SA TAB TAKE ONE AND ONE-HALF ACTIVE TABLETS BY MOUTH ONCE A DAY FOR HEART AND TO PREVENT CHEST PAIN 5) PEG 400 0.4%/PROP GLYCOL 0.3% OPH SOLN INSTILL 2 DROPS IN ACTIVE AFFECTED EYE(S) ONCE A DAY NEEDED Indication: FOR DRY EYE(S) 6) PREDNISOLONE ACETATE 1% OPH SUSP INSTILL 1 DROP IN RIGHT EYE ACTIVE TWICE A DAY Indication: FOR EYE INFLAMMATION 7) RANOLAZINE 1000MG SA TAB TAKE ONE TABLET BY MOUTH EVERY 12 ACTIVE HOURS . *SWALLOW WHOLE- DO NOT CRUSH,BREAK OR CHEW* 8) SACUBITRIL 49MG/VALSARTAN 51MG TAB TAKE ONE-HALF TABLET BY ACTIVE MOUTH TWICE A DAY 9) TRETINOIN 0.025% CREAM APPLY A PEA SIZE AMOUNT TO FACE TO ACTIVE AFFECTED AREA(S) AT BEDTIME NEEDED FOR FLARES. CLEANSE SKIN IN THE MORNING FOLLOWING TREATMENT. REVIEW OF SYSTEMS: Review of Systems Systemic: Denies fatique, fever, chills, or weight loss CV: Denies chest pain, palpitations Pulm: Denies hemoptysis, wheezing GI: Denies constipation, bloody stools. Musculoskeletal: Denies swelling Neuro: Denies slurred speech Skin: Denies abnormal lesions, denies any new rashes PSYCH: Denies SI/HI PHYSICAL ASSESSMENT: VITAL SIGNS Pulse: 64 (11/29/2024 09:38) Blood Pressure: 110/62 (11/29/2024 09:38) Respiratory Rate: 20 (11/29/2024 09:38) Temperature: 97.8 F [36.6 C] (11/29/2024 09:38) Weight: 144 lb [65.32 kg] (11/29/2024 09:38) Height: 65 in [165.1 cm] (11/30/2023 10:23) Pain: 0 (11/29/2024 09:38) GENERAL: Appears in no acute distress. HEENT: Conjunctiva are clear without exudate or gross hemorrhage. Sclera nonicteric. EOM are intact. right ear canal with cerumen impaction and Tympanic membrane is not visualized, left canal is clear and without acute changes. Oropharynx is normal in appearance and without swelling or exudate NECK: appearance is normal and without gross masses CARDIAC: Regular rate and rhythm. No JVD RESPIRATORY: CTA bilaterally no rhonchi wheezing or rails. Nonlabored respirations GI: Abdomen normal bowel sounds MUSCULOSKELETAL: No joint effusions, moving extremiteis without difficulty SKIN: Appropriate color for ethnicity. NEUROLOGICAL: The is alert and oriented without distress. Gait is at baseline PSYCHOLOGICAL: Appropriate mood and affect. No suicidal or homicidal ideation. A/P: ASSESSMENT and PLAN 1) Hypertension -stable 2) HLD - Hyperlipidemia 3) Postsurgical Aortocoronary Bypass Status -asymotomatic 7) Adenoma of pituitary hx, saw endocrine 2016, and now with decreased right eye vision affter cataract sx, and ophtho said it is not surgery related, will fu and get MRI brain, and refer to endocrine -ordered a few endocrine labs, to get started 12) Degenerative Joint Disease of Shoulder Region - tear in it, finished physical therapy, and improving since marry started doing light weights at [facility] himself 14) Exposure to Agent Wood 15) Exposure to potentially hazardous substance 16) History of cataract surgery 20) [facility]aract [facility] because still ahving problems with right eye, decreased vision, feels like something is in it has seen Dr Melvin multiple times for it, and not improved, so wants to go to [facility], after cataract surgery low folic acid - will send supplementation left gynecomastia -bilateral mammogram, and ultrasound of left breast patient AWARE OF EARLY 8am CORTISOL, with additional endocrine labs ordered -labs reviewed Health Maintenance: Discussed preventative health to include diet and exercise including immunizations. Stable. Discussed medications with patient; med rec completed. Continue current regimen as prescribed by PCP and specialists. RTC as needed if developing any new or worsening symptoms. Please notify PACT with medication changes or for orders coordination as needed if seen by a specialist in the future. Discussed with patient that in the event of community imaging / testing being ordered in the future, once the imaging / testing has been completed, please notify PACT of completion at outside facility if not called with results within 1 week by a [facility] PACT member; this is due to intermittent lapses in notification of imaging completion within CPR[facility]. -Follow-up with me every November for annual labs and annual exam -Follow-up with me as needed. All questions answered; agrees to plan of care. Follow up as listed above, annually, and as needed. Keep all appointments. Medications Reconciled. Total time spent in medical discussion with patient was 43 minutes Total time spent on this visit was 49 m total time spentinutes /es/ NAJMA HANNAH MD Signed: 11/29/2024 13:05 [facility] Nov 29, 2024 09:47 AM PRIMARY CARE PROGR ESS NOTE: LOCAL TITLE: PRIMARY CARE CLINIC PROGRESS NOTE PB STANDARD TITLE: PRIMARY CARE PROGRESS NOTE DATE OF NOTE: NOV 29, 2024@09:47 ENTRY DATE: NOV 29, 2024@09:47:36 AUTHOR: NAJMA HANNAH COSIGNER: URGENCY: STATUS: COMPLETED PRIMARY CARE CLINIC PROGRESS NOTE PB Has ADDENDA [place] is presenting to the clinic today for his/her Telehealth appointment as scheduled. [place] was assured that the Telehealth visit is a private, confidential clinical encounter and will not be recorded. The Telehealth process, procedures and expectations were explained to the patient, allowing [place] time to voice any concerns. [place] voiced understanding and consented to the Clinic visit. The visit proceeded without difficulty. DATE & TIME:Nov@09:47 CHIEF COMPLAINT: annual exam, review labs HISTORY OF PRESENT ILLNESS: needs optho [place] , had cataracts right surgery left breast enlarged on and off 1 to 2 weeks, and resolves, and comes back again, not now no alcohol no tobacco Dr Diamond give patient valium one a day PAST MEDICAL HISTORY: 1) Hypertension (SNOMED CT 04750356) 2) HLD - Hyperlipidemia (SNOMED CT 01426082) 3) Postsurgical Aortocoronary Bypass Status (ICD-9-CM V45.81) 4) Coronary heart disease (SNOMED CT 62376307) 5) Coronary sclerosis (SNOMED CT 00230854) 6) Erectile dysfunction (SNOMED CT 389841938) 7) Adenoma of pituitary 8) Chronic post-traumatic stress disorder 9) Actinic Keratosis (SCT 767540996) 10) Aortocoronary Bypass Graft Present (SCT 180870663) 11) Degeneration of Cervical Intervertebral Disc (SCT 53586089) 12) Degenerative Joint Disease of Shoulder Region (SCT 44733093) 13) Colonoscopy normal 14) Exposure to Agent Wood 15) Exposure to potentially hazardous substance 16) History of cataract surgery 17) Carotid artery disease 18) Pneumonia 19) Posttraumatic stress disorder 20) Cataract (SCT 89420557) 21) Upper abdominal pain 22) Early satiety 23) Obstructive Sleep Apnea of Adult (SCT 8175820255543) 24) Bradycardia 25) Bilateral tinnitus SOCIAL HISTORY: lives with Tobacco: none Alcohol: none never smoked marijuna a Allergies: RANOLAZINE MEDIACTIONS: Active Outpatient Medications (including Supplies): Active Outpatient Medications Status 1) CHOLECALCIF 50MCG (D3-2,000UNIT) TAB TAKE TWO TABLETS BY ACTIVE MOUTH ONCE A DAY FOR VITAMIN D SUPPLEMENT Indication: FOR VITAMIN D DEFICIENCY 2) CLOPIDOGREL BISULFATE 75MG TAB TAKE ONE TABLET BY MOUTH ONCE ACTIVE A DAY Indication: FOR ACUTE CORONARY SYNDROME 3) ERYTHROMYCIN 0.5% OPH OINT APPLY ONE-FOURTH INCH RIBBON TO ACTIVE AFFECTED EYE(S) EVERY EVENING Indication: FOR BACTERIAL INFECTION 4) ISOSORBIDE MONONITRATE 60MG SA TAB TAKE ONE AND ONE-HALF ACTIVE TABLETS BY MOUTH ONCE A DAY FOR HEART AND TO PREVENT CHEST PAIN 5) PEG 400 0.4%/PROP GLYCOL 0.3% OPH SOLN INSTILL 2 DROPS IN ACTIVE AFFECTED EYE(S) ONCE A DAY NEEDED Indication: FOR DRY EYE(S) 6) PREDNISOLONE ACETATE 1% OPH SUSP INSTILL 1 DROP IN RIGHT EYE ACTIVE TWICE A DAY Indication: FOR EYE INFLAMMATION 7) RANOLAZINE 1000MG SA TAB TAKE ONE TABLET BY MOUTH EVERY 12 ACTIVE HOURS . *SWALLOW WHOLE- DO NOT CRUSH,BREAK OR CHEW* 8) SACUBITRIL 49MG/VALSARTAN 51MG TAB TAKE ONE-HALF TABLET BY ACTIVE MOUTH TWICE A DAY 9) TRETINOIN 0.025% CREAM APPLY A PEA SIZE AMOUNT TO FACE TO ACTIVE AFFECTED AREA(S) AT BEDTIME NEEDED FOR FLARES. CLEANSE SKIN IN THE MORNING FOLLOWING TREATMENT. REVIEW OF SYSTEMS: Review of Systems Systemic: Denies fatique, fever, chills, or weight loss CV: Denies chest pain, palpitations Pulm: Denies hemoptysis, wheezing GI: Denies constipation, bloody stools. Musculoskeletal: Denies swelling Neuro: Denies slurred speech Skin: Denies abnormal lesions, denies any new rashes PSYCH: Denies SI/HI PHYSICAL ASSESSMENT: VITAL SIGNS Pulse: 64 (11/29/2024 09:38) Blood Pressure: 110/62 (11/29/2024 09:38) Respiratory Rate: 20 (11/29/2024 09:38) Temperature: 97.8 F [36.6 C] (11/29/2024 09:38) Weight: 144 lb [65.32 kg] (11/29/2024 09:38) Height: 65 in [165.1 cm] (11/30/2023 10:23) Pain: 0 (11/29/2024 09:38) GENERAL: Appears in no acute distress. HEENT: Conjunctiva are clear without exudate or gross hemorrhage. Sclera nonicteric. EOM are intact. right ear canal with cerumen impaction and Tympanic membrane is not visualized, left canal is clear and without acute changes. Oropharynx is normal in appearance and without swelling or exudate NECK: appearance is normal and without gross masses CARDIAC: Regular rate and rhythm. No JVD RESPIRATORY: CTA bilaterally no rhonchi wheezing or rails. Nonlabored respirations GI: Abdomen normal bowel sounds MUSCULOSKELETAL: No joint effusions, moving extremiteis without difficulty SKIN: Appropriate color for ethnicity. NEUROLOGICAL: The [place] is alert and oriented without distress. Gait is at baseline PSYCHOLOGICAL: Appropriate mood and affect. No suicidal or homicidal ideation. A/P: ASSESSMENT and PLAN 1) Hypertension -stable 2) HLD - Hyperlipidemia 3) Postsurgical Aortocoronary Bypass Status -asymotomatic 7) Adenoma of pituitary hx, saw endocrine 2015, and now with decreased right eye vision affter cataract sx, and ophtho said it is not surgery related, will fu and get MRI brain, and refer to endocrine -ordered a few endocrine labs, to get started 12) Degenerative Joint Disease of Shoulder Region - tear in it, finished physical therapy, and improving since marry started doing light weights at [facility] himself 14) Exposure to Agent Wood 15) Exposure to potentially hazardous substance 16) History of cataract surgery 20) Cataract - wants to see other ophtho [place] , because still ahving problems with right eye, decreased vision, feels like something is in it has seen Dr Melvin multiple times for it, and not improved, so wants to go to [facility], after cataract surgery low folic acid - will send supplementation left gynecomastia -bilateral mammogram, and ultrasound of left breast patient AWARE OF EARLY 8am CORTISOL, with additional endocrine labs ordered -labs reviewed Health Maintenance: Discussed preventative health to include diet and exercise including immunizations. Stable. Discussed medications with patient; med rec completed. Continue current regimen as prescribed by PCP and specialists. RTC as needed if developing any new or worsening symptoms. Please notify PACT with medication changes or for orders coordination as needed if seen by a specialist in the future. Discussed with patient that in the event of community imaging / testing being ordered in the future, once the imaging / testing has been completed, please notify PACT of completion at outside facility if not called with results within 1 week by a [facility]; this is due to intermittent lapses in notification of imaging completion within [facility]. -Follow-up with me every November for annual labs and annual exam -Follow-up with me as needed. All questions answered; agrees to plan of care. Follow up as listed above, annually, and as needed. Keep all appointments. Medications Reconciled. Total time spent in medical discussion with patient was 43 minutes Total time spent on this visit was 49 m total time spentinutes /linda/ NAJMA HANNAH MD Signed: 11/29/2024 13:05 12/27/2024 ADDENDUM STATUS: COMPLETED Received copy of stress test performed at [facility] on 11/17/2024 Indcication and History: Chest pain. 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 2) Normal left ventricular systolic function, with LVEF 65% 3) Previous study from 2021 reported similar findings. Copy of report sent to scanning. /linda/ LELE HERNADEZ LPN Signed: 12/27/2024 14:41 Receipt Acknowledged By: * AWAITING SIGNATURE * NAJMA HANNAH [facility]ANE [facility]
--- OUTSIDE RECORDS SUMMARY | 2025-03-17 05:08 | XMS_ITS | Encounter Summary ---
Author Name [facility] [facility] [place] Address [address] [place] [id number] Care Team Providers Care Splunk Architect Name Role Phone NAJMA HANNAH Primary Care Provider Aaliyah bowman Insurance Providers: All historical and current Section [...] PART B Jun 21, 2011 PART B [id number] [phone] RENEGAR,W AYNE PATIENT MEDICARE (WNR) MEDICARE (M) PART A Jun 21, 2011 PART A [id number] RENEGAR,W AYNE PATIENT MEDICARE (WNR) MEDICARE (M) PART A Jun 21, 2011 PART A [id number] RENEGAR,W AYNE PATIENT MEDICARE (WNR) MEDICARE (M) PART B Jun 21, 2011 PART B [id number] RENEGAR,W AYNE PATIENT Selected Encounter This section includes the information on record at [place] for the Encounter. Date/Time Encounter Type Encounter Description Reason Provider Source Mar 17, 2025 10:08 AM Outpatient Encounter CL[facility]ICAL [facility]ARMACY [facility] Encounter Template Text not used by [place] Plan of Treatment: Future Appointments (+ 6 months) and Future Tests (+/- 45 days) The Plan of Treatment section includes future care activities for the patient from all [place] [facility] This section includes future appointments and future orders which are active, pending or scheduled. Future Appointments This section includes appointments that were scheduled to occur 6 months from the date of the Encounter, up to a maximum of 20 appointments. The data comes from all [facility]. Appointment Date/Time Appointment Type Appointme nt Facility Name Mar 21, 2025 02:00 PM AMBULATORY - [facility]INE [facility] Mar 28, 2025 10:00 AM AM[facility]UL[facility]ORY - MEDICINE [facility] Jun 05, 2025 09:00 AM AMBULATORY - MEDIC[facility] Active, Pending, and Scheduled Orders This section includes a listing of several types of active, pending, and scheduled orders, including clinic medications orders, diagnostic test orders, procedure orders and consult orders; where the start date of the order is 45 days before the date of the Encounter or 45 days after the date of theEncounter. The data comes from all [facility]. Test Date/Time Test Type Test Details Facility Name Mar 21, 2025 02:24 PM Procedure Order CP EKG PB CP MUSE EKG POP [id number] Proc [facility] Mar 21, 2025 02:55 PM Consult Order COMMUNITY CARE-EMERGENCY ROOM [id number] Cons [facility] Advance Directives: All historical and current Section Date Range: From patient's date of to the date document was created. This section includes ALL of a patient's completed or amended [place] Advance and Rescinded Directives. The entries below indicate that a directive exists for the patient, but an actual copy is not included with this document. The data comes from all [facility]. Date Advance Directives Provider Source May 26, 2013 ADVANCE DIRECTIVE GERARDO FLORES [facility] May 26, 2013 ADVANCE DIRECTIVE DISCUSSION REESE DICKINSON [facility] Jun 06, 2011 ADVANCE DIRECTIVE DISCUSSION REESE DICKINSON [facility] Aug 06, 2010 ADVANCE DIRECTIVE REESE DICKINSON [facility] Encounter Notes: All associated encounter notes This section contains the clinical notes associated to the Encounter. Date/Time Encounter Note(s) Provider Source Mar 17, 2025 10:08 AM PHARMACY NOTE: LOCAL TITLE: MEDICATION REFILL/RENEWAL PHARMACY USE PB STANDARD TITLE: PHARMACY NOTE DATE OF NOTE: MAR 17, 2025@10:08 ENTRY DATE: MAR 17, 2025@10:08:59 AUTHOR: MANASA PERALTA EXP COSIGNER: URGENCY: STATUS: COMPLETED PB PHARMACY MEDICATION REFILL/RENEWAL CLINIC LOUANN GERBER SR has contacted the pharmacy and is requesting that the following prescription(s) be renewed. The patient reports that he/she is currently LOW on his/her supply of medication. He/she is requesting a new supply be mailed by . Last visit: Future visits: 03/28/25 10:00 am COM CARE-ENT [id number] 06/05/25 9:00 am PB-DENTAL HYGEN # 11/22/25 11:30 am PB-MILADYS CVT PACT DEL[place] [phone] 11/22/25 11:31 am PB-[facility] CVT PACT DELTA([place] [phone] MEDICATION REQUESTED: RANOLAZINE 1000MG SA TAB [facility] Cardiology - [address] [address] alternate fax for [place] Referrals: [phone] [phone] 09/19/24 - 07/10/25 RENEWAL REQUEST HAS BEEN SENT TO [GATO PEREZ] WITH PRE-POPULATED VALUES VIA [employer] (ELECTRONICALLY). NOTE: has requested via [employer] (phone automation). Thank you /linda/ MANASA PERALTA nursing agency manager Signed: 03/17/2025 10:09 MANASA PERALTA [facility]
--- OUTSIDE RECORDS SUMMARY | 2025-03-21 10:17 | XMS_ITS | Continuity of Care Document ---
Author Name [facility] Organization [facility] Care Team Providers Care Jeep Driver Name Role Phone [facility] Unavailable Unavailable Problems Combined list of problems from Department of Defense and Veterans Affairs facilities. It does not include entries that were removed or entered in error. 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) Active Condition Sep 02, 2022 Entered By: NAJMA HANNAH Comment: Cardiology at [facility], cardiac cath 2019, no blockageDec 2021 Entered By: NAJMA HANNAH Comment: Had same in 2010, [place] [facility] Bilateral tinnitus Active Condition [place] [facility] Bradycardia Active Condition [place] [facility] Carotid artery disease Active Condition Feb 25, 2023 Entered By: NAJMA HANNAH Comment: Definitely notify chest x-ray we will order ultrasound bilateral carotid arteries.Apr 20, 2023 Entered By: NAJMA HANNAH Comment: US 03/2023 less than 40%. [place] [facility] Cataract (SCT [id number]) Active Condition Mar 12, 2023 Entered By: NAJMA HANNAH Comment: Cataract surgery left and right October 2022. [place] [facility] Chronic post-traumatic stress disorder Active Condition [place] [facility] Colonoscopy normal Active Condition D ec 2021 Entered By: NAJMA HANNAH Comment: Colonoscopy normal 2009, due 01/2021, patient did Cologuard instead was normal. [place] [facility] Coronary heart disease (SNOMED CT 71325142) Active Condition Sep 26, 2020 Entered By: NAJMA HANNAH Comment: per cardiology no Plavix DC'd on 07/10/19. 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) Active Condition Sep 02, 2022 Entered By: NAJMA HANNAH Comment: leftDec 2021 Entered By: NAJMA HANNAH Comment: Injections by LEONARD Gaona in [place],Nov 03, 2022 Entered By: NAJMA HANNAH Comment: Patient needs reversal surgery Ortho [place] [facility] Early satiety Active Condition Nov Entered By: NAJMA HANNAH Comment: had egd 10/2023 = erosive gastropathy [place] [facility] Erectile dysfunction (SNOMED CT 502873155) Active Condition Sep 02, 2022 Entered By: NAJMA HANNAH Comment: Peyronie's disease, urgency [place] [facility] Exposure to Agent Yancey Active Condition [place] [facility] Exposure to potentially hazardous substance Active Condition [place] [facility] History of cataract surgery Active Condition Sep 02 Entered By: NAJMA HANNAH Comment: Bilateral, 06/2022. [place] [facility] HLD - Hyperlipidemia (SNOMED CT 19690119) Active Condition Dec 30, 2024 Entered By: NAJMA HANNAH Comment: cardiac sterss and echoi normal [place] [facility] Hypertension (SNOMED CT 57403317) Active Condition [place] [facility] Obstructive Sleep Apnea of Adult (SCT 8683375299156) Active Condition Nov 30, 2023 Entered By: NAJMA HANNAH Comment: dx yearssa burger not using cpap, old [place] [facility] Pneumonia Active Condition Feb 25 Entered By: NAJMA HANNAH Comment: abnormal cxr , needs repeat cxr in 1 month [place] [facility] Postsurgical Aortocoronary Bypass Status (ICD-9-CM V45.81) Active Condition [facility] Posttraumatic stress disorder Active Condition Feb 26, 2023 Entered By: NAJMA HANNAH Comment: insomnia [place] [facility] Upper abdominal pain Active Condition Apr 20, 2023 Entered By: NAJMA HANNAH Comment: CT scan chest abdomen pelvis 03/2023 revealed scarring along/opacity treated for pneumonia, sees pulmonary. Nothing in abdomen. [place] [facility] Abdominal Pain Inactive Condition 08/29/[address] [place] [facility] Angina (SNOMED CT 826088519) Inactive Condition 08/29/2015 [facility] Anxiety * (ICD-9-CM 300.00/300.09) Inactive Condition 08/29/[address] [place] [facility] Atypical Chest Pain (ICD-9-CM 786.59) Inactive Condition 08/29/[address] [place] [facility] Chills and fever (ICD-9-CM 780.6) Inactive Condition [facility]29[facility]2015 [facility] Coronary Artery Disease * (ICD-9-CM 414.9) Inactive Condition 08/29/2015 [facility] Encounters for other Specified Administrative Purpose (ICD-9-CM V68.89) Inactive Condition 08/29/2015 [facility] Facial Dermatoses (ICD-9-CM 709.9) Inactive Condition 08/29/2015 [facility] Generalized Anxiety Disorder Inactive Condition 08/29/2015 [facility] Hearing loss * (ICD-9-CM 389.9) Inactive Condition 08/29/2015 Nov 04 1 Entered By: SHANNON VALERIO Comment: SC: BILATERAL HEARING LOSS [facility] Helicobacter Pylori [H. Pylori] Infection in conditions classified elsewhere and Inactive Condition 08/29/2015 [facility] Laboratory Examination, unspecified (ICD-9-CM V72.60) Inactive Condition 08/29/2015 [facility] Microscopic hematuria (SNOMED CT 822165436) Inactive Condition 08/29/2015 [facility] Obstructive Sleep APNEA (ADULT) (Pediatric) (ICD-9-CM 327.23) Inactive Condition 08/29/2015 [facility] Pleural Effusion * (ICD-9-CM 511.9) Inactive Condition 08/29/2015 [facility] POSTTRAUMATIC STRESS DIS Inactive Condition 08/29/[address] [facility] SCREENING FOR OTHER AND UNSPECIFIED CARDIOVASCULAR CONDITIONS Inactive Condition 08/29/2015 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) Inactive Condition 08/29/[address] [facility] Diagnosis: ICD-10-CM K03.6 Deposits [accretions] on teeth Active Diagnosis [facility] Diagnosis: ICD-10-CM Z00.01 Encounter for general adult medical exam w abnormal findings Active Diagnosis [facility] Diagnosis: ICD-10-CM Z46.1 Encounter for fitting and adjustment of hearing aid Active Diagnosis [facility] Diagnosis: ICD-10-CM R07.9 Chest pain, unspecified Active Diagnosis [facility] Diagnosis: ICD-10-CM H93.13 Tinnitus, bilateral Active Diagnosis [facility] Diagnosis: ICD-10-CM H61.23 Impacted cerumen, bilateral Active Diagnosis [facility] Diagnosis: ICD-10-CM Z01.30 Encounter for exam of blood pressure w/o abnormal findings Active Diagnosis [facility] Diagnosis: ICD-10-CM E78.5 Hyperlipidemia, unspecified Active Diagnosis [facility] Diagnosis: ICD-10-CM I10 Essential (primary) hypertension Active Diagnosis [facility] Diagnosis: ICD-10-CM R00.1 Bradycardia, unspecified Active Diagnosis [facility] Medications Combined list of outpatient medications from Department of Defense and Veterans Affairs facilities.Medications provided include 1) outpatient medications from the last 15 months, and 2) patient-reported medications. Medication Details Route Status Patient Instructions Prescription Expires Prescription Number Last Dispense Date Ordering Provider Order Date Order Qty Source ASPIRIN 81MG TAB,EC TAKE ONE TABLET BY MOUTH ONCE A DAY FOR HEART ORAL ACTIVE 12/09/2025 [id number] 5 MALLORY HANNAH 2024 120 [facility] ASPIRIN 81MG TAB,EC TAKE ONE TABLET BY MOUTH ONCE A DAY FOR HEART ORAL DISCONT INUED 09/25/2024 [id number] 4 MALLORY HANNAH 2023 120 [place] [facility] CHOLECALCIF BURAK 50MCG (2,000UNIT) TAB TAKE TWO TABLETS BY MOUTH ONCE A DAY FOR VITAMIN D SUPPLEME NT ORAL ACTIVE 12/09/2025 [id number] 5 MALLORY HANNAH 2024 200 [place] [facility] CHOLECALCIF BURAK 50MCG (2,000UNIT) TAB TAKE TWO TABLETS BY MOUTH ONCE A DAY FOR VITAMIN D SUPPLEME NT ORAL DISCONT INUED 11/30/2024 [id number] 4 MALLORY HANNAH 2023 200 [facility] CLOPIDOGREL BISULFATE 75MG TAB TAKE ONE TABLET BY MOUTH ONCE A DAY FOR ACUTE CORONARY SYNDROME ORAL SUSPEND ED 08/03/2025 [id number] 5 BITA VICKERS 2023 90 [facility] CLOPIDOGREL BISULFATE 75MG TAB TAKE ONE TABLET BY MOUTH ONCE A DAY FOR ACUTE CORONARY SYNDROME ORAL DISCONT INUED 07/09/2024 [id number] 4 BITA VICKERS 2022 90 [facility] DEXTROMETHO RPHAN 10MG/GUAIFE NESIN 100MG/5ML (ALC-F) LIQUID TAKE 10 ML BY MOUTH THREE TIMES A DAY NEEDED FOR COUGH/CO NGESTION (TAKE WITH 8 OUNCE GLASS OF WATER) ORAL 09/01/2024 [id number] 4 MALLORY HANNAH 2023 480 [place] [facility] DEXTROMETHO RPHAN HBR 10MG/GUAIFE NESIN 100MG/5ML (AF & SF) LIQUID TAKE 10 ML BY MOUTH THREE TIMES A DAY NEEDED FOR COUGH/CO NGESTION (TAKE WITH 8 OUNCE GLASS OF WATER) ORAL DISCONT INUED (EDIT) 08/24/2024 [id number] 4 MALLORY HANNAH 2023 480 [place] [facility] ERYTHROMYCI N 0.5% OINT,OPH APPLY ONE-FOUR TH INCH RIBBON TO AFFECTED EYE(S) EVERY EVENING FOR BACTERIA L INFECTIO N OPHTHA LMIC ACTIVE 09/09/2025 [id number] 4 Neelam LAU 2023 1 [place] [facility] FOLIC ACID 0.4MG TAB TAKE ONE TABLET BY MOUTH ONCE A DAY FOR FOLIC ACID SUPPLEME NTATION ORAL ACTIVE 11/30/2025 [id number] 5 MALLORY HANNAH 2024 100 [place] [facility] ISOSORBIDE MONONITRATE 60MG TAB,SA TAKE ONE AND ONE-HALF TABLETS BY MOUTH ONCE A DAY FOR HEART AND TO PREVENT CHEST PAIN ORAL ACTIVE 03/17/2026 [id number] 5 MALLORY HANNAH 2024 135 [place] [facility] ISOSORBIDE MONONITRATE 60MG TAB,SA TAKE ONE AND ONE-HALF TABLETS BY MOUTH ONCE A DAY FOR HEART AND TO PREVENT CHEST PAIN ORAL DISCONT INUED 01/21/2025 [id number] 5 MALLORY HANNAH 2023 135 [place] [facility] MULTIVIT/OP HTH AREDS2/LUTE IN/ZEAXANTH IN CAP/TAB TAKE 1 CAP/TAB BY MOUTH TWICE A DAY FOR EYE HEALTH AVOID IF YOU HAVE PEANUT ALLERGY. ORAL ACTIVE 01/04/2026 [id number] 5 MAGI HARMAN 2024 240 [place] [facility] PANTOPRAZOL E NA 20MG TAB,EC TAKE ONE TABLET BY MOUTH ONCE A DAY TAKE 30 MINUTES BEFORE MEAL(S) ORAL SUSPEND ED 06/14/2025 [id number] 5 MALLORY HANNAH 2024 90 [place] [facility] PANTOPRAZOL E NA 20MG TAB,EC TAKE ONE TABLET BY MOUTH ONCE A DAY TAKE 30 MINUTES BEFORE MEAL(S) ORAL DISCONT INUED 05/03/2025 [id number] 5 MALLORY HANNAH 2024 90 [place] [facility] PANTOPRAZOL E NA 20MG TAB,EC TAKE ONE TABLET BY MOUTH ONCE A DAY TAKE 30 MINUTES BEFORE MEAL(S) ORAL DISCONT INUED 02/06/2025 [id number] 5 BRIELLEMALLORY Trevon Peters 2024 60 [place] [facility] PANTOPRAZOL E NA 20MG TAB,EC TAKE ONE TABLET BY MOUTH ONCE A DAY TAKE 30 MINUTES BEFORE MEAL(S) ORAL DISCONT INUED 11/06/2024 [id number] 5 MALLORY HANNAH 2024 60 [place] [facility] PANTOPRAZOL E NA 20MG TAB,EC TAKE ONE TABLET BY MOUTH ONCE A DAY TAKE 30 MINUTES BEFORE MEAL(S) ORAL DISCONT INUED 10/01/2024 [id number] 4 MLALORY HANNAH 2023 60 [place] [facility] PANTOPRAZOL E NA 20MG TAB,EC TAKE ONE TABLET BY MOUTH ONCE A DAY TAKE 30 MINUTES BEFORE MEAL(S) ORAL DISCONT INUED 07/12/2024 [id number] 4 BRIELLEMALLORY Trevon Peters 2023 60 [place] [facility] PANTOPRAZOL E NA 20MG TAB,EC TAKE ONE TABLET BY MOUTH ONCE A DAY TAKE 30 MINUTES BEFORE MEAL(S) ORAL DISCONT INUED 03/12/2025 [id number] 4 BRIELLEMALLORY Trevon Peters 2023 30 [place] [facility] PANTOPRAZOL E NA 20MG TAB,EC TAKE ONE TABLET BY MOUTH ONCE A DAY TAKE 30 MINUTES BEFORE MEAL(S) ORAL DISCONT INUED 12/31/2024 [id number] 4 BRIELLEMALLORY Trevon Peters 2023 30 [facility] PEG-400 0.4%/PROPYL BISI GLYCOL 0.3% SOLN,OPH INSTILL 2 DROPS IN AFFECTED EYE(S) ONCE A DAY NEEDED FOR DRY EYE(S) OPHTHA LMIC 12/21/2024 [id number] SANDRA HUTCHINSL G 2023 90 [facility] PREDNISOLON E ACETATE 1% SUSP,OPH INSTILL 1 DROP IN RIGHT EYE TWICE A DAY FOR EYE INFLAMMA TION OPHTHA LMIC ACTIVE 09/09/2025 [id number] 4 Neelam LAU 2023 5 [place] [facility] PROMETHAZIN E HCL 6.25MG/5ML SYRUP TAKE 10 ML BY MOUTH THREE TIMES A DAY NEEDED WITH DM FOR COUGH CONGESTI ON *MAY CAUSE DROWSINE SS* ORAL 08/24/2024 [id number] 4 MALLORY HANNAH 2023 480 [facility] RANOLAZINE 1000MG TAB,SA TAKE ONE TABLET BY MOUTH EVERY 12 HOURS *SWALLOW WHOLE- DO NOT CRUSH,BR EAK OR CHEW* ORAL ACTIVE 03/18/2026 [id number] Lorraine PEREZ 2024 180 [place] [facility] RANOLAZINE 1000MG TAB,SA TAKE ONE TABLET BY MOUTH EVERY 12 HOURS . *SWALLOW WHOLE- DO NOT CRUSH,BR EAK OR CHEW* ORAL DISCONT INUED 09/16/2025 [id number] 5 Lorraine PEREZ [address] [place] [facility] RANOLAZINE 1000MG TAB,SA TAKE ONE TABLET BY MOUTH EVERY 12 HOURS *SWALLOW WHOLE- DO NOT CRUSH,BR EAK OR CHEW* ORAL DISCONT INUED 04/12/2025 [id number] 4 CASEY KIMBALL 2023 60 [place] [facility] RANOLAZINE 1000MG TAB,SA TAKE ONE TABLET BY MOUTH EVERY 12 HOURS *SWALLOW WHOLE- DO NOT CRUSH,BR EAK OR CHEW* ORAL DISCONT INUED 08/27/2024 [id number] 4 CASEY KIMBALL 2022 60 [place] [facility] SACUBITRIL 49MG/VALSAR PEARSON 51MG TAB TAKE ONE-HALF TABLET BY MOUTH TWICE A DAY ORAL ACTIVE 06/14/2025 [id number] 5 MALLORY HANNAH 2024 90 [facility] SACUBITRIL 49MG/VALSAR PEARSON 51MG TAB TAKE ONE-HALF TABLET BY MOUTH TWICE A DAY ORAL DISCONT INUED 03/08/2025 [id number] 5 MALLORY HANNAH [address] [place] [address] [facility] SACUBITRIL 49MG/VALSAR PEARSON 51MG TAB TAKE ONE-HALF TABLET BY MOUTH TWICE A DAY ORAL DISCONT INUED 12/08/2024 [id number] 4 MALLORY HANNAH [address] [place] [address] [facility] SACUBITRIL 49MG/VALSAR PEARSON 51MG TAB TAKE ONE-HALF TABLET BY MOUTH TWICE A DAY ORAL DISCONT INUED 08/11/2024 [id number] 4 Lorraine PEREZ [address] [place] [facility] SACUBITRIL 49MG/VALSAR PEARSON 51MG TAB TAKE ONE-HALF TABLET BY MOUTH TWICE A DAY ORAL DISCONT INUED 04/07/2024 [id number] Lorraine PEREZ [address] [place] [facility] TRETINOIN 0.025% CREAM,TOP APPLY A PEA SIZE AMOUNT TO FACE TO AFFECTED AREA(S) AT BEDTIME NEEDED FOR FLARES. CLEANSE SKIN IN THE MORNING FOLLOWIN Alexander Carmona ACTIVE 08/12/2025 [id number] RENATA PASTRANA [address] [place] [facility] Allergies, Adverse Reactions, Alerts Combined list of allergies from Department of Defense and Veterans Affairs facilities. It does not include entries that were removed or entered in error. Substance Category Reaction Severity Reaction type Status Date Reported Comments Source RANOLAZINE Propensity to adverse reactions to drug (finding) Nausea and vomiting, Dizziness active 6 [facility] Immunizations Combined list of available immunizations from the Department of Defense and Veterans Affairs facilities. Immunization Series Date Given Administered By Site Reaction Lot Number CVX Code Drug Well Control Instructor Status Comments Source INFLUENZA, HIGH-DOSE, QUADRIVALENT 2022 MIRYAM GAMA LEFT DELTO ID [id number] 197 complet ed [facility] PNEUMOCOCCAL POLYSACCHARID E PPV23 2022 DIVELBISS,ZACH DA RIGHT DELTO ID [id number] 33 complet ed Completed Series, [facility] TDAP 2022 DIVELBISS,ZACH DA LEFT DELTO ID [id number] 115 complet ed Completed Series, [facility] (MODERNA), MRNA, LNP-S, BIVALENT, PF, 50 MCG/0.5 ML OR 25MCG/0.25 ML DOSE 4 2021 229 complet ed HISTORICA L INFORMATI ON - FROM OTHER [facility], [facility] INFLUENZA, UNSPECIFIED FORMULATION 2021 88 complet ed Completed Series, HISTORICA L INFORMATI ON - [facility] INFLUENZA, HIGH-DOSE, QUADRIVALENT, PF 1 2021 197 complet ed HISTORICA L INFORMATI ON - FROM OTHER REGISTRY, [facility] INFLUENZA, INJECTABLE, QUADRIVALENT, PRESERVATIVE FREE 2021 150 complet ed [facility] ([facility]), MRNA, LNP-S, PF, 100 MCG/0.5ML DOSE OR 50 MCG/0.25ML DOSE 3 2020 207 complet ed HISTORICA L INFORMATI ON - FROM OTHER REGISTRY, [facility] COVID-19 (MODERNA), MRNA, LNP-S, PF, 100 MCG/0.5ML DOSE OR 50 MCG/0.25ML DOSE 2 2020 207 complet ed HISTORICA L INFORMATI ON - FROM OTHER REGISTRY, [facility] COVID-19 (MODERNA), MRNA, LNP-S, PF, 100 MCG/0.5ML DOSE OR 50 MCG/0.25ML DOSE 1 2020 207 complet ed HISTORICA L INFORMATI ON - FROM OTHER REGISTRY, [facility] INFLUENZA, INJECTABLE, QUADRIVALENT, PRESERVATIVE FREE 2019 150 complet ed [facility] INFLUENZA, INJECTABLE, QUADRIVALENT, PRESERVATIVE FREE [address] [facility] INFLUENZA, SEASONAL, INJECTABLE, PRESERVATIVE FREE 2016 140 complet ed Left Deltoid [place] [facility] INFLUENZA, SEASONAL, INJECTABLE, PRESERVATIVE FREE 2015 [address] [place] [facility] INFLUENZA, SEASONAL, INJECTABLE, PRESERVATIVE FREE 2014 140 complet ed [place] [facility] PNEUMOCOCCAL CONJUGATE PCV 13 2014 133 complet ed [place] [facility] INFLUENZA, SEASONAL, INJECTABLE, PRESERVATIVE FREE 2013 140 complet ed [place] [facility] TDAP 2012 115 complet ed Right Deltoid [place] [facility] INFLUENZA, UNSPECIFIED FORMULATION 2011 88 complet ed [place] [facility] INFLUENZA, UNSPECIFIED FORMULATION 2011 88 complet ed [place] [facility] PNEUMOCOCCAL, UNSPECIFIED FORMULATION 2011 109 complet ed [place] [facility] INFLUENZA, UNSPECIFIED FORMULATION 2010 88 complet ed [place] [facility] INFLUENZA (HISTORICAL) 2009 88 complet ed [place] [facility] INFLUENZA, UNSPECIFIED FORMULATION 2008 88 complet ed [place] [facility] INFLUENZA (HISTORICAL) 2006 88 complet ed [place] [facility] INFLUENZA, UNSPECIFIED FORMULATION 2006 88 complet ed [facility] TD(ADULT) UNSPECIFIED FORMULATION 2002 139 complet ed [place] [facility] Results Combined list of recent chemistry, hematology and other laboratory results from Department of Defense and Veterans Affairs, ranging from 15 months to all on record, depending upon the facility. Order Name Results Value Reference Range Date Interpretation Specimen Comments Source B12 COBALAMIN (VITAMIN B12) [MASS/VOLUM E] IN SERUM OR PLASMA 297 pg/mL 213 - 816 11/23 Specimen Type: SERUM No comment entered. Ordering Provider: NAJMA HANNAH Report Released Date/Time: Nov 23, 2024 09:47 AM Reporting Lab: [place] [facility] [address] [place] [address] Performing Lab: [place] [facility] [address] [place] [address] [place] [facility] FOLATE (PB) FOLATE [MASS/VOLUM E] IN SERUM OR PLASMA 6.8 ng/mL 7 - 20 11/23 L Specimen Type: SERUM No comment entered. Ordering Provider: NAJMA HANNAH Report Released Date/Time: Nov 23, 2024 09:47 AM Reporting Lab: [place] [facility] [address] [place] [address] Performing Lab: [place] [facility] [address] [place] [address] [place] [facility] HGA1C HEMOGLOBIN A1C/HEMOGLO BIN.TOTAL IN BLOOD 5.4 4.0 - 6.0 11/23 Specimen Type: BLOOD No comment entered. Ordering Provider: NAJMA HANNAH Report Released Date/Time: Nov 23, 2024 09:47 AM Reporting Lab: [place] [facility] [address] [place] [address] Performing Lab: [place] [facility] [address] [place] [address] [place] [facility] CHOLESTER OL PANEL (PB) CHOLESTEROL [MASS/VOLUM E] IN SERUM OR PLASMA 185 mg/dL 0 - 200 11/23 Specimen Type: PLASMA No comment entered. Ordering Provider: NAJMA HANNAH Report Released Date/Time: Nov 23, 2024 09:47 AM Reporting Lab: [place] [facility] [address] [place] [address] Performing Lab: [place] [facility] [address] [place] [address] [place] [facility] CHOLESTER OL PANEL (PB) TRIGLYCERID E [MASS/VOLUM E] IN SERUM OR PLASMA 76 mg/dL 0 - 150 11/23 Specimen Type: PLASMA No comment entered. Ordering Provider: NAJMA HANNAH Report Released Date/Time: Nov 23, 2024 09:47 AM Reporting Lab: [place] [facility] [address] [place] [address] Performing Lab: [place] [facility] [address] [place] [address] [place] [facility] CHOLESTER OL PANEL (PB) CHOLESTEROL IN LDL [MASS/VOLUM E] IN SERUM OR PLASMA BY CALCULATION 108.4 mg/dL 11/23 Specimen Type: PLASMA No comment entered. Ordering Provider: NAJMA HANNAH Report Released Date/Time: Nov 23, 2024 09:47 AM Reporting Lab: [place] [facility] [address] [place] [address] Performing Lab: [place] [facility] [address] [place] [address] [place] [facility] CHOLESTER OL PANEL (PB) CHOLESTEROL IN HDL [MASS/VOLUM E] IN SERUM OR PLASMA 61.4 mg/dL 40 11/23 H Specimen Type: PLASMA No comment entered. Ordering Provider: NAJMA HANNAH Report Released Date/Time: Nov 23, 2024 09:47 AM Reporting Lab: [place] [facility] [address] [place] [address] Performing Lab: [place] [facility] [address] [place] [address] [place] [facility] CHOLESTER OL PANEL (PB) CHOLESTEROL IN HDL/CHOLEST BURAK.TOTAL [MASS RATIO] IN SERUM OR PLASMA 33.2 25 11/23 Specimen Type: PLASMA No comment entered. Ordering Provider: NAJMA HANNAH Report Released Date/Time: Nov 23, 2024 09:47 AM Reporting Lab: [place] [facility] [address] [place] [address] Performing Lab: [place] [facility] [address] [place] [address] [place] [facility] TSH (MA-PB) THYROTROPIN [UNITS/VOLU ME] IN SERUM OR PLASMA 1.592 u[IU]/mL 11/23 Specimen Type: SERUM No comment entered. Ordering Provider: NAJMA HANNAH Report Released Date/Time: Nov 23, 2024 09:47 AM Reporting Lab: [place] [facility] [address] [place] [address] Performing Lab: [place] [facility] [address] [place] [address] [place] [facility] VITAMIN D, 25-HYDROX Y 25-HYDROXYV ITAMIN D3 [MASS/VOLUM E] IN SERUM OR PLASMA 44.7 ng/mL 30 - 96 11/23 Specimen Type: SERUM No comment entered. Ordering Provider: NAJMA HANNAH Report Released Date/Time: Nov 23, 2024 09:47 AM Reporting Lab: [place] [facility] [address] [place] [address] Performing Lab: [place] [facility] [address] [place] [address] [place] [facility] COMPREHEN SIVE METABOLIC PANEL CREATININE [MASS/VOLUM E] IN SERUM OR PLASMA 1.08 mg/dL 0.7 - 1.3 11/23 Specimen Type: PLASMA No comment entered. Ordering Provider: NAJMA HANNAH Report Released Date/Time: Nov 23, 2024 09:47 AM Reporting Lab: [place] [facility] [address] [place] [address] Performing Lab: [place] [facility] [address] [place] [address] [place] [facility] COMPREHEN SIVE METABOLIC PANEL UREA NITROGEN [MASS/VOLUM E] IN SERUM OR PLASMA 17 mg/dL 9 - 25 11/23 Specimen Type: PLASMA No comment entered. Ordering Provider: NAJMA HANNAH Report Released Date/Time: Nov 23, 2024 09:47 AM Reporting Lab: [place] [facility] [address] [place] [address] Performing Lab: [place] [facility] [address] [place] [address] [place] [facility] COMPREHEN SIVE METABOLIC PANEL GLUCOSE [MASS/VOLUM E] IN SERUM OR PLASMA 90 mg/dL 72 - 99 11/23 Specimen Type: PLASMA No comment entered. Ordering Provider: NAJMA HANNAH Report Released Date/Time: Nov 23, 2024 09:47 AM Reporting Lab: [place] [facility] [address] [place] [address] Performing Lab: [place] [facility] [address] [place] [address] [place] [facility] COMPREHEN SIVE METABOLIC PANEL SODIUM [MOLES/VOLU ME] IN SERUM OR PLASMA 140 meq/L 136 - 145 11/23 Specimen Type: PLASMA No comment entered. Ordering Provider: NAJMA HANNAH Report Released Date/Time: Nov 23, 2024 09:47 AM Reporting Lab: [place] [facility] [address] [place] [address] Performing Lab: [place] [facility] [address] [place] [address] [place] [facility] COMPREHEN SIVE METABOLIC PANEL POTASSIUM [MOLES/VOLU ME] IN SERUM OR PLASMA 4.8 meq/L 3.5 - 5 11/23 Specimen Type: PLASMA No comment entered. Ordering Provider: NAJMA HANNAH Report Released Date/Time: Nov 23, 2024 09:47 AM Reporting Lab: [place] [facility] [address] [place] [address] Performing Lab: [place] [facility] [address] [place] [address] [place] [facility] COMPREHEN SIVE METABOLIC PANEL CHLORIDE [MOLES/VOLU ME] IN SERUM OR PLASMA 108 meq/L 98 - 107 11/23 H Specimen Type: PLASMA No comment entered. Ordering Provider: NAJMA HANNAH Report Released Date/Time: Nov 23, 2024 09:47 AM Reporting Lab: [place] [facility] [address] [place] [address] Performing Lab: [place] [facility] [address] [place] [address] [place] [facility] COMPREHEN SIVE METABOLIC PANEL CARBON DIOXIDE, TOTAL [MOLES/VOLU ME] IN SERUM OR PLASMA 27 meq/L 22 - 31 11/23 Specimen Type: PLASMA No comment entered. Ordering Provider: NAJMA HANNAH Report Released Date/Time: Nov 23, 2024 09:47 AM Reporting Lab: [place] [facility] [address] [place] [address] Performing Lab: [place] [facility] [address] [place] [address] [place] [facility] COMPREHEN SIVE METABOLIC PANEL CALCIUM [MASS/VOLUM E] IN SERUM OR PLASMA 9.2 mg/dL 8.4 - 10.4 11/23 Specimen Type: PLASMA No comment entered. Ordering Provider: NAJMA HANNAH Report Released Date/Time: Nov 23, 2024 09:47 AM Reporting Lab: [place] [facility] [address] [place] [address] Performing Lab: [place] [facility] [address] [place] [address] [place] [facility] COMPREHEN SIVE METABOLIC PANEL PROTEIN [MASS/VOLUM E] IN SERUM OR PLASMA 6.8 g/dL 6 - 8.6 11/23 Specimen Type: PLASMA No comment entered. Ordering Provider: NAJMA HANNAH Report Released Date/Time: Nov 23, 2024 09:47 AM Reporting Lab: [place] [facility] [address] [place] [address] Performing Lab: [place] [facility] [address] [place] [address] [place] [facility] COMPREHEN SIVE METABOLIC PANEL ALBUMIN [MASS/VOLUM E] IN SERUM OR PLASMA 4.1 g/dL 3.4 - 5 11/23 Specimen Type: PLASMA No comment entered. Ordering Provider: NAJMA HANNAH Report Released Date/Time: Nov 23, 2024 09:47 AM Reporting Lab: [place] [facility] [address] [place] [address] Performing Lab: [place] [facility] [address] [place] [address] [place] [facility] COMPREHEN SIVE METABOLIC PANEL BILIRUBIN.T OTAL [MASS/VOLUM E] IN SERUM OR PLASMA 0.9 mg/dL 0.2 - 1.2 11/23 Specimen Type: PLASMA No comment entered. Ordering Provider: NAJMA HANNAH Report Released Date/Time: Nov 23, 2024 09:47 AM Reporting Lab: [place] [facility] [address] [place] [address] Performing Lab: [place] [facility] [address] [place] [address] [place] [facility] COMPREHEN SIVE METABOLIC PANEL ALKALINE PHOSPHATASE [ENZYMATIC ACTIVITY/VO LUME] IN SERUM OR PLASMA 47 U/L 40 - 150 11/23 Specimen Type: PLASMA No comment entered. Ordering Provider: NAJMA HANNAH Report Released Date/Time: Nov 23, 2024 09:47 AM Reporting Lab: [place] [facility] [address] [place] [address] Performing Lab: [place] [facility] [address] [place] [address] [place] [facility] COMPREHEN SIVE METABOLIC PANEL ASPARTATE AMINOTRANSF ERASE [ENZYMATIC ACTIVITY/VO LUME] IN SERUM OR PLASMA 17 U/L 5 - 34 11/23 Specimen Type: PLASMA No comment entered. Ordering Provider: NAJMA HANNAH Report Released Date/Time: Nov 23, 2024 09:47 AM Reporting Lab: [place] [facility] [address] [place] [address] Performing Lab: [place] [facility] [address] [place] [address] [place] [facility] COMPREHEN SIVE METABOLIC PANEL ALANINE AMINOTRANSF ERASE [ENZYMATIC ACTIVITY/VO LUME] IN SERUM OR PLASMA 12 U/L 8 - 40 11/23 Specimen Type: PLASMA No comment entered. Ordering Provider: NAJMA HANNAH Report Released Date/Time: Nov 23, 2024 09:47 AM Reporting Lab: [place] [facility] [address] [place] [address] Performing Lab: [place] [facility] [address] [place] [address] [place] [facility] COMPREHEN SIVE METABOLIC PANEL GLOMERULAR FILTRATION RATE/1.73 SQ M.PREDICTED [VOLUME RATE/AREA] IN SERUM, PLASMA OR BLOOD BY CREATININE- BASED FORMULA (CKD-EPI 2020) 70 11/23 Specimen Type: PLASMA No comment entered. Ordering Provider: NAJMA HANNAH Report Released Date/Time: Nov 23, 2024 09:47 AM Reporting Lab: [place] [facility] [address] [place] [address] Performing Lab: [place] [facility] [address] [place] [address] [place] [facility] CBC LEUKOCYTES [#/VOLUME] IN BLOOD BY AUTOMATED COUNT 6.8 10*3/uL 3.6 - 11.2 11/23 Specimen Type: BLOOD No comment entered. Ordering Provider: NAJMA HANNAH Report Released Date/Time: Nov 23, 2024 09:47 AM Reporting Lab: [place] [facility] [address] [place] [address] Performing Lab: [place] [facility] [address] [place] [address] [place] [facility] CBC ERYTHROCYTE S [#/VOLUME] IN BLOOD BY AUTOMATED COUNT 5.13 10*6/uL 4.10 - 5.70 11/23 Specimen Type: BLOOD No comment entered. Ordering Provider: NAJMA HANNAH Report Released Date/Time: Nov 23, 2024 09:47 AM Reporting Lab: [place] [facility] [address] [place] [address] Performing Lab: [place] [facility] [address] [place] [address] [place] [facility] HEMOGLOBIN [MASS/VOLUM E] IN BLOOD 15.4 g/dL 13.1 - 16.8 11/23 Specimen Type: BLOOD No comment entered. Ordering Provider: NAJMA HANNAH Report Released Date/Time: Nov 23, 2024 09:47 AM Reporting Lab: [place] [facility] [address] [place] [address] Performing Lab: [place] [facility] [address] [place] [address] [place] [facility] CBC HEMATOCRIT [VOLUME FRACTION] OF BLOOD 46.1 38.2 - 48.4 11/23 Specimen Type: BLOOD No comment entered. Ordering Provider: NAJMA HANNAH Report Released Date/Time: Nov 23, 2024 09:47 AM Reporting Lab: [place] [facility] [address] [place] [address] Performing Lab: [place] [facility] [address] [place] [address] [place] [facility] CBC MCV [ENTITIC VOLUME] BY AUTOMATED COUNT 89.9 fL 80.0 - 100.0 11/23 Specimen Type: BLOOD No comment entered. Ordering Provider: NAJMA HANNAH Report Released Date/Time: Nov 23, 2024 09:47 AM Reporting Lab: [place] [facility] [address] [place] [address] Performing Lab: [place] [facility] [address] [place] [address] [place] [facility] CBC MCH [ENTITIC MASS] BY AUTOMATED COUNT 30.0 pg 27.0 - 34.0 11/23 Specimen Type: BLOOD No comment entered. Ordering Provider: NAJMA HANNAH Report Released Date/Time: Nov 23, 2024 09:47 AM Reporting Lab: [place] [facility] [address] [place] [address] Performing Lab: [place] [facility] [address] [place] [address] [place] [facility] CBC MCHC [MASS/VOLUM E] BY AUTOMATED COUNT 33.4 g/dL 33.0 - 36.0 11/23 Specimen Type: BLOOD No comment entered. Ordering Provider: NAJMA HANNAH Report Released Date/Time: Nov 23, 2024 09:47 AM Reporting Lab: [place] [facility] [address] [place] [address] Performing Lab: [place] [facility] [address] [place] [address] [place] [facility] PLATELETS [#/VOLUME] IN BLOOD BY AUTOMATED COUNT 203 10*3/uL 150 - 400 11/23 Specimen Type: BLOOD No comment entered. Ordering Provider: ANJMA HANNAH Report Released Date/Time: Nov 23, 2024 09:47 AM Reporting Lab: [place] [facility] [address] [place] [address] Performing Lab: [place] [facility] [address] [place] [address] [place] [facility] PLATELET MEAN VOLUME [ENTITIC VOLUME] IN BLOOD BY AUTOMATED COUNT 10.3 fL 7.5 - 11.2 11/23 Specimen Type: BLOOD No comment entered. Ordering Provider: NAJMA HANNAH Report Released Date/Time: Nov 23, 2024 09:47 AM Reporting Lab: [place] [facility] [address] [place] [address] Performing Lab: [place] [facility] [address] [place] [address] [place] [facility] ERYTHROCYTE DISTRIBUTIO N WIDTH [RATIO] BY AUTOMATED COUNT 13.5 11.8 - 15.1 11/23 Specimen Type: BLOOD No comment entered. Ordering Provider: NAJMA HANNAH Report Released Date/Time: Nov 23, 2024 09:47 AM Reporting Lab: [place] [facility] [address] [place] [address] Performing Lab: [place] [facility] [address] [place] [address] [place] [facility] CBC LYMPHOCYTES /100 LEUKOCYTES IN BLOOD BY AUTOMATED COUNT 26.8 11/23 Specimen Type: BLOOD No comment entered. Ordering Provider: NAJMA HANNAH Report Released Date/Time: Nov 23, 2024 09:47 AM Reporting Lab: [place] [facility] [address] [place] [address] Performing Lab: [place] [facility] [address] [place] [address] [place] [facility] MONOCYTES/1 00 LEUKOCYTES IN BLOOD BY AUTOMATED COUNT 9.6 11/23 Specimen Type: BLOOD No comment entered. Ordering Provider: NAJMA HANNAH Report Released Date/Time: Nov 23, 2024 09:47 AM Reporting Lab: [place] [facility] [address] [place] [address] Performing Lab: [place] [facility] [address] [place] [address] [place] [facility] NEUTROPHILS /100 LEUKOCYTES IN BLOOD BY AUTOMATED COUNT 61.3 11/23 Specimen Type: BLOOD No comment entered. Ordering Provider: NAJMA HANNAH Report Released Date/Time: Nov 23, 2024 09:47 AM Reporting Lab: [place] [facility] [address] [place] [address] Performing Lab: [place] [facility] [address] [place] [address] [place] [facility] EOSINOPHILS /100 LEUKOCYTES IN BLOOD BY AUTOMATED COUNT 1.6 11/23 Specimen Type: BLOOD No comment entered. Ordering Provider: NAJMA HANNAH Report Released Date/Time: Nov 23, 2024 09:47 AM Reporting Lab: [place] [facility] [address] [place] [address] Performing Lab: [place] [facility] [address] [place] [address] [place] [facility] BASOPHILS/1 00 LEUKOCYTES IN BLOOD BY AUTOMATED COUNT 0.4 11/23 Specimen Type: BLOOD No comment entered. Ordering Provider: NAJMA HANNAH Report Released Date/Time: Nov 23, 2024 09:47 AM Reporting Lab: [place] [facility] [address] [place] [address] Performing Lab: [place] [facility] [address] [place] [address] [place] [facility] CBC LYMPHOCYTES [#/VOLUME] IN BLOOD BY AUTOMATED COUNT 1.81 10*3/uL 0.77 - 4.50 11/23 Specimen Type: BLOOD No comment entered. Ordering Provider: NAJMA HANNAH Report Released Date/Time: Nov 23, 2024 09:47 AM Reporting Lab: [place] [facility] [address] [place] [address] Performing Lab: [place] [facility] [address] [place] [address] [place] [facility] CBC MONOCYTES [#/VOLUME] IN BLOOD BY AUTOMATED COUNT 0.65 10*3/uL 0.19 - 0.8 11/23 Specimen Type: BLOOD No comment entered. Ordering Provider: NAJMA HANNAH Report Released Date/Time: Nov 23, 2024 09:47 AM Reporting Lab: [place] [facility] [address] [place] [address] Performing Lab: [place] [facility] [address] [place] [address] [place] [facility] CBC NEUTROPHILS [#/VOLUME] IN BLOOD BY AUTOMATED COUNT 4.14 10*3/uL 2.10 - 8.00 11/23 Specimen Type: BLOOD No comment entered. Ordering Provider: NAJMA HANNAH Report Released Date/Time: Nov 23, 2024 09:47 AM Reporting Lab: [place] [facility] [address] [place] [address] Performing Lab: [place] [facility] [address] [place] [address] [place] [facility] CBC EOSINOPHILS [#/VOLUME] IN BLOOD BY AUTOMATED COUNT 0.11 10*3/uL 0.00 - 0.60 11/23 Specimen Type: BLOOD No comment entered. Ordering Provider: NAJMA HANNAH Report Released Date/Time: Nov 23, 2024 09:47 AM Reporting Lab: [place] [facility] [address] [place] [address] Performing Lab: [place] [facility] [address] [place] [address] [place] [facility] CBC BASOPHILS [#/VOLUME] IN BLOOD BY AUTOMATED COUNT 0.03 10*3/uL 0.00 - 0.20 11/23 Specimen Type: BLOOD No comment entered. Ordering Provider: NAJMA HANNAH Report Released Date/Time: Nov 23, 2024 09:47 AM Reporting Lab: [place] [facility] [address] [place] [address] Performing Lab: [place] [facility] [address] [place] [address] [place] [facility] IMMATURE GRANULOCYTE S/100 LEUKOCYTES IN BLOOD BY AUTOMATED COUNT 0.3 11/23 Specimen Type: BLOOD No comment entered. Ordering Provider: NAJMA HANNAH Report Released Date/Time: Nov 23, 2024 09:47 AM Reporting Lab: [place] [facility] [address] [place] [address] Performing Lab: [place] [facility] [address] [place] [facility] [place] [facility] CBC IMMATURE GRANULOCYTE S [#/VOLUME] IN BLOOD BY AUTOMATED COUNT 0.02 10*3/uL 0.00 - 0.05 11/23 Specimen Type: BLOOD No comment entered. Ordering Provider: NAJMA HANNAH Report Released Date/Time: Nov 23, 2024 09:47 AM Reporting Lab: [place] [facility] [address] [place] [address] Performing Lab: [place] [facility] [address] [place] [address] [place] [facility] OCCULT BLOOD FIT X1 SCREEN HEMOGLOBIN. GASTROINTES TINAL.LOWER [PRESENCE] IN STOOL BY IMMUNOASSAY Negative 07/06 Specimen Type: FECES No comment entered. Ordering Provider: NAJMA HANNAH Report Released Date/Time: Jun 03, 2024 08:57 AM Reporting Lab: [place] [facility] [address] [place] [facility] Performing Lab: [place] [facility] [address] [place] [address] [facility] OCCULT [facility]LO[facility] FIT X1 SCREEN HEMOGLOBIN. GASTROINTES TINAL.LOWER [PRESENCE] IN STOOL BY IMMUNOASSAY INVALID 01/09 Specimen Type: FECES Comment: Test invalid. Collection date could not be determined. Sample integrity cannot be ensured. Please recollect specimen and resubmit for testing. Ordering Provider: NAJMA HANNAH Report Released Date/Time: Nov 30, 2023 12:55 PM Reporting Lab: [place] [facility] [address] [place] [facility] Performing Lab: [place] [facility] [address] [place] [address] [facility] Vital Signs Combined list of inpatient and outpatient Vital Signs from Department of Defense and Veterans Affairs, ranging from 12 months to all on record, depending upon the facility. Vital Sign Value Date Comments Source SYSTOLIC BLOOD PRESSURE 110 11/29/2024 09:38:[facility] DIASTOLIC BLO[facility] PRESSURE 62 11/29/2024 09:38:03 [place] [facility] PULSE OXIMETRY 95 11/29/2024 09:38:03 [facility] WEIGHT 144 11/29/2024 09:38:03 [facility] BMI 24 kg/m2 11/29/2024 09:38:03 [facility] [place] [facility] PAIN 0 11/29/2024 09:38:03 [facility] [place] [facility] TEMPERATURE 97.8 11/29/2024 09:38:03 [place] [place] [facility] PULSE 64 11/29/2024 09:38:03 [facility] [place] [facility] RESPIRATION 20 11/29/2024 09:38:03 [place] [facility] SYSTOLIC BLOOD PRESSURE 134 07/25/2024 14:48:00 [facility] [place] [facility] DIASTOLIC BLOOD PRESSURE 70 07/25/2024 14:48:00 [place] [facility] TEMPERATURE 97.8 07/25/2024 14:48:00 [place] [facility] PULSE 56 07/25/2024 14:48:00 [facility] SYSTOLIC BLOOD PRESSURE 104 04/21/2024 12:28:00 [place] [facility] DIASTOLIC BLOOD PRESSURE 65 04/21/2024 12:28:00 [facility] TEMPERATURE 98 04/21/2024 12:28:00 [facility] PULSE 52 04/21/2024 12:28:00 [place] [facility] RESPIRATION 18 04/21/2024 12:28:00 [place] [place] [facility] Encounters Combined list of: 1) Encounters from Department of [facility] Affairs facilities going backup to the last 18 months, not all VA inpatient encounters are included; 2) Encounters from the Department of Defense facilities going backup to 280 months. Location Location Details Encounter Type Encounter Number Reason For Visit Attending Provider ADM Date DC Date Status Disposition Source [facility] Outpatient Encounter [id number] 09/25 [facility] Outpatient Encounter [id number] 09/28 [facility] Outpatient Encounter [id number] 11/29 [facility] OFFICE O/P EST MOD 30 MIN [id number] Diagnos is: ICD-10- CM R00.1 Bradyca rdia, unspeci NAJMA Hurst R 11/29 [facility] FEE [id number] Diagnos is: ICD-10- CM I10 Essenti al (primar y) hyperte nsion MANN,AN MARGA D 11/29 [facility] OFF/OP EST MAY X REQ PHY/QHP [id number] Diagnos is: ICD-10- CM E78.5 Hyperli pidemia , unspeci NAJMA Hurst R 11/29 [facility] Outpatient Encounter [id number] 12/06 [facility] OFF/OP EST MAY X REQ PHY/QHP [id number] Diagnos is: ICD-10- CM Z01.30 Encount er for exam of blood pressur e w/o abnorma l finding s CUSTRED,TO RRI J 12/20 [facility] Outpatient Encounter [id number] 01/11 [facility] Outpatient Encounter [id number] 02/22 [facility] [facility] Outpatient Encounter [id number] 02/23 [place] [facility] Outpatient Encounter [id number] 02/28 [facility] Outpatient Encounter [id number] 03/01 [place] [facility] Outpatient Encounter [id number] 03/01 [place] [facility] Outpatient Encounter [id number] SILVA,MYCH I T 03/02 [place] [facility] Outpatient Encounter [id number] 03/08 [facility] Outpatient Encounter [id number] 03/17 [facility] Outpatient Encounter [id number] 03/30 [facility] En[facility] [id number] 04/11 [facility] Outpatient Encounter [id number] 04/21 [facility] OFF/OP EST JANUARY X REQ PHY/QHP [id number] Diagnos is: ICD-10- CM H61.23 Impacte d gissel braxton al CUSTRED,TO RRI J 04/21 [facility] Outpatient Encounter [id number] 04/22 [facility] PERIODIC ORAL EVAL EST [id number] Diagnos is: ICD-10- CM K03.6 Deposit s [accret ions] on teeth [place] SPENCER 04/25 [facility] FEE [id number] Diagnos is: ICD-10- CM H93.13 Prachiitu gissel castrejon ALE XANDRA A 04[facility]28 [facility] FITTING/CH ECKING [id number] [id number] Diagnos is: ICD-10- CM H93.13 Prachiitu sgissel ALE XANDRA A 04/28 [facility] Outpatient [facility]counter [id number] 05/13 [facility] Outpatient Encounter [id number] 05/13 [facility] Outpatient Encounter [id number] 05/19 [facility] Outpatient Encounter [id number] 05/31 [facility] Outpatient Encounter [id number] 06/10 [facility] Outpatient Encounter [id number] 06/23 [facility] Outpatient Encounter [id number] 06/27 [facility] Outpatient Encounter [id number] Diagnos is: ICD-10- CM Z46.1 Encount er for fitting and adjustm ent of hearing aid CHRISTOPHER HERNANDEZ A 07/21 [facility] OFF/OP EST JANUARY X REQ PHY/QHP [id number] Diagnos is: ICD-10- CM R07.9 Chest pain, unspeci fied CUSTRED,TO RRI J 07/25 [facility] En[facility] [id number] 07/28 [facility] Outpatient Encounter [id number] 08/03 [facility] Outpatient Encounter [id number] 08/16 [facility] Outpatient Encounter [id number] 08/24 [facility] Outpatient Encounter [id number] 08/31 [facility] FEE [id number] Diagnos is: ICD-10- CM Z46.1 Encount er for fitting and adjustm ent of hearing aid CHRISTOPHER HERNANDEZ A 09/01 [facility] EVALUATION [id number] Diagnos is: ICD-10- CM Z46.1 Encount er for fitting and adjustm ent of hearing aid CHRISTOPHER HERNANDEZ A 09/01 [facility] Outpatient Encounter [id number] 09/08 [facility] Outpatient Encounter [id number] 09/08 [facility] Outpatient Encounter [id number] 09/15 [facility] Outpatient Encounter [id number] 09/26 [facility] Outpatient Encounter [id number] 10/11 [facility] Outpatient Encounter [id number] 10/12 [facility] Encounter [id number] 11/17 [facility] FEE [id number] Diagnos is: ICD-10- CM Z00.01 Encount er for general adult medical exam w abnorma l finding s NAJMA HANNAH 11/29 [facility] [place] 40 [id number] Diagnos is: ICD-10- CM Z00.01 Encount er for general adult medical exam w abnorma l finding s NAJMA HANNAH 11/29 [facility] Outpatient Encounter [id number] 12/06 [facility] Outpatient Encounter [id number] 12/07 [facility] Outpatient Encounter [id number] 12/09 [facility] Outpatient Encounter [id number] 12/13 [facility] Outpatient Encounter [id number] 12/15 [facility] Outpatient Encounter [id number] 12/15 [facility] Outpatient Encounter [id number] 12/16 [facility] Outpatient Encounter [id number] 12/16 [facility] Outpatient Encounter [id number] 12/19 [facility] Outpatient Encounter [id number] 12/19 [facility] Outpatient Encounter [id number] 12/27 [facility] Outpatient Encounter [id number] 01/03 [facility] Outpatient Encounter [id number] 01/04 [facility] Outpatient Encounter [id number] 01/04 [facility] CASE MGMT-ORAL HEALTH LIT [id number] Diagnos is: ICD-10- CM K03.6 Deposit s [accret ions] on teeth PAPANICOLA KAMLESHPHAM Asa 01/05 [facility] Outpatient Encounter [id number] 01/16 [facility] Outpatient Encounter [id number] 01/24 [facility] Outpatient Encounter [id number] 03/06 [facility] Outpatient Encounter [id number] [facility] 03/17 [facility] Social History Combined list of available smoking, tobacco, and other social history from Department of Defense and Veterans Affairs facilities. Social History Type Response Date Comment Sour e Tobacco smoking status NHIS [place]-TOBACCO NEVER USED 11/30/2023 [facility] History of tobacco use KS-TOBACCO NEVER USED 09/02/2022 [facility] History of tobacco use VA-TOBACCO NEVER USED 06/28/2020 [facility] History of tobacco use CURRENT NON-TOBAC CO USER-HX OF USE 11/15/2019 [facility] History of tobacco use CURRENT NON-TOBAC CO USER-HX OF USE 01/26/2019 [facility] History of tobacco use LIFETIME NON-USER OF TOBACCO 10/14/2013 [facility] History of tobacco use LIFETIME NON-USER OF TOBACCO 06/20/2013 [facility] History of tobacco use LIFETIME NON-USER OF TOBACCO 05/27/2013 [facility] History of tobacco use LIFETIME NON-USER OF TOBACCO 05/26/2013 [facility] History of tobacco use QUIT TOBACCO >7 Y EARS AGO 12/08/2012 [facility] History of tobacco use LIFETIME NON-USER OF TOBACCO 12/07/2012 [facility] History of tobacco use LIFETIME NON-USER OF TOBACCO 03/24/2012 [facility] History of tobacco use LIFETIME NON-USER OF TOBACCO 02/12/2012 [facility] History of tobacco use LIFETIME NON-USER OF TOBACCO 04/28/2011 [facility] History of tobacco use LIFETIME NON-USER OF TOBACCO 11/07/2010 [facility] History of tobacco use LIFETIME NON-USER OF TOBACCO 11/07/2010 [facility] History of tobacco use LIFETIME NON-USER OF TOBACCO 07/29/2008 [facility] History of tobacco use QUIT TOBACCO >7 Y EARS AGO 07/07/2008 [facility] History of tobacco use LIFETIME NON-USER OF TOBACCO 01/14/2008 [facility] History of tobacco use 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 Additional future care activities may be listed in the Assessment and Plan section. Date/Time Care Activity Care Activity Detail Facili ty 03/21/2025 AMBULATORY - MEDICINE AMBULATORY - MEDICI NE [facility] Advance Directives List of completed, amended, or rescinded Advance Directives on record at [facility] facilities. An actual copy of the Directive is not included. Date Advance Directive Provider Source 05/26/2013 ADVANCE DIRECTIVE GERARDO [facility]ORES [facility] 05/26/2013 ADVANCE DIRECTIVE DISCUSSION REESE DICKINSON [facility] 06/06/2011 ADVANCE DIRECTIVE DISCUSSION REESE DICKINSON [facility] 08/06/2010 ADVANCE DIRECTIVE REESE [facility]
[2025-03-21 15:08] VITALS: BP 130/74; PULSE 56; RESP 16; TEMP 36.6; O2SAT 98
--- NOTE | 2025-03-21 15:09 | XRR_ITS ---
PROCEDURE INFORMATION: Exam: XR Chest Exam date and time: 03/21/2025 3:22 PM Age: 79 years old Clinical indication: Pain; Angina pectoris; Additional info: Cp TECHNIQUE: Imaging protocol: Radiologic exam of the chest. Views: 1 view. COMPARISON: CT chest w con* [id number] 05/19/2019 3:23 PM FINDINGS: Lungs: Bibasilar atelectasis and/or scarring. No lobar consolidation. Pleural spaces: Unremarkable. No pleural effusion. No pneumothorax. Heart/Mediastinum: Postsurgical changes of the mediastinum. Bones/joints: Unremarkable. XR/XR chest 1V portable [id number] IMPRESSION: As above.
--- NOTE | 2025-03-21 15:10 | ECG_ITS ---
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 Measurements Intervals Couch Rate: 55 P: 28 NE: 190 QRS: 24 QRSD: 90 T: 95 QT: 443 QTc: 425 Interpretive Statements SINUS BRADYCARDIA Compared to ECG 10/25/2018 17:26:00 Myocardial infarct finding no longer present T-wave abnormality no longer present Possible ischemia no longer present Electronically Signed On 03-23-2025 08:59:55 CDT by Shabbir Major M.D. [id number]
--- OUTSIDE RECORDS SUMMARY | 2025-03-21 15:18 | XMS_ITS | Encounter Summary ---
Author Organization [facility] Address [address] [place] [address] Care Team Providers Care Cardiographer Name Role Phone Tirso Diamond MD Primary Care Provider +1 [phone] Encounter Details Date Type Department Care Team (Latest Contact Info) Description 12/27/2003 Outpatient Historical 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
--- OUTSIDE RECORDS SUMMARY | 2025-03-21 15:18 | XMS_ITS | Encounter Summary ---
Author Organization [facility] Address [address] [place] [address] Care Team Providers Care Telephoner Name Role Phone Tirso Diamond MD Primary Care Provider +1 [phone] Encounter Details Date Type Department Care Team (Latest Contact Info) Description 09/18/2004 Outpatient Historical [facility] Medicine [address] [address] Ted Castillo DO NO ADDRESS ON FILE ANXIETY STATE NOS (Primary Dx); ACTINIC KERATOSIS Social History Tobacco Use Types Packs/Day Years Used Date Smoking Tobacco: Never Assessed Sex and Gender Information Value Date Recorded Sex Assigned at Not on file Legal 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
--- OUTSIDE RECORDS SUMMARY | 2025-03-21 15:18 | XMS_ITS | Encounter Summary ---
Author Organization [facility] Address [address] [place] [address] Care Team Providers Care Edging Machine Setter Name Role Phone Tirso Diamond MD Primary Care Provider +1 [phone] Encounter Details Date Type Department Care Team (Latest Contact Info) Description 03/30/2002 Outpatient Historical [facility] Medicine [address] [address] Ted Castillo DO NO ADDRESS ON FILE ACTINIC KERATOSIS (Primary Dx) Social History Tobacco Use Types Packs/Day Years Used Date Smoking Tobacco: Never Assessed Sex and Gender Information Value Date Recorded Sex Assigned at Not on file 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
--- OUTSIDE RECORDS SUMMARY | 2025-03-21 15:18 | XMS_ITS | Encounter Summary ---
Author Organization [facility] Address [address] [place] [address] Care Team Providers Care Python Architect Name Role Phone Tirso Diamond MD Primary Care Provider +1 -[phone] Encounter Details Date Type Department Care Team (Latest Contact Info) Description 09/25/2006 Outpatient Historical [facility] Medicine [address] [address] Ted Castillo DO NO ADDRESS ON FILE Anxiety State, Unspecified (Primary Dx) Social History Tobacco Use Types Packs/Day Years Used Date Smoking Tobacco: Never Assessed Sex and Gender Information Value Date Recorded Sex Assigned at Not on file Legal 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
--- OUTSIDE RECORDS SUMMARY | 2025-03-21 15:18 | XMS_ITS | Encounter Summary ---
Author Organization [facility] Address [address] [place] [address] Care Team Providers Care Account Services Analyst Name Role Phone Tirso Diamond MD Primary Care Provider +1 -[phone] Encounter Details Date Type Department Care Team (Latest Contact Info) Description 06/01/2007 Outpatient Historical [facility] Medicine [address] [address] Ted Castillo DO NO ADDRESS ON FILE Other Specified Viral Warts (Primary Dx) Social History Tobacco Use Types Packs/Day Years Used Date Smoking Tobacco: Never Assessed Sex and Gender Information Value Date Recorded Sex Assigned at Not on file 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
--- OUTSIDE RECORDS SUMMARY | 2025-03-21 15:18 | XMS_ITS | Encounter Summary ---
Author Organization [facility] Address [address] [place] [address] Care Team Providers Care Solder Cream Maker Name Role Phone Tirso Diamond MD Primary Care Provider +1 -[phone] Encounter Details Date Type Department Care Team (Latest Contact Info) Description 09/05/2005 Outpatient Historical [facility] Medicine [address] [address] Ted Castillo DO NO ADDRESS ON FILE ANXIETY STATE NOS (Primary Dx) Social History Tobacco Use Types Packs/Day Years Used Date Smoking Tobacco: Never Assessed Sex and Gender Information Value Date Recorded Sex Assigned at Not on file Legal 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
--- OUTSIDE RECORDS SUMMARY | 2025-03-21 15:19 | XMS_ITS | Encounter Summary ---
Author Organization [facility] Address [address] [place] [address] Care Team Providers Care Director Of Pupil Personnel Program Name Role Phone Tirso Diamond MD Primary Care Provider +1 -[phone] Encounter Details Date Type Department Care Team (Latest Contact Info) Description 12/24/1999 Outpatient Historical [facility] Medicine [address] [address] Ted Castillo DO NO ADDRESS ON FILE Anxiety state, unspecified (Primary Dx) Social History Tobacco Use Types Packs/Day Years Used Date Smoking Tobacco: Never Assessed Sex and Gender Information Value Date Recorded Sex Assigned at Not on file Legal Sex Male 6:17 AM MANAGER PHYSICAL Gender Identity Not on file Sexual Orientation Not on file documented as of this encounter Plan of Treatment Not on file documented as of this encounter Visit Diagnoses Diagnosis Anxiety state, unspecified- Primary documented in this encounter Care Teams Director Of Pupil Personnel Program Relationship Specialty Start Date End Date Tirso Diamond MD [address] [address] PCP - General Family Practice 08/19/16 documented as of this encounter
--- OUTSIDE RECORDS SUMMARY | 2025-03-21 15:19 | XMS_ITS | Encounter Summary ---
Author Organization [facility] Address [address] [place] [address] Care Team Providers Care Fisher Quahog Name Role Phone Tirso Diamond MD Primary Care Provider +1 -[phone] Encounter Details Date Type Department Care Team (Latest Contact Info) Description 09/28/2000 Outpatient Historical [facility] Medicine [address] [address] Ted Castillo DO NO ADDRESS ON FILE Anxiety state, unspecified (Primary Dx) Social History Tobacco Use Types Packs/Day Years Used Date Smoking Tobacco: Never Assessed Sex and Gender Information Value Date Recorded Sex Assigned at Not on file Legal Sex Male 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
--- OUTSIDE RECORDS SUMMARY | 2025-03-21 15:19 | XMS_ITS | Encounter Summary ---
Author Organization [facility] Address [address] [place] [address] Care Team Providers Care Bods Developer Name Role Phone Tirso Diamond MD Primary Care Provider +1 -[phone] Encounter Details Date Type Department Care Team (Latest Contact Info) Description 06/03/1999 Outpatient Historical [facility] Medicine [address] [address] Ted Castillo DO NO ADDRESS ON FILE Backache, unspecified (Primary Dx); Anxiety state, unspecified Social History Tobacco Use Types Packs/Day Years Used Date Smoking Tobacco: Never Assessed Sex and Gender Information Value Date Recorded Sex Assigned at Not on file Legal Sex Male 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
--- OUTSIDE RECORDS SUMMARY | 2025-03-21 15:19 | XMS_ITS | Encounter Summary ---
Author Organization 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
--- OUTSIDE RECORDS SUMMARY | 2025-03-21 15:19 | XMS_ITS | Encounter Summary ---
Author Organization [facility] Address [address] [place] [address] Care Team Providers Care Pearl Peller Name Role Phone Tirso Diamond MD Primary Care Provider +1 -[phone] Encounter Details Date Type Department Care Team (Latest Contact Info) Description 11/22/2002 Outpatient Historical [facility] Medicine [address] [address] Ted Castillo DO NO ADDRESS ON FILE ANXIETY STATE NOS (Primary Dx); ACTINIC KERATOSIS Social History Tobacco Use Types Packs/Day Years Used Date Smoking Tobacco: Never Assessed Sex and Gender Information Value Date Recorded Sex Assigned at Not on file Legal 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
--- OUTSIDE RECORDS SUMMARY | 2025-03-21 15:19 | XMS_ITS | Encounter Summary ---
Author Organization [facility] Address [address] [place] [address] Care Team Providers Care Ethylbenzene Oxidizer Name Role Phone Tirso Diamond MD Primary Care Provider +1 -[phone] Encounter Details Date Type Department Care Team (Latest Contact Info) Description 09/20/2003 Outpatient Historical [facility] Medicine [address] [address] Ted Castillo DO NO ADDRESS ON FILE ANXIETY STATE NOS (Primary Dx); TINNITUS NOS Social History Tobacco Use Types Packs/Day Years Used Date Smoking Tobacco: Never Assessed Sex and Gender Information Value Date Recorded Sex Assigned at Not on file Legal 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
--- OUTSIDE RECORDS SUMMARY | 2025-03-21 15:19 | XMS_ITS | Encounter Summary ---
Author Organization [facility] Address [address] [place] [address] Care Team Providers Care [employer] Civil Engineer Name Role Phone Tirso Diamond MD Primary Care Provider [phone] Encounter Details Date Type Department Care Team (Latest Contact Info) Description 08/20/2001 Outpatient Historical [facility] Medicine [address] [address] Ted Castillo DO NO ADDRESS ON FILE ANXIETY STATE NOS (Primary Dx) Social History Tobacco Use Types Packs/Day Years Used Date Smoking Tobacco: Never Assessed Sex and Gender Information Value Date Recorded Sex Assigned at Not on file Legal Sex Male 6:17 AM [employer] Gender Identity Not on file Sexual Orientation Not on file documented as of this encounter Plan of Treatment Not on file documented as of this encounter Visit Diagnoses Diagnosis Anxiety state, unspecified- Primary documented in this encounter Care Teams [employer]water [employer] Civil Engineer Relationship Specialty Start Date End Date Tirso Diamond MD [address] [address] PCP - General Family Practice 08/19/16 documented as of this encounter
--- OUTSIDE RECORDS SUMMARY | 2025-03-21 15:20 | XMS_ITS | Data Portability ---
Author Organization [place] - [facility] [place], ADMIN Address [address] [place] [id number] Assessment Encounter Date Assessment Date Assessment LastModified by Organization Details LastModified Time 03/28/2016 03/28/2016 70 y/o male here for audio f/o , negative neuromas also shows right septal deviation, trial of flonase and nasal rinsing, pt is not a good surgical candidate , he is on blood thinner due to hx of several cardiac stents and CABG made a copy of his MRI to be given to his PCP due to incidental findings of apituitary tumor rtc in 6 months [email or web address] Not available 03/28/2016 10:41:07 12/22/2019 12/22/2019 74-year-old gentleman, history coronary disease, here for evaluation, for dyspnea on exertion, fluttering sensation in his chest. So far, his shortness of breath could be due to worsening coronary disease, versus baseline obstructive pulmonary disease. Is scheduled for a nuclear stress test, he will be scheduled for pulmonary function testing. [facility] available 01/04/2020 09:41:43 01/12/2020 01/12/2020 74 year old male, with a history of PCI placement x 9 and 5 vessel CABG, status post stress test which is abnormal with large area of ischemia, he has progressive chest pain, he will be scheduled for coronary angiogram. RTC in 2-3 weeks. rnjo Not available 01/13/2020 09:10:29 01/26/2020 01/26/2020 74 year old male, with a history of PCI placement x 9 and 5 vessel CABG, status post cardiac cath. Status post cardiac catheterization, with 4/ 4 patent grafts. Medical therapy for CAD RTC in 2 months. rnjo Not available 01/30/2020 12:57:46 12/12/2022 12/12/2022 77 year old male presents to the clinic for consultation regarding a screening colonoscopy. His previous colonoscopy was approximately 15 years ago and was normal, per patient. He denies changes in bowel habits, GI bleeding, or family history of GI cancers. He denies upper GI complaints. He denies smoking or alcohol consumption. He has a cardiac history of 9 cardiac stents and 6 MIs, the last incident of both was 4 years ago. He is anti-coagulated on plavix. He denies chest pain. Pt served in the during the [place] war and was exposed to Agent [place]. Impression: 1. Screening/survei llance colonoscopy 2. Previous colonoscopy 15 years ago 3. No family history of colon cancer 4. Past medical history: CAD with cardiac stents, the last was placed 4 years ago, hyperlipidemia, anxiety and muscle spasm. 5. Anti-coagulated on Plavix Recommendations: 1. Schedule screening/survei llance colonoscopy 2. Hold Plavix for 5 days prior 3. Follow up in GI clinic based on endoscopic findings. [email or web address] Not available 12/12/2022 20:37:44 Plan of Treatment Reminders Order Date Submit Date Provider Last Modified By Organization Details Last Modified Time Details Appointments None recorded . Lab CBC [address] [facility] (Lab)_do Not Use, [address], [place], [address], 0 09:17:18 CMP, serum or plasma [address] [facility] (Lab)_do Not Use, [address], [place], [address], 0 09:17:19 PT/INR [address] [facility] (Lab)_do Not Use, [address], [place], [address], 0 09:17:19 PTT (partial thrombop lastin time) mixing study [address] [facility] (Lab)_do Not Use, [address], [place], [address], 0 09:17:19 Referral None recorded . Procedures colonosc opy procedur e (PROC) - IV Lock, Initiate Take biopsies if indicate d, possible hemorroi shoaib banding, possible argon plasma coagulat ion, possible hot/cold snare polypect symone, possible dilation of strictur e. CPT: 68155, 36025, [id number] 2022 023 [email or web address] [facility] (Scheduling), [address], [place], [address], 3 09:55:34 Surgeries cardiac catheter ization (SURG) 2019 020 [email or web address] Not available 0 09:17:11 Imaging electroc ardiogra m [address] [facility] (Radiology), [address], [place], [address], 0 09:17:05 XR, chest [address] [facility] (Radiology), [address], [place], [address], 0 09:17:05 NM, myocardi al perfusio n scan - Lexiscan Cardioli te Stress [address] [facility] (Radiology), [address], [place], [address], 0 13:48:26 US, echocard iogram 2019 020 [facility], [address], [place], [address], 0 12:29:52 PFT, [facility] 2019 [facility] [address], [place], [address], 0 13:48:26 Medication Orders Suprep Bowel Prep Kit 17.5 gram-3.1 3 gram-1.6 gram oral solution 2022 0[email or web address] [facility], [address] [place] [place], [address], 3 09:16:41 Flonase Allergy Relief 50 mcg/actu ation nasal spray,ohara spension 2015 016 [email or web address] [facility], [address] [place], [address], 6 11:11:56 Patient TargetsNo targets recorded. Patient Instructions Encounter Date Encounter Id Patient Instructions Last Modified By Organization Details Last Modified Time 03/28/2016 [id number] hearing loss: ca re instructions [email or web address] Not available 03/28/2016 11:05:57 12/22/2019 [id number] high blood pressure: care instructions [facility] Not available 01/04/2020 09:41:53 learning about high blood pressure [facility] Not available 01/04/2020 09:41:53 IAlice , acting as scribe, for Dr. Abelardo Harrison, to document his verbalization of the History of Present Illness, Physical Exam, and Assessment and Plan. Marci Khalil, 12/22/2019, 1559 I, Dr. Abelardo Harrison, hereby attest that I personally reviewed the documentation in the History of Present Illness and Assessment and Plan and agree the documentation accurately represents these services and the decisions I made. I also reviewed the documented the Past, Family, and Social History and made changes and/or additions as needed. Dr. Abelardo Harrison MD. bfain Not available 12/22/2019 16:59:42 01/12/2020 [id number] IJoycelyn , acting as scribe, for Dr. Abelardo Harrison, to document his verbalization of the History of Present Illness, Physical Exam, and Assessment and Plan. rashad Benson, Chief Scribe, 01/12/2020, 147 pm I, Dr. Abelardo Harrison, hereby attest that I personally reviewed the documentation in the History of Present Illness, Physical Exam, and Assessment and Plan and agree the documentation accurately represents these services and the decisions I made. I also reviewed the documented the Past, Family, and Social History and made changes and/or additions as needed. Dr. Abelardo Harrison MD. aalna Not available 01/12/2020 14:47:52 01/26/2020 [id number] I, Joycelyn Benson , acting as scribe, for Dr. Abelardo Harrison, to document his verbalization of the History of Present Illness, Physical Exam, and Assessment and Plan. Joycelyn Benson, Chief Scribe, 01/26/2020, 352 pm I, Dr. Abelardo Harrison, hereby attest that I personally reviewed the documentation in the History of Present Illness, Physical Exam, and Assessment and Plan and agree the documentation accurately represents these services and the decisions I made. I also reviewed the documented the Past, Family, and Social History and made changes and/or additions as needed. Dr. Abelardo Harrison MD. alana Not available 01/26/2020 16:52:12 Reason for Referral None Reported. Results Created Date Observation Date Name Description Value Unit Range Abnormal Flag Note LastModifiedBy Organization Detail LastModifiedTime 03/03/20 16 03/03/2016 Crea iStat istat creatinine 1.1 mg/dL 0.5-1. 4 [place] [facility] [address], [place] [address] PATIE NT: MAURISIO ADEN Carmona [id number] LOC: SANDS BILL# : [id number] SEX: M : 07[birth year] ORDER ED BY: GALINDO ALLISON ORDER ED : 03/03 09:13 COLLE CTED: 03/03 08:20 ORDER : [id number] RECEI PAUL : 03/03 08:20 VENOU S; Opera tor=1 [id number] CHEMI STRY ----- ----- ----- ----- ----- ----- ----- ----- ----- ----- ----- ----- ----- ----- ----- ---- TEST NAME RESUL T UNITS RANGE S ABN FLAG ISTAT Creat inine 1.1 mg/dL 0.5-1 .4 ----- ----- ----- ----- ----- ----- ----- ----- ----- ----- ----- ----- ----- ----- ----- -- Not Available [facility] (Lab)_do Not Use [address], [place], [address], 03/03/2016 10:20:51 01/12/20 20 01/12/2020 CBC w/ auto diff WBC 7.7 K/uL 4.0-11 .0 Not Available [facility] (Lab)_do Not Use [address], [place], [address], 01/12/2020 17:51:57 01/12/20 20 01/12/2020 CBC w/ auto diff RBC 5.49 M/uL 4.44-6 .00 Not Available [facility] (Lab)_do Not Use [address], [place], [address], 01/12/2020 17:51:57 01/12/20 20 01/12/2020 CBC w/ auto diff HGB 16.1 g/dL 13.3-1 7.7 Not Available [facility] (Lab)_do Not Use [address], [place], [address], 01/12/2020 17:51:57 01/12/20 20 01/12/2020 CBC w/ auto diff HCT 47.6 % 40.0-5 4.0 Not Available [facility] (Lab)_do Not Use [address], [place], [address], 01/12/2020 17:51:57 01/12/20 20 01/12/2020 CBC w/ auto diff MCV 86.7 fL 80.0-9 7.0 Not Available [facility] (Lab)_do Not Use [address], [place], [address], 01/12/2020 17:51:57 01/12/20 20 01/12/2020 CBC w/ auto diff MCH 29.4 pg 27.0-3 3.0 Not Available [facility] (Lab)_do Not Use [address], [place], [address], 01/12/2020 17:51:57 01/12/20 20 01/12/2020 CBC w/ auto diff MCHC 33.9 g/dL 32.0-3 6.0 Not Available [facility] (Lab)_do Not Use [address], [place], [address], 01/12/2020 17:51:57 01/12/20 20 01/12/2020 CBC w/ auto diff RDW 14.5 % 11.5-1 4.5 Not Available [facility] (Lab)_do Not Use [address], [place], [address], 01/12/2020 17:51:57 01/12/20 20 01/12/2020 CBC w/ auto diff MPV 8.5 fL 7.4-10 .4 Not Available [facility] (Lab)_do Not Use [address], [place], [address], 01/12/2020 17:51:57 01/12/20 20 01/12/2020 CBC w/ auto diff platelet count 198 K/uL 150-45 0 Not Available [facility] (Lab)_do Not Use [address], [place], [address], 01/12/2020 17:51:57 01/12/20 20 01/12/2020 CBC w/ auto diff neutrophils 70.1 % 37.0-7 0.0 high Not Available [facility] (Lab)_do Not Use [address], [place], [address], 01/12/2020 17:51:57 01/12/20 20 01/12/2020 CBC w/ auto diff lymphocytes 20.6 % 21.0-5 1.0 low Not Available [facility] (Lab)_do Not Use [address], [place], [address], 01/12/2020 17:51:57 01/12/20 20 01/12/2020 CBC w/ auto diff monocytes 8.2 % 2.0-9. 0 Not Available [facility] (Lab)_do Not Use [address], [place], [address], 01/12/2020 17:51:57 01/12/20 20 01/12/2020 CBC w/ auto diff eosinophils 0.6 % 0.0-3. 0 Not Available [facility] (Lab)_do Not Use [address], [place], [address], 01/12/2020 17:51:57 01/12/20 20 01/12/2020 CBC w/ auto diff basophils 0.5 % 0.0-1. 0 Not Available [facility] (Lab)_do Not Use [address], [place], [address], 01/12/2020 17:51:57 01/12/20 20 01/12/2020 CBC w/ auto diff absolute neutrophils 5.4 K/uL 2.0-8. 0 Not Available [facility] (Lab)_do Not Use [address], [place], [place], [address], 01/12/2020 17:51:57 01/12/20 20 01/12/2020 CBC w/ auto diff absolute lymphocytes 1.6 K/uL 1.0-5. 5 Not Available [facility] (Lab)_do Not Use [address], [place], [place], [address], 01/12/2020 17:51:57 01/12/20 20 01/12/2020 CBC w/ auto diff absolute monocytes 0.6 K/uL 0.3-0. 8 Not Available [facility] (Lab)_do Not Use [address], [place], [place], [address], 01/12/2020 17:51:57 01/12/20 20 01/12/2020 CBC w/ auto diff absolute eosinophils 0.0 K/uL 0.0-0. 6 Not Available [facility] (Lab)_do Not Use [address], [place], [place], [address], 01/12/2020 17:51:57 01/12/20 20 01/12/2020 CBC w/ auto diff absolute basophils 0.0 K/uL 0.0-0. 3 Not Available [facility] (Lab)_do Not Use [address], [place], [place], [address], 01/12/2020 17:51:57 01/12/20 20 01/12/2020 CMP, serum or plasm a glucose 90 mg/dL 70-110 Not Available [facility] (Lab)_do Not Use [address], [place], [place], [address], 01/12/2020 18:07:24 01/12/20 20 01/12/2020 CMP, serum or plasm a BUN 18 mg/dL 7-18 Not Available [facility] (Lab)_do Not Use [address], [place], [place], [address], 01/12/2020 18:07:24 01/12/20 20 01/12/2020 CMP, serum or plasm a creatinine 1.0 mg/dL 0.5-1. 4 Not Available [facility] (Lab)_do Not Use [address], [place], [place], [address], 01/12/2020 18:07:24 01/12/20 20 01/12/2020 CMP, serum or plasm a calcium 9.4 mg/dL 8.5-10 .1 Not Available [facility] (Lab)_do Not Use [address], [place], [place], [address], 01/12/2020 18:07:24 01/12/20 20 01/12/2020 CMP, serum or plasm a sodium 141 mmol/ L 135-14 8 Not Available [facility] (Lab)_do Not Use [address], [place], [place], [address], 01/12/2020 18:07:24 01/12/20 20 01/12/2020 CMP, serum or plasm a potassium 4.5 mEq/L 3.5-5. 3 Not Available [facility] (Lab)_do Not Use [address], [place], [place], [address], 01/12/2020 18:07:24 01/12/20 20 01/12/2020 CMP, serum or plasm a chloride 105 mmol/ L 95-110 Not Available [facility] (Lab)_do Not Use [address], [place], [place], [address], 01/12/2020 18:07:24 01/12/20 20 01/12/2020 CMP, serum or plasm a CO2 29 mmol/ L 21-34 Not Available [facility] (Lab)_do Not Use [address], [place], [place], [address], 01/12/2020 18:07:24 01/12/20 20 01/12/2020 CMP, serum or plasm a albumin 3.9 g/dL 3.5-5. 0 Not Available [facility] (Lab)_do Not Use [address], [place], [address], 01/12/2020 18:07:24 01/12/20 20 01/12/2020 CMP, serum or plasm a bilirubin 0.7 mg/dL 0.0-1. 0 Not Available [facility] (Lab)_do Not Use [address], [place], [address], 01/12/2020 18:07:24 01/12/20 20 01/12/2020 CMP, serum or plasm a alkaline phosphatase 56 U/L 50-136 Not Available [facility] (Lab)_do Not Use [address], [place], [address], 01/12/2020 18:07:24 01/12/20 20 01/12/2020 CMP, serum or plasm a protein 7.8 g/dL 6.4-8. 3 Not Available [facility] (Lab)_do Not Use [address], [place], [address], 01/12/2020 18:07:24 01/12/20 20 01/12/2020 CMP, serum or plasm a ALT (SGPT) 33 U/L 30-65 Not Available [facility] (Lab)_do Not Use [address], [place], [address], 01/12/2020 18:07:24 01/12/20 20 01/12/2020 CMP, serum or plasm a AST (SGOT) 25 U/L 15-37 Not Available [facility] (Lab)_do Not Use [address], [place], [address], 01/12/2020 18:07:24 01/12/20 20 01/12/2020 CMP, serum or plasm a A/G ratio 1.00 Na 1.00-2 .50 Not Available [facility] (Lab)_do Not Use [address], [place], [place], [address], 01/12/2020 18:07:24 01/12/20 20 01/12/2020 CMP, serum or plasm a BUN/creatine ratio 18.00 Na 6.00-2 0.00 Not Available [facility] (Lab)_do Not Use [address], [place], [place], [address], 01/12/2020 18:07:24 01/12/20 20 01/12/2020 CMP, serum or plasm a anion gap 7.0 mmol/ L 3.0-11 .0 Not Available [facility] (Lab)_do Not Use [address], [place], [place], [address], 01/12/2020 18:07:24 01/12/20 20 01/12/2020 CMP, serum or plasm a osmolality calcuated 283 mOsm/ kg 280-30 1 Not Available [facility] (Lab)_do Not Use [address], [place], [place], [address], 01/12/2020 18:07:24 01/12/20 20 01/12/2020 GFR, estim ated (eGFR ), serum GFR >60.00 mL/mi n >60.00 Not Available [facility] (Lab)_do Not Use [address], [place], [place], [address], 01/12/2020 18:07:30 01/12/20 20 01/12/2020 PTT (part ial throm bopla stin time) mixin g study partial thromboplast in time 27.2 sec 18.0-4 4.0 Not Available [facility] (Lab)_do Not Use [address], [place], [place], [address], 01/12/2020 18:08:13 01/12/20 20 01/12/2020 PT/IN R prothrombin time 12.2 sec 11.0-1 4.0 Not Available [facility] (Lab)_do Not Use [address] [facility], [place], [address], 01/12/2020 18:08:14 01/12/20 20 01/12/2020 PT/IN R INR 1.1 Na see below INR Inter preti ve Data Throm botic Disor john Recom gabby d INR Proph ylaxi s/kiarra atmen t of: Venou s Throm bosis 2.0-3 .0 Pulmo nary Embol ism 2.0-3 .0 Preve ntion of Syste nick Embol ism from: Tissu e Heart Valve s 2.0-3 .0 Myoca rdial Infar ction 2.0-3 .0 (prev ent syste nick embol ism) Valvu lar Heart Disea se 2.0-3 .0 Atria l Fibri latio n 2.0-3 .0 Mecha nical Prost hetic Valve s 2.5.3 .5 Not Available [facility] (Lab)_do Not Use [address] [place], [address], 01/12/2020 18:08:14 03/03/20 16 03/03/2016 MRI brain W&wo cont 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 DATE: 2015. HISTOR Y: Asymme trical sensor ineura l hearin g loss. TECHNI QUE: Sagitt al T1W, axial T2W, axial FLAIR, axial T1W pre and postco ntrast , and axial DWI sequen zeb brain were obtain ed using 1.5 Sarai magnet . Additi onal shukla l and axial T1W sequen zeb before and after IV contra st, and axial T2W thin-s lice images throug h the brains tem and IACs were obtain ed. CONTRA ST: MultiH ance - 10 ml IV. COMPAR LIZETT: None. FINDIN GS: Many fronta l lobe sulci are mildly promin ent. The horizo ntal fissur es and sulci of the cerebe llum are slight ly enlarg ed. Remain ing ventri cles, cister ns, and subara chnoid spaces are normal in size and config uratio n. No midlin e shift, mass effect , or abnorm al extra- axial fluid collec tion is appare nt. No acute infarc t, hemorr freddy or enhanc ing intra- axial neopla sm is visibl e. No abnorm al enhanc ement is seen in the brain, mening es, or dura. Narrow , conflu ent rim of T2W/FL AIR hyperi ntensi ty is observ ed in the white matter abutti ng each latera l ventri armando. Multip le 2-5 mm, T2W/FL AIR bright , non-en hancin g foci are scatte red in the shukla radiat a, centru m semiov latonya, and subcor tical white matter bilate rally. The hills-w efraín matter differ entiat ion is normal . The cerebe llopon audi angles , brains tem, and visibl e cervic al spinal cord are normal . There is no cerebe llar tonsil lar ectopi a. The pituit adam gland is overal l normal in size, howeve r the right side pituit adam has a T2W bright , T1W interm ediate focus (5.2 x 3.4 x 3 mm) with limite d if any enhanc ement. This focus appear s to be displa cing the normal ly enhanc ing pituit adam tissue to the left. Corpus callos um is normal in size and config uratio n. Flow voids are presen t in the major intrac ranial arteri es and in the dural venous sinuse s. No aneury sm, AVM, or dural venous sinus thromb osis is appare nt. The optic chiasm , optic tracts , and optic nerves are normal . The orbits are normal . There is mild mucosa l thicke megan and partia l opacif icatio n in the left side of the spheno id sinus. Rightw myah nasose ptal deviat ion (8.2 mm) is observ ed near the level of the middle and inferi or turbin ates. A 2.5 mm rightw myah nasose ptal spur abuts the right latera l nasal passag e wall betwee n the right middle and inferi or turbin ates. No upper neck mass or lympha denopa thy is detect ed. No calvar ial neopla sm or acute fractu re is eviden t. The 5th crania l nerves are symmet braden in size, withou t abnorm al enhanc ement. Meckel 's cave and the cavern ous sinus are normal bilate rally. No defini tive trigem inal nerve displa cement or compre ssion is appare nt. Thin slice, high-r esolut ion images throug h the IACs and brains tem reveal no abnorm al enhanc ement or neopla sm involv ing the 7th/8t h crania l nerve comple xes. The cochle a, semici rcular canals , and vestib ule are symmet braden and normal bilate rally. No abnorm al enlarg ement of the vestib ular aquedu ct is seen on either side. The mastoi d air cells appear normal . No choles teatom a or mastoi ditis is appare nt. No defini tive crania l nerve displa cement or compre ssion. IMPRES SIONS: 1. No acute infarc t, hemorr freddy, intra- axial mass or hydroc ephalu s. 2. Normal bilate ral 7th/8t h CN, IACs and tempor al bones. 3. Mild / modera te suprat entori al small vessel diseas e. 4. Mild cerebr al (roddy. fronta l lobes) and cerebe llar atroph y. 5. 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 If sympto ms collins t furthe r evalua tion, dedica rosalba pituit adam MRI could be consid ered. 6. Rightw myah nasal septal deviat ion (marke d) and small spur. 7. Left side spheno id sinusi tis. DICTAT ED DATE: 1036 DICTAT ED BY: Magi Wallace M.D. TRANSC RIBED DATE: 1036 TRANSC RIBED BY: JORGE SIGNED BY: Magi Wallace M.D. DT: 2015 10:36 AM Dictat ed By: MAGI WALLACE MD DF: 2015 10:36 AM Signed By: MAGI WALLACE MD Provid er(s): Orderi que Provid er: Result Copies To: Attend ing Doctor : JESSE FREEMAN Referr ing Doctor : Ji chávez Doctor : Admgregoria mcneal Doctor : Other Health care Provid er: [facility] [address], [place], [address], 03/28/2016 10:41:07 03/03/20 16 03/03/2016 unlis rosalba imagcarl grey order No observ ation record ed. [id number] [facility] (Radiology) [address], [place], [address], 03/03/2016 15:01:46 01/05/20 20 01/04/2020 US, doppl er echoc ardio gram, w/ color flow R06.00 SOB Proced ure Acknow ledge Date: 2019 12:02 PM Transcabrera gleason Echoca rdiogr aphic Report Patirhoda t Name: ED GONZALES LEOP atient ID: [id number] 6 : 1944 (74y 6m)Tre dy Date: 2019 11:47: 14 AM Gender : Jung chavarria #: [id number] Tech: Locati on: [facility] Ref.Ph ysicia n: [id number], CHRISTY ZHOU Height (Cm): BSA: Weight (Kg): Qualit y: GoodOr john Physic : ABELARDO HARRISON Accoun t #: Proced ures: Echoca rdiogr aphic Report : Joya gleason echoca rdiogr am with comple te 2D, M-Mode , and Dopple r examin ation. Indica tions: Shortn ess of breath . Conclu sions: Normal left ventri cular systol ic functi on. Normal left ventri cular cavity size. Normal left ventri cular wall thickn ess. Ejecti on fracti on is visual ly estima rosalba at 60 %. Normal left ventri cular distol ic functi on for age. Findin gs: Rhythm : Normal sinus rhythm . Left Ventri armando: Normal left ventri cular systol ic functi on. Normal left ventri cular cavity size. Normal left ventri cular wall thickn ess. Ejecti on fracti on is visual ly estima rosalba at 60 %. Normal left ventri cular distol ic functi on for age. Right Ventri armando: Normal right ventri cular size. Normal right ventri cular systol ic functi on. Left Atrium : The left atrium is normal in size. Right Atrium : The right atrium is normal in size. Atrial Septum : Normal atrial septum . Mitral Valve: Normal appear ance and functi on of the mitral valve with trace physio logic regurg itatio n. Aortic Valve: Aortic valve not well visual ized. Trace aortic valve regurg itatio n. Tricus pid Valve: Normal appear ance and functi on of the tricus pid valve with trace physio logic regurg itatio n. Normal right ventri cular systol ic pressu re. Pulmon ic Valve: Pulmon ic valve not well visual ized. Perica rdium: Normal perica rdium with no signif icant perica rdial effusi on. Aorta: Normal aortic root. IVC: Normal size and normal respir atory collap se consis tent with normal right atrial pressu re (<5 mmHg). Pulmon adam Artery : Normal pulmon adam artery size. Not well visual ized. Measur ements : 2D/M Mode Dopple r Measur ement Value Normal Range Measur ement Value Normal Range RVDd MM 1.5 [ 2.0 - 4.2 ] cm MV E Peak Keith 0.6 [ 0.6 - 1.3 ] m/sec IVSd MM 0.8 [ 0.6 - 1.0 ] cm MV A Peak Keith 0.7 [ 1.0 - 1.2 ] m/sec IVSs MM 1.0 cm MV E/A 0.8 [ 0.8 - 1.5 ] ratio LVIDd MM 5.1 [ 4.2 - 5.8 ] cm TR Peak Keith 2.0 [ 1.0 - 2.8 ] m/sec LVIDs MM 3.5 [ 2.5 - 4.0 ] cm TR Peak PG 16.0 mmHg AoR Diam MM 3.0 [ 2.6 - 3.4 ] cm LA Dimens ion MM 4.5 [ 3.0 - 4.0 ] cm LA/Ao MM 1.5 ratio ACS MM 1.9 [ 3.1 - 3.7 ] cm LV EDV MOD 4ch 54.7 [ 69.0 - 185.0 ] ml LV ESV MOD 4ch 15.6 [ 22.0 - 78.0 ] ml Electr onical ly Signed By: Abelardo Harrison MD 01-04 09:30: 05 TILE MOLDER DT: 2019 08:30 AM Dictat ed By: ABELARDO HARRISON MD DF: 2019 08:30 AM Signed By: ABELARDO HARRISON MD ting Provid er(s): Orderi ng Provid er: Result Copies To: Attend ing Doctor : ABELARDO HARRISON Referr ing Doctor : Ji chávez Doctor : Oz mcneal Doctor : Other Health care Provid er: [facility] (Radiology) [address] [facility], [place], [address], 02/08/2020 12:06:10 01/12/20 20 01/12/2020 XR, chest , 1 view R94.39 PREADM IT FOR CATH Proced ure Acknow ledge Date: 2019 03:08 PM EXAM: Single view chest. HISTOR Y: Pre added for cathet erizat ion COMPAR LIZETT: None. FINDIN GS: The heart is normal in size. Previo us CABG is seen. Pulmon adam vascul arity is within normal limits . Left basila r depend ent opacit ies are seen. No eviden ce of pleura l effusi on or pneumo thorax . Osseou s struct ures are unrema rkable . IMPRES LINUS: No acute cardio pulmon adam findin gs. Left basila r depend ent atelec tasis. Previo us CABG. DICTAT ED DATE: 1521 DICTAT ED BY: Carlos Clifton M.D. TRANSC RIBED DATE: 1521 TRANSC RIBED BY: JORGE SIGNED BY: Carlos Clifton M.D. DT: 2019 03:21 PM Dictat ed By: CARLOS CLIFTON MD DF: 2019 03:21 PM Signed By: CARLOS LCIFTON MD Provid er(s): Orderi ng Provid er: Result Copies To: Attend ing Doctor : ABELARDO HARRISON Referr ing Doctor : Ji chávez Doctor : Admgregoria ing Doctor : Other Health care Provid er: [facility] (Radiology) [address], [place], [address], 02/08/2020 12:06:10 01/16/20 20 01/12/2020 haydee can cardi olite stres s test (PROC ) No observ ation record ed. BARCODE Not Available 2019 16:12:20 01/17/20 20 01/12/2020 haydee can cardi olite stres s test (PROC ) No observ ation record ed. BARCODE Not Available 2019 13:16:51 Result Notes Documentation Provider Name and Address Organization Details Recorded Time Xr, Chest, 1 View : R94.39 PREADMIT FOR CATH Procedure Acknowledge Date: 01/12/2020 03:08 PM EXAM: Single view chest. HISTORY: Pre added for catheterization COMPARISON: None. FINDINGS: The heart is normal in size. Previous CABG is seen. Pulmonary vascularity is within normal limits. Left basilar dependent opacities are seen. No evidence of pleural effusion or pneumothorax. Osseous structures are unremarkable. IMPRESSION: No acute cardiopulmonary findings. Left basilar dependent atelectasis. Previous CABG. DICTATED DATE: 01/12/20 152 DICTATED BY: Carlos Villarreal M.D. TRANSCRIBED DATE: 01/12/20 152 TRANSCRIBED BY: JORGE SIGNED BY: Carlos Villarreal M.D. Dictated By: CARLOS VILLARREAL MD DF: 01/12/2020 03:21 PM Signed By: CARLOS VILLARREAL MD Supporting Provider(s): Ordering Provider: Result Copies To: Attending Doctor: ABELARDO HARRISON Referring Doctor: Consulting Doctor: Admitting Doctor: Other Healthcare Provider: MORIS Carbajal, [address] 02/08/2020 12:06:10 Problems Name Problem SNOMED Code Status Onset Date Resolution Date Notes Provider Name and Address Organization Details Recorded Time Asymmetrical sensorineural hearing loss 385880392 Active LEONARD VILLATORO [address] [facility], [place], [address], [facility] - [address] 6 10:41:06 Nasal deviation 632359916 Active LEONARD VILLATORO [address] [facility], [place], [address], [facility] - [address] 6 10:41:06 Coronary arterioscleros is 94301966 Active 2019 kulwinder Dee, [address] 0 14:53:31 Problem Notes None recorded. Procedures Surgical History Date Name Laterality Status Provider Name and Address Organization Details Recorded Time 01/13/20 CARDIAC CATHETERIZATION (SURG) completed Gladis Serna LPN [address] 01/24/2020 14:42:35 Cardiovascular Procedure completed Joycelyn Benson [address] 01/12/2020 14:46:29 Cardiovascular Surgery completed REBECCA Barron [address] 01/16/2016 10:50:03 Imaging Results None recorded. Procedure Notes None recorded. Medical Equipment None Reported. Allergies No known drug allergies Medications Name Sig Start Date Stop Date Status Note LastModified by Organization Details LastModified Time atorvastati n 80 mg tablet Take 1 tablet every day by oral route as directed. active Not Available Not Available No t Available clopidogrel 75 mg tablet Take 1 tablet every day by oral route as directed. active Not Available Not Available No t Available baclofen 10 mg tablet TAKE 1/2 TO 1 (ONE-HALF TO ONE) TABLET BY MOUTH NIGHTLY NEEDED FOR PAIN active Not Available Not Available No t Available ranitidine 150 mg capsule Take 1 capsule twice a day by oral route as directed. 12/12 completed Not Available Not Available Not Available diazepam 10 mg tablet TAKE 1 TABLET BY MOUTH EVERY 12 HOURS NEEDED FOR ANXIETY active Not Available Not Available No t Available neomycin 3.5 mg/g-polymy harini B 10,000 unit/g-dexa meth 0.1 % eye oint APPLY 1/4 THIN LAYER ON EYELID 3 TIMES A DAY. START DAY OF PROCEDURE AND CONTINUE FOR 2 WEEKS active Not Available Not Available No t Available ezetimibe 10 mg tablet TAKE 1 TABLET BY MOUTH ONCE DAILY active Not Available Not Available No t Available Suprep Bowel Prep Kit 17.5 gram-3.13 gram-1.6 gram oral solution Take 177 mL twice a day by oral route as directed for 1 day. 2022 active Not Available Not Available Not Avai lable metoprolol succ 25 mg-hydrochl orothiazide 12.5 mg tablet,ext. rel 24 hr Take 1 tablet every day by oral route as directed. active Not Available Not Available No t Available Flonase Allergy Relief 50 mcg/actuati on nasal spray,suspe nsion Inhale 1 spray every day by intranasa l route in the morning for 30 days. 2015 active Not Available Not Available Not Avai lable Vitals Date Recorded Body height Body mass index (BMI) Body weight Heart rate Body temperature Systolic And Diastolic Provider Name and Address Organization Details Last Updated DateTime 3 162.56 cm 24.2 kg/m2 26316.5 2 g 50 /min 97.4 [degF] 140/65 mm[Hg] Elli Escudero [facility] [place] 3 11:25:12 Date Recorded Heart rate Body height Oxygen saturation Oxygen saturation in Arterial blood by Pulse oximetry Heart rate Respiratory rate Body mass index (BMI) Body weight Systolic And Diastolic Provider Name and Address Organization Details Last Updated DateTime 0 63 /min 162.56 cm 97 % 97 % 63 /min 16 /min 25.3 kg/m2 00658.8 g 122/64 mm[Hg] Britt Yang lp [facility] [place] 0 14:52:38 Date Recorded Body height Heart rate Oxygen saturation Oxygen saturation in Arterial blood by Pulse oximetry Heart rate Respiratory rate Body mass index (BMI) Body weight Systolic And Diastolic Provider Name and Address Organization Details Last Updated DateTime 0 162.56 cm 68 /min 97 % 97 % 68 /min 16 /min 25.3 kg/m2 86083.5 2 g 110/68 mm[Hg] kulwinder Dee [address] 0 14:10:38 Date Recorded Body height Heart rate Oxygen saturation Oxygen saturation in Arterial blood by Pulse oximetry Heart rate Respiratory rate Body mass index (BMI) Body weight Systolic And Diastolic Provider Name and Address Organization Details Last Updated DateTime 0 162.56 cm 68 /min 98 % 98 % 68 /min 16 /min 26.3 kg/m2 80588.6 3 g 122/60 mm[Hg] Britt Yagn lp n [address] 0 16:31:34 Date Recorded Heart rate Body mass index (BMI) Body weight Body height Systolic And Diastolic Provider Name and Address Organization Details Last Updated DateTime 03/28/2016 53 /min 25 kg/m2 55220.85 55 g 165.1 cm 144/86 mm[Hg] Kim Wilder RN [address] 03/28/2016 10:09:55 Social History Question Answer Notes LastModified by Organizat ion Details LastModified Time Tobacco Smoking Status Never Smoker REBECCA Barron null, [address] 01/16/2016 10:50:03 What Is Your Level Of Caffeine Consumption? Occasional [email or web address] Information not available 12/22/2019 Marital Status [email or web address] Informatio n not available 12/22/2019 Sex: Unknown Functional Status Question Answer Note LastModified by Organization D etails LastModified Time What is your level of alcohol consumption? None Information not available 12/22/2019 What is your occupation? [employer] Information not available 12/22/2019 Mental Status None recorded. Family History Relationship Description Onset Age of this Age Resolved Age Notes LastModified by Organization Details LastModified Time Brother Chronic obstructive pulmonary disease Not available 2019 14:55:41 Mother Chronic obstructive pulmonary disease [email or web address] Not available 2019 14:55:41 Medical History Condition Response HEART DISEASE Y USE OF BLOOD THINNERS Y HAVE YOU BEEN HOSPITALIZED OR SEEN IN [facility] IN THE PAST YEAR ? N HYPERTENSION Y Past Encounters Encounter ID Performer Location Encounter Start Date Encounter Closed Date Diagnosis/Indication Diagnosis SNOMED-CT Code Diagnosis ICD10 Code Diagnosis Note [id number] BRIANA CABRERA MD [facility] [address] [place] [address] 01/16/2016 09:45:31 01/16/2016 11:26:27 Asymmetrical sensorineural hearing loss 679609014 H90.42 [id number] BRIANA CABRERA MD [facility] [address] [place] [address] 03/28/2016 09:37:46 03/28/2016 10:44:31 Asymmetrical sensorineural hearing loss 627705637 H90.42 Nasal deviation 66223905 4 J34.2 [id number] ABELARDO HARRISON MD [facility] [address] [place] [address] 12/22/2019 14:08:37 01/04/2020 09:44:13 Chest pain 00752359 R07.9 Patient complains of a flutterin g chest pain. Order stress test for further evaluation . Dyspnea 249835143 R06.00 Patient complains of shortness of breath with minimal exertion, which is worsening. Schedule echo and PFT for further evaluation . Coronary arteriosclerosis 50961532 I25.10 The patient has been advised to continue current cardiac medication s and life style modificati ons, including following a low fat diet and gentle exercise as tolerated. Essential hypertension 52998073 I10 Well controlled on current medication s. BP on intake is 122/64. Patient will continue current antihypert ensive meds. Follow DASH (Dietary Approaches to Stop Hypertensi on) diet. [id number] ABELARDO HARRISON MD [facility] [address] [place] [address] 01/12/2020 09:04:31 01/13/2020 14:15:41 Essential hypertension 20273638 I10 Patient will continue current antihypert ensive meds. Follow DASH (Dietary Approaches to Stop Hypertensi on) diet. Chest pain 11145500 R07. 9 Status post 5 vessel CABG. Cardiovasc ular stress test abnormal 044134986 R94.39 Stress test showed apical anterior/l ateral ischemia. Schedule cardiac cath. Arterioscl erosis of coronary artery bypass graft 300775258 I25.700 Coronary arteriosclerosis in [place] artery 4851147257 107 I25.10 [id number] ABELARDO HARRISON MD [facility] [address] [place] [address] 01/26/2020 16:19:33 01/30/2020 13:40:49 Essential hypertension 90229237 I10 Patient will continue current antihypert ensive meds. Follow DASH (Dietary Approaches to Stop Hypertensi on) diet. Coronary arteriosclerosis in [place] artery 0980284129 107 I25.10 Status post cardiac cath, which showed severe [place] coronary disease, patent 4/4 bypass grafts (SVG to distal RCA, SVG to OM1, SVG to D1, vera to LAD. [id number] RAMA PASTRANA NP [facility] [address] [place] [address] 12/12/2022 10:59:46 12/12/2022 13:03:59 Screening colonoscopy 200864200 Z12.11 Health Concerns Section Related Observation LastModified by Organization Detai ls LastModified Time None Recorded Concern Status LastModified by Organization Details LastModified Time None Recorded Advance Directives Directive None Recorded Payers Insurance Date Sequence Insurance Name Policy Number Policy Walters Covered Member ID Walters Member ID Guarantor Name 12/12/2022 1 [place] [id number] Navneet Manuelegar [id number] Navneet Peterson Renegar 12/12/2022 [place] [id number] Navneet Renegar [id number] Navneet Peterson Renegar 12/15/2022 [employer] [facility] Navneet Renegar [id number] Navneet Manuelegar Notes Date Note Type Note Provider Name and Address Organization Details Recorded Time 03/28/2016 text/html Hearing LossRepo rted bypatient.Onset/Timin g:sudden onset; gradual onset; intermittent Location:no ringing in the ears; no ear fullness Quality:stable; no fluctuation LEONARD BRANCH [address] [facility], [place], [address], [facility] [place] 03/28/2016 12:07:57 12/22/2019 text/html Mr. Mandel is a 74 year old male, with a history of PCI placement x 9 and 5 vessel CABG, presenting as a new patient for cardiac evaluation. He arrives today with complaints of worsening dyspnea with minimal exertion and a fluttering chest pain. He also complains of dizziness when standing. He has no fever, no chills, no night sweats, no nausea, no vomiting, and no diarrhea. He is compliant with Atorvastatin 80 mg PO daily, Clopidogrel 75 mg PO daily, and Metoprolol succinate 25 mg/HCTZ 12.5 mg PO daily. The patient has no adverse effects from these medications and denies any bleeding. The patient is a nonsmoker. He sleeps at night with one pillow. ABELARDO HARRISON MD [address] [place] [address], [address], [facility] [place] 01/04/2020 09:42:14 01/12/2020 text/html Mr. Mandel is a 74 year old male, with a history of PCI placement x 9 and 5 vessel CABG, who is seen to discuss results of stress test. He arrives today with complaints of continued chest pain 4/10, pressure like and shortness of breath with minimal exertion. He denies any palpitations. He has no fever, no chills, no night sweats, no nausea, no vomiting, and no diarrhea. he underwent a nuclear stress test with large area of ischemia. He is compliant with Atorvastatin 80 mg PO daily, Clopidogrel 75 mg PO daily, and Toprol 25 mg/HCTZ 12.5 mg PO daily. The patient has no adverse effects from these medications. The patient is a nonsmoker. Testing:-01/12/20 stress test showed apical anterior/lateral ischemia. ABELARDO HARRISON MD [address] [place] [address], [address], [facility] [place] 01/13/2020 09:11:54 01/26/2020 text/html Mr. Mandel is a 74 year old male, with a history of PCI placement x 9 and CABG, who is seen to discuss results of cardiac cath. He arrives today with no significant complaints today and reports to feel well. He denies chest pain, shortness of breath, or palpitations. He has no fever, no chills, no night sweats, no nausea, no vomiting, and no diarrhea. He is compliant with Atorvastatin 80 mg PO daily, Clopidogrel 75 mg PO daily, and Toprol 25 mg/HCTZ 12.5 mg PO daily. The patient has no adverse effects from these medications. Patient had previously reported some chest pain, he underwent a stress test, which was abnormal, this was followed by cardiac catheterization. He had 4 out of 4 bypass grafts were patent, unfortunately, patient seems to insinuate that the cardiac catheterization was not performed by me. I spent 45 minutes, reviewing the films, explained to patient that he had some sedation which could impair his memory during the procedure. he was showned the time logs during the case. There was a Driver Education Instructoroutpatient physical therapist assistant present, who provide assistance during the procedure, he is not qualified to perform the procedure and it is therefore unlikely that he performed the procedure. The patient is a nonsmoker. Testing:-01/12/20 stress test showed apical anterior/lateral ischemia.-01/13/20 cardiac cath showed mildly elevated LVEDP 17 mmHg, severe [place] coronary disease, patent 4/4 bypass grafts (SVG to distal RCA, SVG to OM1, SVG to D1, vera to LAD. ABELARDO HARRISON MD [address] [place], [address], [facility] [place] 01/30/2020 12:59:24 12/12/2022 text/html 77 year old male presents to the clinic for consultation regarding a screening colonoscopy. His previous colonoscopy was approximately 15 years ago and was normal, per patient. He denies changes in bowel habits, GI bleeding, or family history of GI cancers. He denies upper GI complaints. He denies smoking or alcohol consumption. He has a cardiac history of 9 cardiac stents and 6 MIs, the last incident of both was 4 years ago. He is anti-coagulated on plavix. He denies chest pain. Pt served in the during the [place] war and was exposed to Agent [place]. Impression:1. Screening/surveillanc e colonoscopy2. Previous colonoscopy 15 years ago3. No family history of colon cancer4. Past medical history: CAD with cardiac stents, the last was placed 4 years ago, hyperlipidemia, anxiety and muscle spasm.5. Anti-coagulated on Plavix Recommendations:1. Schedule screening/surveillanc e colonoscopy2. Hold Plavix for 5 days prior3. Follow up in GI clinic based on endoscopic findings. RAMA PASTRANA NP [address] [facility], [place], [address], [facility] [place] 12/12/2022 20:38:02
--- OUTSIDE RECORDS SUMMARY | 2025-03-21 15:20 | XMS_ITS | Clinical Summary ---
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 Active metoprolol tartrate (LOPRESSOR) 12.5 mg Oral Tab Take 12.5 mg by mouth 2 times daily. Active rosuvastatin (CRESTOR) 20 mg Oral tablet Take 20 mg by mouth daily at bedtime. Active aspirin (MARGO) 81 mg Oral Tab Take 1 Tab by mouth daily. Active NITROGLYCERIN (NITRO-TIME ORAL) Take 1 Tab by mouth 1 time daily as needed. Active naphazoline-phenir amine (NAPHCON-A) 0.025-0.3 % solutionIndication s:Allergic conjunctivitis of both eyes Administer 1 Drop in both eyes 3 times daily as needed for Other (See Comment) (watering). 15 mL 9 Active diazePAM (VALIUM) 10 mg tabletIndications: SUSANA (generalized anxiety disorder) Take 1 Tablet (10 mg) by mouth every 12 hours as needed for Anxiety. 45 Tablet 5 0 Active clopidogreL (PLAVIX) 75 mg Tablet Take 1 Tablet (75 mg) by mouth daily. 90 Tablet 1 Active Hospital, Clinic, or Other Facility Administered Medication Ordered Dose Route Frequency Start Date End Date Status sodium chloride flush injection 5 mLIndications:Coronary artery disease involving tejon heart with unstable angina pectoris, unspecified vessel or lesion type (CMS/HCC),Unstable angina (CMS/HCC) 5 mL IV EVERY 12 HOURS 09/07/2020 Acti ve Active Problems Problem Noted Date Diagnosed Date Dyslipidemia 09/07/2020 Benign hypertension 09/08/2017 Stable angina 03/09/2017 SUSANA (generalized anxiety disorder) 04/03/2014 Old NH (myocardial infarction) 10/04/2012 CAD (coronary artery disease ), S/P NH/PTCI (09/30), S/P CABG (07/31) 10/01/2012 Overview (10/01/2012): S/P Angioplasty 12/31 S/P PTCI [facility] Hyperlipidemia 10/01/2012 Resolved Problems Problem Noted Date Diagnosed Date Resolved Date Colon cancer screening 10/01/201203/09 Overview (10/01/2012): Colonoscopy: around 2008 (no polyps, in [place]) Prostate cancer screening 10/01/2012 Overview (10/01/2012): Followed by PSA Immunizations Immunization Administration Dates Next Due (ADACEL/BOOSTRIX)(10 YR UP) TDAP VACCINE, 0.5ML, IM 11/23/2012 (PREVNAR 13)(6 WKS UP) PNEUM OCOCCAL CONJUGATE (PCV13) 0.5 ML, IM 08/28/2015 (SPIKEVAX) (12 YRS UP PRIMAR Y SERIES) COVID-19 VACCINE - MRNA-1273(PF) 100 MCG/0.5 ML IM SUSP 12/03/2020,11/05/2020 Adacel Vaccine > 7 Yo IM 03/02/2003 INFLUENZA VACCINE QUADRIVALENT 6 MOS UP PF IM Influenza Seasonal Unspecified Formulation IM Influenza Vaccine Tri Adjuvanted 65+ PF IM 06/21,08/26/2010 Influenza Vaccine Tri Split 4+ Pf Im 08/17/2017 Pneumococcal Polysaccharide Vaccine 23-fly IM VF C 03/02/2012 Pneumococcal conjugate, unspecified formulation 06/21/2012 Family History Medical History Relation Name Comments Lung Cancer Father Unknown Maternal Grandfather Unknown Maternal Grandmother Respiratory Disease Mother Other Paternal Grandfather complic ation from hip surgery Unknown Paternal Grandmother Cancer Sister Pancreatic CA Breast Cancer Neg Hx Colon Cancer Neg Hx Relation Name Status Comments Father Maternal Grandfather Maternal Grandmother Mother Paternal Grandfather Paternal Grandmother Sister Social History Tobacco Use Types Packs/Day Years Used Date Smoking Tobacco: Never Smokeless Tobacco: Never Tobacco Cessation:Counseling Given: No Alcohol Use Standard Drinks/Week Comments No 0 (1 standard drink = 0.6 oz pur e alcohol) Sex and Gender Information Value Date Recorded Sex Assigned at Not on file Legal Sex Male 6:17 AM 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 TUTOR Gender Identity Not on file Sexual Orientation Not on file Last Filed Vital Signs Vital Sign Reading Time Taken Comments Blood Pressure 108/62 12/13/2020 12:57 PM CDT Pulse 64 12/13/2020 12:57 PM CDT Temperature 36.3 C (97.4 F) 09/18/2020 11:01 AM GRADES 7 8 TUTOR Respiratory Rate 18 09/18/2020 11:01 AM GRADES 7 8 TUTOR Oxygen Saturation 95% 09/18/2020 4:15 PM GRADES 7 8 TUTOR Inhaled Oxygen Concentration - - Weight 66.2 kg (146 lb) 12/13/2020 12:57 PM CDT Height 162.6 cm (5' 4 ) 12/13/2020 12:57 PM CDT Body Mass Index 25.06 12/13/2020 12:57 PM CDT Plan of Treatment Health Maintenance Due Date Last Done Comments ZOSTER VACCINE (1 of 2) 1996 Traditional Medicare (ACO) A nnual Wellness Visit 10/02/2013 10/01/2012 RSV VACCINE (60+ or ) (1 - 1-dose 75+ series) 2021 DTAP/TDAP/TD VACCINES (3 - T d or Tdap) 11/23/2022 11/23/2012, 03/02/2003 INFLUENZA VACCINE (#1) 2024 , 09/29/2018, 09/29/2018, Additional history exists COVID-19 Vaccine ( - 2023-2 5 season) 2024 12/03/2020, 11/05/2020 PNEUMOCOCCAL VACCINE 50+ YEARS Completed 1 10/29/2014, 06/21/2012, 03/02/2012 Medical Devices Implanted Type Area Geologic Technician Device Identifier Shelf Expiration Date Model / Serial / Lot Closure Perclose Proglide [id number] - [id number] Implanted:Qty: 1 on 09/18/2020 at [facility] Closure Device Right: Groin MCARTHUR- VASC DEVICE 05/21/2022 [id number] / / [id number] Insurance MEDICARE PART A AND B [facility] [employer] Advance Directives For more information, please contact: [phone] * Full Code (Latest Code Status on File) Date Activated Date Inactivated Comments 09/18/2020 10:43 AM 09/18/2020 7:44 PM Care Teams Naturalization Examiner Relationship Specialty Start Date End Date Tirso Diamond MD [address] [address] PCP - General Family Practice 08/19/16
--- NOTE | 2025-03-21 15:29 | W.ED.CHESTPA ---
HPI - Chest Pain General: Chief Complaint: Chest Pain Stated Complaint: chest pressure Time Seen by Provider: 03/21/25 15:17 Source: patient Mode of arrival: ambulatory Limitations: no limitations History of Present Illness: 79-year-old male history of coronary disease states has been having chest pains going on for 2 months. States it has been intermittent denies any chest pain currently states had some mild dyspnea and cough as well. States he did lift a heavy object over the weekend and his pain intensified. He denies any worsening proving factors at this time denies any fevers. Denies any vomiting or diarrhea Associated symptoms: Deny abdominal pain, dyspnea, fever(s), nausea or vomiting Related Data Home Medications ?Medication ?Instructions ?Recorded ?Confirmed aspirin 81 mg tablet,delayed 81 mg PO DAILY 10/24/19 03/21/25 release (Adult Low Dose Aspirin) clopidogrel 75 mg tablet 75 mg PO DAILY 10/24/19 03/21/25 isosorbide mononitrate 60 mg 30 mg PO DAILY 10/24/19 03/21/25 tablet,extended release 24 hr cholecalciferol (vitamin D3) 50 2,000 unit PO DAILY 11/01/19 03/21/25 mcg (2,000 unit) tablet sacubitril 49 mg-valsartan 51 mg 1 tab PO BID 10/11/24 03/21/25 tablet erythromycin 5 mg/gram (0.5 %) eye See Rx Instructions .Route .COMPLEX 03/21/25 03/21/25 ointment (3.5 gram tube) folic acid 0.8 mg capsule 0.4 mg PO DAILY 03/21/25 03/21/25 prednisolone acetate 1 % eye 1 drp ophthalmic (eye) BID PRN eye 03/21/25 03/21/25 drops,suspension inflammation ranolazine 1,000 mg 1,000 mg PO Q12H 03/21/25 03/21/25 tablet,extended release,12 hr tretinoin 0.025 % topical cream See Rx Instructions .Route .COMPLEX 03/21/25 03/21/25 vit C 250 mg-vit E 90 mg-zinc 40 1 tab PO BID 03/21/25 03/21/25 mg-copper 1 [id number] capsule (PreserVision AREDS-2) Allergies Allergy/AdvReac Type Severity Reaction Status Date / Time ranolazine Allergy rash Verified 01/16/25 07:41 Review of Systems Const: Denies: fever(s), chills, body aches or change in appetite ENMT: Denies: throat pain or dental pain Card: Reports: chest pain Resp: Denies: dyspnea GI: Denies: abdominal pain, nausea, vomiting or diarrhea Musc: Denies: neck pain or back pain Skin/Breast: Denies: rash Neuro: Denies: headache(s) PFSH ED PFSH: Medical History Erectile dysfunction 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 CAD (coronary artery disease) Surgical History History of open heart surgery pt states he has had 8 heart attacks and 9 stents Family History Brother Heart attack Father , at age 76 Cancer lung Mother , at age 73 Lung disease Social History Smoking and tobacco/nicotine status: never used tobacco/nicotine Alcohol intake: never Substance/Drug Use: never Lives independently: Yes Household members: spouse and children Marital status: service: Yes branch: [employer] Current occupational status: retired and disabled Physical Exam Const: COMMON NORMALS: no acute distress, patient oriented x3 and healthy appearing HENMT: COMMON NORMALS: normocephalic and atraumatic HEAD & SCALP: normocephalic and atraumatic Eye: COMMON NORMALS: Equal, round and reactive pupils present and EOMs intact bilaterally PUPIL: Yes Equal, round and reactive pupils present Neck/C-Spine: COMMON NORMALS: full ROM and supple Chest: COMMONS NORMALS: normal inspection of the chest and normal palpation of entire chest wall Resp: COMMON NORMALS: normal respiratory effort, No retractions, No use of accessory muscles and clear to auscultation bilaterally AUSCULTATION: clear to auscultation bilaterally Cardio: COMMON NORMALS: regular rate, regular rhythm and No murmurs present (Cardio) RATE: regular rate RHYTHM: regular rhythm GI: COMMON NORMALS: Normal to inspection, nondistended, normoactive bowel sounds present, Soft to palpation, non-tender and no masses PALPATION: Yes Soft to palpation Extremity: COMMON NORMALS: normal to inspection and full ROM Neuro: COMMON NORMALS: patient oriented x3, moves all extremities and no focal motor deficits Psych: COMMON NORMALS: mental status grossly normal, Normal thought process present and cooperative THOUGHT PROCESS: Normal thought process present Skin: COMMON NORMALS: no rashes or lesions noted and no wounds GENERAL SKIN EXAM: no rashes or lesions noted Course Vital Signs: Vital signs: Vital Signs Temperature 97.8 F 03/21/25 15:08 Pulse Rate 51 L 03/21/25 17:01 Respiratory Rate 16 03/21/25 17:01 Blood Pressure 110/71 03/21/25 17:01 Pulse Oximetry 97 03/21/25 17:01 Oxygen Delivery Me thod Room Air 03/21/25 15:08 MDM - Chest Pain Medical Decision Making Patient presents for chest pain is atypical in nature initial repeat troponins are negative x-ray here is normal no signs of ACS no signs of pulmonary embolism he is stable for discharge he is to follow-up with his communications representative return if worsening he understands agrees to plan Medical Records I reviewed the patient's medical records. Lab Data I reviewed the patient's lab results. 03/21/25 15:28 03/21/25 15:28 Radiology Impressions Chest X-Ray 03/21/25 15:09 IMPRESSION: As above. Laboratory Results WBC 8.64 10^3/uL (3.29-11.43) 03/21/25 15: RBC 4.77 10^6/uL (3.85-5.65) 03/21/25 15:28 Hgb 14.60 g/dL (11.27-16.99) 03/21/25 15:28 Hct 44.3 % (37-53) 03/21/25 15:28 MCV 92.9 fl (82-101) 03/21/25 15:28 MCH 30.6 pg (27-33) 03/21/25 15:28 MCHC 33.0 g/dL (30-55) 03/21/25 15: RDW 13.9 % (12.1-15.1) 03/21/25 15: Plt Count 166 10^3/cmm (157-399) 03/21/25 15:28 MPV 9.9 fL (7.4-10.4) 03/21/25 15:28 Neut % (Auto) 70.3 % 03/21/25 15:28 Lymph % (Auto) 22.2 % 03/21/25 15:28 [place] % (Auto) 6.1 % 03/21/25 15:28 Eos % (Auto) 0.7 % 03/21/25 15:28 Baso % (Auto) 0.5 % 03/21/25 15: Neut # (Auto) 6.07 10^3/uL (1.8-7.7) 03/21/25 15: Lymph # (Auto) 1.9 10^3/uL (0.8-4.8) 03/21/25: [place] # (Auto) 0.5 10^3/uL (0.2-0.9) 03/21/25 15: Eos # (Auto) 0.1 10^3/uL (0.0-0.8) 03/21/25: Baso # (Auto) 0.0 10^3/uL (0.0-0.1) 03/21/25 15: Nucleated RBC % (auto) 0 % 03/21/25: Nucleated RBCs # 0.0 /100WBC 03/21/25 15: PT 13.90 SECONDS (12.1-14.9) 03/21/25 15: INR 1.00 (0.8-1.2) 03/21/25 15:28 Sodium 140 mmol/L (136-145) 03/21/25 15:28 Potassium 4.4 mmol/L (3.5-5.1) 03/21/25 15: Chloride 105 mmol/L (98-107) 03/21/25 15: Carbon Dioxide 23 mmol/L (22-29) 03/21/25 15: Anion Gap 16.4 (5-19) 03/21/25 15:28 BUN 14 mg/dL (8-23) 03/21/25 15:28 Creatinine 0.8 mg/dL (0.7-1.2) 03/21/25 15:28 GFR Calculation Not Reportable 03/21/25 15:28 Glucose 114 mg/dL (65-115) 03/21/25 15:28 Calculated Osmolality 291 mOsm/kg (285-295) 03/21/25 15:28 Calcium 9.2 mg/dL (8.5-10.5) 03/21/25 15:28 Total Bilirubin 0.4 mg/dL (0.15-1.2) 03/21/25 15:28 AST 20 U/L (0-40) 03/21/25 15:28 ALT 19 U/L (0-41) 03/21/25 15:28 Alkaline Phosphatase 57 U/L (40-130) 03/21/25 15:28 Troponin T Baseline 17 ng/L (0-15) H 03/21/25 15:28 Troponin T 120 Minute 17.25 ng/L (0-15) H 03/21/25 17:25 Delta Troponin T 0.25 ABS# (0-10) 03/21/25 17:25 NT-Pro-B Natriuret Pep 356 pg/mL (0-450) 03/21/25 15:28 Total Protein 6.5 g/dL (6.6-8.7) L 03/21/25 15:28 Albumin 4.1 g/dL (3.5-5.2) 03/21/25 15:28 Globulin 2.4 g/dL (1.3-4.6) 03/21/25 15:28 Lipase 28 U/L (13-60) 03/21/25 15:28 All radiology interpretation(s) finalized by discharge EKG Data EKG 1: I personally reviewed and interpreted this EKG as follows: EKG interpretation date: 03/21/25 EKG interpretation time: 15:10 Interpretation: sinus nathan hr [address] or t wave abnormalities qrs 90 qtc 432 Discharge Plan Discharge Patient Disposition: Home Clinical Impression: Chest pain Condition: Stable Prescriptions: No Action cholecalciferol (vitamin D3) 2,000 unit tablet 2,000 unit PO DAILY isosorbide mononitrate 60 mg tablet extended release 24 hr 30 mg PO DAILY aspirin [Adult Low Dose Aspirin] 81 mg tablet,delayed release (DR/EC) 81 mg PO DAILY clopidogrel 75 mg tablet 75 mg PO DAILY sacubitril-valsartan 49-51 mg tablet 1 tab PO BID ranolazine 1,000 mg Tablet Extended Release 12 Hr 1,000 mg PO Q12H prednisolone acetate 1 % drops,suspension 1 drp ophthalmic (eye) BID PRN (Reason: eye inflammation) erythromycin 5 mg/gram (0.5 %) ointment See Rx Instructions .ROUTE .COMPLEX Rx Instructions: Apply 0.25 inch Right Eye every evening as needed. folic acid 0.8 mg Capsule 0.4 mg PO DAILY PreserVision AREDS-2 250-90-40-1 mg Capsule 1 tab PO BID tretinoin 0.025 % Cream See Rx Instructions .ROUTE .COMPLEX Rx Instructions: Apply a pea size amount to affected area(s) on face at bedtime as needed for flares. Cleanse skin in the morning following treatment. Discharge Orders: Discharge ED (Routine); Ordered 03/21/25 Ordered By: Nadeem Varner Referrals: Tirso Diamond [Primary Care Provider, Family Practice] Discharge Diet: Advance as tolerated Discharge Activity: Resume usual activity Patient Instructions: Chest Pain (ED) Print Language: Estonian Coding Level of Care Code ED Healthcare Recruiter for Mitra Goldman
--- NOTE | 2025-03-21 15:36 | PC.PHAR ---
[facility] 03/21/25 3:36pm
[2025-03-21 15:39] LABS: Hematocrit 44.3 % (37-53); Hemoglobin 14.60 g/dL (11.27-16.99); Mean Corpuscular HGB Conc 33.0 g/dL (30-55); Mean Corpuscular Hemoglobin 30.6 pg (27-33); Mean Corpuscular Volume 92.9 fl (82-101); Nucleated Red Blood Cells % 0 %; Platelet Count 166 10^3/cmm (157-399); Red Blood Count 4.77 10^6/uL (3.85-5.65); White Blood Count 8.64 10^3/uL (3.29-11.43)
[2025-03-21 15:41] VITALS: BP 129/69; PULSE 51; RESP 16; O2SAT 97
[2025-03-21 15:49] LABS: INR 1.00 (0.8-1.2); Prothrombin Time 13.90 SECONDS (12.1-14.9)
[2025-03-21 15:55] LABS: Troponin(5th) Baseline 17 ng/L (0-15)
[2025-03-21 16:08] LABS: Alanine Aminotransferase 19 U/L (0-41); Albumin Level 4.1 g/dL (3.5-5.2); Alkaline Phosphatase 57 U/L (40-130); Blood Urea Nitrogen 14 mg/dL (8-23); Calcium 9.2 mg/dL (8.5-10.5); Carbon Dioxide 23 mmol/L (22-29); Chloride 105 mmol/L (98-107); Creatinine Clr Calc Pharmacy 66.1609; Globulin 2.4 g/dL (1.3-4.6); Glucose 114 mg/dL (65-115); Lipase 28 U/L (13-60); NT Pro B Type Natriuretic Pept 356 pg/mL (0-450); Osmolality Calculated 291 mOsm/kg (285-295); Sodium 140 mmol/L (136-145); Total Protein 6.5 g/dL (6.6-8.7)
[2025-03-21 16:13] LABS: Anion Gap 16.4 (5-19); Aspartate Amino Transferase 20 U/L (0-40); Potassium 4.4 mmol/L (3.5-5.1)
[2025-03-21 16:40] VITALS: BP 124/70; PULSE 48; RESP 16; O2SAT 96
[2025-03-21 17:01] VITALS: BP 110/71; PULSE 51; RESP 16; O2SAT 97
[2025-03-21 18:05] LABS: Troponin 5 2HR 17.25 ng/L (0-15); Troponin 5 2HR Delta 0.25 ABS# (0-10)
== END 2025-03-21 19:22 | disposition home or self-care (01) ==
PROVIDERS: Emergency Provider Emergency Medicine; PCP Family Medicine
DX: R07.9 Chest pain, unspecified (principal); Z79.82 Long term (current) use of aspirin; I25.10 Atherosclerotic heart disease of native coronary artery without angina pectoris
CPT/HCPCS: 36415; 71045; 80053; 83690; 83880; 84484; 85025; 85610; 93005; 99285